=== PATIENT | female | born 1960 | race Caucasian/White ===

== ENCOUNTER 2023-07-04 10:45 | Outpatient (OUT) | payer MEDICARE, SELFPAY ==
--- NOTE | 2023-07-04 10:50 | MM_ITS ---
Patient: SAIRA TAVERAS Exam Date: 07/04/2023 : 1960 Gender:F Ordering : DR VALERI KASPER M.D. Admission #: [id number] Family : Order #: [id number] CLICK HERE TO VIEW EXAM RADIOLOGY REPORT PROCEDURE: MM TOMOSYNTHESIS SCREENING BI COMPARISON: MG MAMM SCREEN 3D DI CAD, 07/03/2022. MG MAMM SCREEN DI W CAD, 09/28/2020. MG MAMM SCREEN DI W CAD, 08/14/2019. MG MAMM DI SCRN W CAD DIG, 02/03/2014. INDICATIONS: Screening Calculator Name NCI Breast Cancer Risk Assessment Tool 5 Year Breast Cancer Risk 1.60% Lifetime Breast Cancer Risk 5.90% Personal Breast Cancer No Personal Ovarian Cancer No Treatments None Family Cancers Mother with leukemia cancer at age 27. LOCATION: [facility] BREAST COMPOSITION: Scattered areas fibroglandular density. FINDINGS: DIAGNOSTIC CATEGORY 2--BENIGN FINDING: RIGHT BREAST: No significant suspicious finding. Scattered benign-appearing lymph nodes are present. No significant change has occurred. LEFT BREAST: No significant suspicious finding. Scattered benign-appearing calcifications are present. Scattered benign-appearing lymph nodes are present. No significant change has occurred. RECOMMENDATIONS: ROUTINE MAMMOGRAM AND CLINICAL EVALUATION IN 12 MONTHS. PLEASE NOTE: A NORMAL MAMMOGRAM DOES NOT EXCLUDE THE POSSIBILITY OF BREAST CANCER. A CLINICALLY SUSPICIOUS PALPABLE LUMP SHOULD BE BIOPSIED. Dictated by: Casey Rose M.D. on 07/05/2023 at 14:39 Approved by: Casey Rose M.D. on 07/05/2023 at 14:42
== END 2023-07-04 10:46 | disposition home or self-care (01) ==
LOC: MAMMO 10:45
PROVIDERS: PCP Family Medicine; Visit Provider Family Medicine
DX: Z12.31 Encounter for screening mammogram for malignant neoplasm of breast (principal); Z80.6 Family history of leukemia
CPT/HCPCS: 77063; 77067

== ENCOUNTER 2023-07-13 10:10 | Outpatient (OUT) | payer MEDICARE, SELFPAY ==
--- NOTE | 2023-07-13 10:26 | XR_ITS ---
The [address] [address] Patient Name: SAIRA TAVERAS MRN: [id number] date: 1960 Sex: F Assigned Patient Location: [facility] Current Patient Location: [facility] Accession/Order Number: [id number] Exam Date: 07/13/2023 10:30 Report Date: 07/13/2023 21:23 At the request of: JOSSELYN SHEPHERD Procedure: XR foot RT min 3V Exam: Radiographs: XR ankle RT min 3V, XR foot RT min 3V Reason for exam: Acute ankle pain M79.871 Comparison: None XR/XR foot RT min 3V IMPRESSION: Mild right ankle soft tissue swelling. Degenerative changes throughout the right foot and ankle.. Old healed fifth metatarsal fracture. Right foot and ankle radiographs are otherwise unremarkable. Electronically authenticated by: LOLIS ROGERS Date: 07/13/2023 21:23
--- NOTE | 2023-07-13 10:26 | XR_ITS ---
The [address] [address] Patient Name: SAIRA TAVERAS MRN: [id number] date: 1960 Sex: F Assigned Patient Location: [facility] Current Patient Location: [facility] Accession/Order Number: [id number] Exam Date: 07/13/2023 10:30 Report Date: 07/13/2023 21:23 At the request of: JOSSELYN SHEPHERD Procedure: XR ankle RT min 3V Exam: Radiographs: XR ankle RT min 3V, XR foot RT min 3V Reason for exam: Acute ankle pain M79.871 Comparison: None XR/XR ankle RT min 3V IMPRESSION: Mild right ankle soft tissue swelling. Degenerative changes throughout the right foot and ankle.. Old healed fifth metatarsal fracture. Right foot and ankle radiographs are otherwise unremarkable. Electronically authenticated by: LOLIS ROGERS Date: 07/13/2023 21:23
== END 2023-07-13 10:11 | disposition home or self-care (01) ==
LOC: RAD 10:14
PROVIDERS: PCP Family Medicine; Visit Provider Nurse Practitioner Family
DX: M79.671 Pain in right foot (principal); M25.571 Pain in right ankle and joints of right foot; Z87.81 Personal history of (healed) traumatic fracture
CPT/HCPCS: 73610; 73630

== ENCOUNTER 2024-07-08 11:05 | Outpatient (OUT) | payer MEDICARE, SELFPAY ==
--- NOTE | 2024-07-08 11:10 | MM_ITS ---
Patient Name: SAIRA TAVERAS MR#: [id number] : 1960 Exam Date: 07/08/2024 Ordering Doctor: MRS. Liliana Cho NP RADIOLOGY REPORT PROCEDURE: MM TOMOSYNTHESIS SCREENING BI COMPARISON: MM TOMOSYNTHESIS SCREENING BI, 07/04/2023. MG MAMM SCREEN 3D DI CAD, 07/03/2022. MG MAMM SCREEN DI W CAD, 09/28/2020. MG MAMM DI SCRN W CAD DIG, 02/03/2014. INDICATIONS: Screening Calculator Name NCI Breast Cancer Risk Assessment Tool 5 Year Breast Cancer Risk 1.60% Lifetime Breast Cancer Risk 5.70% Personal Breast Cancer No Personal Ovarian Cancer No Treatments None Family Cancers Mother with leukemia cancer at age 27. LOCATION: [facility] BREAST COMPOSITION: There are scattered areas of fibroglandular density. FINDINGS: DIAGNOSTIC CATEGORY 2--BENIGN FINDING: RIGHT BREAST: No significant suspicious finding. No significant change has occurred. LEFT BREAST: No significant suspicious finding. Scattered benign-appearing lymph nodes are present. No significant change has occurred. RECOMMENDATIONS: ROUTINE MAMMOGRAM AND CLINICAL EVALUATION IN 12 MONTHS. PLEASE NOTE: A NORMAL MAMMOGRAM DOES NOT EXCLUDE THE POSSIBILITY OF BREAST CANCER. A CLINICALLY SUSPICIOUS PALPABLE LUMP SHOULD BE BIOPSIED. Dictated by: Casey Rose M.D. on 07/09/2024 at 15:11 Approved by: Casey Rose M.D. on 07/09/2024 at 15:13
--- NOTE | 2024-07-08 11:25 | XR_ITS ---
The [address] [address] Patient Name: SAIRA TAVERAS MRN: [facility]:[id number] date: 1960 Sex: F Assigned Patient Location: [facility] Current Patient Location: [facility] Accession/Order Number: [id number] Exam Date: 07/08/2024 11:35 Report Date: 07/08/2024 13:23 At the request of: FABIAN SINHA Procedure: XR DEXA axial skeleton EXAMINATION: XR DEXA axial skeleton HISTORY: Medicare Wellness, Follow Up Exam Treatment Neoplasm COMPARISON: DEXA bone densitometry 07/07/2022 TECHNIQUE: Dual-energy X-ray absorptiometry (DXA) was performed. FINDINGS: SPINE ANALYSIS: Average bone mineral density is 1.462 g/cm2. T-score (standard deviation relative to young adult mean): 2.2 . +6.2% change since prior study. HIP ANALYSIS: Lowest bone mineral density is within the left femoral neck, 0.861 g/cm2. T-score (standard deviation relative to young adult mean): -1.3 . -1.0% change since prior study. XR/XR DEXA axial skeleton IMPRESSION: World Health Organization Classification: Osteopenia - Moderate Fracture Risk FRAX: Cannot be calculated. Pharmacologic treatment recommendations * No uniform recommendation applies to all patients. Management plans must be individualized. * Consider initiating pharmacologic treatment in postmenopausal women and men >= 50 years of age who have the following: Primary fracture prevention: * T-score <= - 2.5 at the femoral neck, total hip, lumbar spine, 33% radius (some uncertainty with existing data) by DXA. * Low bone mass (osteopenia: T-score between - 1.0 and - 2.5) at the femoral neck or total hip by DXA with a 10-year hip fracture risk >= 3% or a 10-year major osteoporosis-related fracture risk >= 20% (i.e., clinical vertebral, hip, forearm, or proximal humerus) based on the US-adapted FRAXregistered model. Secondary fracture prevention: * Fracture of the hip or vertebra regardless of BMD [4, 5]. * Fracture of proximal humerus, pelvis, or distal forearm in persons with low bone mass (osteopenia: T-score between - 1.0 and - 2.5). The decision to treat should be individualized in persons with a fracture of the proximal humerus, pelvis, or distal forearm who do not have osteopenia or low BMD [12, 13]. Grant MS, Precious SL, Abhijeet KL, Jailene EM, Bravo KG, AJ, Shelly ES. The clinician's guide to prevention and treatment of osteoporosis. Osteoporos Int. 2021;33(10):4276-3385. doi: 10.1007/h40604-571-93139-t. Epub 2021Feb 09. Erratum in: Osteoporos Int. 2021May 11;: PMID: 02897988; PMCID: [id number]. Electronically authenticated by: JASEN SOL Date: 07/08/2024 13:23
== END 2024-07-08 11:06 | disposition home or self-care (01) ==
LOC: MAMMO 11:06
PROVIDERS: PCP Family Medicine; Visit Provider Nurse Practitioner Family
DX: Z12.31 Encounter for screening mammogram for malignant neoplasm of breast (principal); Z09 Encounter for follow-up examination after completed treatment for conditions other than malignant neoplasm; Z00.00 Encounter for general adult medical examination without abnormal findings; Z80.6 Family history of leukemia; M85.88 Other specified disorders of bone density and structure, other site
CPT/HCPCS: 77063; 77067; 77080

== ENCOUNTER 2025-07-10 12:45 | Outpatient (OUT) | payer MEDICARE, SELFPAY ==
--- OUTSIDE RECORDS SUMMARY | 2025-07-10 12:48 | XMS_ITS | Encounter Summary ---
Author Organization [facility] Address [address] [place] [address] Care Team Providers Care Currency Examiner Name Role Phone Christina Martinez MD Unavailable Christina Martinez MD Primary Care Provider [phone] Shawanda Meza RN Unavailable Simin Lanier LPN Unavailable Tri Walsh NP Unavailable [phone] Encounter Details Date Type Department Care Team (Late st Contact Info) Description 07/05/2023 Orders Only [facility] [place] [facility] [address] [place] [phone] Christina Martinez MD [address] [place] [address] Social History Tobacco Use Types Packs/Day Years Used Date Smoking Tobacco: Former Cigarettes Q uit: 12/04/2017 Smokeless Tobacco: Never Alcohol Use Standard Drinks/Week Comments Never 0 (1 standard drink = 0.6 oz pur e alcohol) Humiliation, Afraid, Rape, and Kick questionnair e Answer Date Recorded Within the last year, have y ou been afraid of your partner or ex-partner? No 06/04/2023 Within the last year, have y ou been humiliated or emotionally abused in other ways by your partner or ex-partner? No Within the last year, have y ou been kicked, hit, slapped, or otherwise physically hurt by your partner or ex-partner? No 06/04/2023 Within the last year, have y ou been raped or forced to have any kind of sexual activity by your partner or ex-partner? No 06/04/2023 Social Connection and Isolat ion Panel [NHANES] Answer Date Recorded In a typical week, how many times do you talk on the phone with family, friends, or neighbors? More than three times a week 06/04/2023 How often do you get togethe r with friends or relatives? More than three times a week 06/04/2023 How often do you attend chur or quaker services? More than 4 times per year 06/04/2023 Do you belong to any clubs o r organizations such as presybeterian groups, unions, fraternal or athletic groups, or school groups? No 06/04/2023 How often do you attend meet ings of the clubs or organizations you belong to? Never 06/04/2023 Are you , , di vorced, , never , or living with a partner? 06/04/2023 AUDIT-C Answer Date Recorded Q1: How often do you have a drink containing alc ohol? Monthly or less 06/04/2023 Q2: How many drinks containi ng alcohol do you have on a typical day when you are drinking? 1 or 2 06/04/2023 Q3: How often do you have si x or more drinks on one occasion? Never 06/04/2023 Overall Financial Resource Strain (CARDIA) Answe r Date Recorded How hard is it for you to pa y for the very basics like food, housing, medical care, and heating? Not hard at all 06/04/2023 PHQ-2 Answer Date Recorded Patient Health Questionnaire-2 Score 0 04/20/2023 [facility] - Occupational Stress Questionnaire Answer Date Recorded Do you feel stress - tense, restless, nervous, or anxious, or unable to sleep at night because your mind is troubled all the time - these days? Only a little 06/04/2023 Exercise Vital Sign Answer Date Recorde d On average, how many days pe r week do you engage in moderate to strenuous exercise (like a brisk walk)? 1 day 06/04/2023 On average, how many minutes do you engage in exercise at this level? 10 min 06/04/2023 Hunger Vital Sign Answer Date Recorded Within the past 12 months, y ou worried that your food would run out before you got the money to buy more. Never true 06/04/20 23 Within the past 12 months, t he food you bought just didn't last and you didn't have money to get more. Never true 06/04/2023 PRAPARE - Transportation Answer Date Re corded In the past 12 months, has l ack of transportation kept you from medical appointments or from getting medications? No 05/16 In the past 12 months, has l ack of transportation kept you from meetings, work, or from getting things needed for daily living? No 06/04/2023 Housing Stability Vital Sign Answer Luis Carlos e Recorded In the last 12 months, was t here a time when you were not able to pay the mortgage or rent on time? No 06/04/2023 In the last 12 months, how many places have you lived? 1 06/04/2023 In the last 12 months, was t here a time when you did not have a steady place to sleep or slept in a long-term (including now)? No 06/04/2023 Comments Unknown Sex and Gender Information Value Date Recorded Sex Assigned at Not on file Legal Sex Female 7:30 PM EDT Gender Identity Not on file Sexual Orientation Not on file documented as of this encounter Plan of Treatment Upcoming Encounters Date Type Department Care Team (Late st Contact Info) Description 08/11/2025 1:30 PM EDT Office Visit [facility] [address] [place] [address] Christina Martinez MD [address] [facility] [address] [place] [address] 09/15/2025 10:00 AM EST Office Visit [facility] [address] [place] [address] Herve Quintana PA [address] [place] [address] documented as of this encounter Procedures Procedure Name Priority Date/Time Associated Diagnosis Comments MAMMOGRAM* Routine 07/04/2023 3:16 PM EDT documented in this encounter Results * MAMMOGRAM* (07/04/2023 3:16 PM EDT) Anatomical Region Laterality Modality Radiographic Holli ging Narrative 07/04/2023 3:16 PM EDT normal Christina Martinez MD IMG XR PROCEDURES Edited Result - Final documented in this encounter Visit Diagnoses Not on filedocumented in this encounter Care Teams Currency Examiner Relationship Specialty Start Date End Date Christina Martinez MD [address] [facility] [address] [place] [address] PCP - Janell GUERRERO 10/15/21 Christina Martinez MD [address] [facility] [address] [place] [address] PCP - General Family Medicine 02/22/23 Shawanda Meza, TIANA [address] [place] [address] Clinical Advocate Family Medicine 11/21/24 01/02/25 Simin Lanier LPN [address] [facility] [address] [place] [address] 01/02/25 Tri Walsh NP [address] [facility] [address] [place] [address] Nurse Practitioner Neurology 01/14/25 documented as of this encounter
--- OUTSIDE RECORDS SUMMARY | 2025-07-10 12:48 | XMS_ITS | Encounter Summary ---
Author Organization [facility] Address [address] [place] [address] Care Team Providers Care Locomotive Engineer Name Role Phone Christina Martinez MD Unavailable Christina Martinez MD Primary Care Provider Shawanda Meza RN Unavailable Simin Lanier LPN Unavailable Tri Walsh NP Unavailable [phone] Encounter Details Date Type Department Care Team (Late st Contact Info) Description 08/14/2023 Abstract [facility] [place] [facility] [address] [facility] 110 [place] [phone] Christina Martinez MD 112 [facility] 110 [place] [address] Social History Tobacco Use Types Packs/Day Years [...] How often do you attend chur or cheondoism services? More than 4 times per year 06/04/2023 Do you belong to any clubs o r organizations such as alevism groups, unions, fraternal or athletic groups, or [...] Recorded Patient Health Questionnaire-2 Score 0 04/20/2023 [facility] Health - Occupational Stress Questionnaire Answer Date [...] place to sleep or slept in a alf (including now)? No 06/04/2023 Comments Unknown Sex and Gender Information Value Date Recorded Sex Assigned at Not on file Legal Sex Female 7:30 PM EDT Gender Identity Not on file Sexual Orientation Not on file documented as of this encounter Plan of Treatment Upcoming Encounters Date Type Department Care Team (Late st Contact Info) Description 08/11/2025 1:30 PM EDT Office Visit [facility] [address] [facility] [address] [place] [address] Christina Martinez MD [address] [facility] [address] [place] [address] 09/15/2025 10:00 AM EST Office Visit [facility] [address] [place] [address] Herve Quintana PA [address] [place] [address] documented as of this encounter Visit Diagnoses Not on filedocumented in this encounter Care Teams Locomotive Engineer Relationship Specialty Start Date End Date Christina Martinez MD [address] [facility] [address] [place] [address] PCP - Janell GUERRERO 10/15/21 Christina Martinez MD [address] [facility] [address] [place] [address] PCP - General Family Medicine 02/22/23 Shawanda Meza, TIANA [address] [place] [address] Clinical Advocate Family Medicine 11/21/24 01/02/25 Simin Lanier LPN [address] [facility] [address] [place] [address] 01/02/25 Tri Walsh NP [address] [facility] [address] [place] [address] Nurse Practitioner Neurology 01/14/25 documented as of this encounter
--- OUTSIDE RECORDS SUMMARY | 2025-07-10 12:48 | XMS_ITS | Encounter Summary ---
Author Organization [facility] Address [address] [place] [address] Care Team Providers Care Mate First Name Role Phone Christina Kasper MD Unavailable Christina Kasper MD Primary Care Provider [phone] Shawanda Meza RN Unavailable [phone] Simin Lanier LPN Unavailable Tri Walsh NP Unavailable [phone] Encounter Details Date Type Department Care Team (Late st Contact Info) Description 07/05/2023 Clinisync Result Encounter [facility] External Department Unsolicited Christina Kasper MD [address] [facility] [address] [place] [address] Social History Tobacco Use Types Packs/Day Years [...] any clubs o r organizations such as judaism groups, unions, fraternal or athletic groups, or [...] Recorded Patient Health Questionnaire-2 Score 0 04/20/2023 [facility] Health - Occupational Stress Questionnaire Answer Date [...] place to sleep or slept in a senior care (including now)? No 06/04/2023 Comments Unknown Sex and Gender Information Value Date Recorded Sex Assigned at Not on file Legal Sex Female 7:30 PM EDT Gender Identity Not on file Sexual Orientation Not on file documented as of this encounter Plan of Treatment Upcoming Encounters Date Type Department Care Team (Late st Contact Info) Description 08/11/2025 1:30 PM EDT Office Visit [facility] [address] [facility] [address] [place] [address] Christina Kasper MD 112 [facility] 110 [place] [address] 09/15/2025 10:00 AM EST Office Visit [facility] [address] [place] [address] eHrve Quintana PA [address] [place] [address] documented as of this encounter Procedures Procedure Name Priority Date/Time Associated Diagnosis Comments MM TOMOSYNTHESIS SCREENING BI 07/05/2023 2:42 PM EDT documented in this encounter Results * MM TOMOSYNTHESIS SCREENING BI (07/05/2023 2:42 PM EDT) Anatomical Region Laterality Modality Other 07/05/2023 2:42 PM EDT Narrative 07/05/2023 2:42 [place] [address] Mammography Report Signed Patient: MARYJANE TRIPP MR#: [id number] : 1960 Acct:[id number] Age/Sex: 63 / F ADM Date: 07/04/23 Loc: MAMMO Attending Dr: CHRISTINA KASPER Ordering Physician: CHRISTINA KASPER Results: Date of Service: 07/04/23 Follow Up: Procedure(s): MM tomosynthesis screening BI Accession Number(s): [id number] cc: CHRISTINA KASPER Patient: MARYJANE TRIPP. Exam Date: 07/04/2023 : 1960 Gender:F Ordering : DR CHRISTINA KASPER M.D. Admission #: [id number] Family : Order #: [id number] CLICK HERE TO VIEW EXAM RADIOLOGY REPORT PROCEDURE: MM TOMOSYNTHESIS SCREENING BI COMPARISON: MG MAMM SCREEN 3D DI CAD, 07/03/2022. MG MAMM SCREEN DI W CAD, 09/28/2020. MG MAMM SCREEN DI W CAD, 08/14/2019. MG MAMM DI SCRN W CAD DIG, 02/03/2014. INDICATIONS: Screening Calculator Name NCI Breast Cancer Risk Assessment Tool 5 Year Breast Cancer Risk 1.60% Lifetime Breast Cancer Risk 5.90% Personal Breast Cancer No Personal Ovarian Cancer No Treatments None Family Cancers Mother with leukemia cancer at age 27. LOCATION: The [facility] BREAST COMPOSITION: Scattered areas fibroglandular density. FINDINGS: DIAGNOSTIC CATEGORY 2--BENIGN FINDING: RIGHT BREAST: No significant suspicious finding. Scattered benign-appearing lymph nodes are present. No significant change has occurred. LEFT BREAST: No significant suspicious finding. Scattered benign-appearing calcifications are present. Scattered benign-appearing lymph nodes are present. No significant change has occurred. RECOMMENDATIONS: ROUTINE MAMMOGRAM AND CLINICAL EVALUATION IN 12 MONTHS. PLEASE NOTE: A NORMAL MAMMOGRAM DOES NOT EXCLUDE THE POSSIBILITY OF BREAST CANCER. A CLINICALLY SUSPICIOUS PALPABLE LUMP SHOULD BE BIOPSIED. Dictated by: Casey Rose M.D. on 07/05/2023 at 14:39 Approved by: Casey Rose M.D. on 07/05/2023 at 14:42 Dictated By: Casey Rose M.D. Signed By: 07/05/23 144 DD/ 41 TD/TT: Program Analyst: Procedure Note Radiology, Radiologist, MD - 07/06/2023 [place] [address] Mammography Report Signed Patient: MARYJANE TRIPP AMR#: [id number] : 1960cct:[id number] Age/Sex: 63 / FADM Date: 07/04/23 Loc: MAMMO Attending Dr: CHRISTINA KASPER Ordering Physician: Bill KASPERults: Date of Service: 07/04/23Follow Up: Procedure(s): MM tomosynthesis screening BI Accession Number(s): [id number] cc: CHRISTINA KASPER Patient: MARYJANE TRIPP Exam Date: 07/04/2023 : 1960 Gender:F Ordering : DR CHRISTINA KASPER M.D. Admission #: [id number] Family : Order #: [id number] CLICK HERE TO VIEW EXAM RADIOLOGY REPORT PROCEDURE: MM TOMOSYNTHESIS SCREENING BI COMPARISON: MG MAMM SCREEN 3D DI CAD, 07/03/2022. MG MAMM SCREEN BILW CAD, 09/28/2020. MG MAMM SCREEN DI W CAD, 08/14/2019. MG MAMM DI SCRNW CAD DIG, 02/03/2014. INDICATIONS: Screening Calculator Name NCI Breast Cancer Risk Assessment Tool 5 Year Breast Cancer Risk 1.60% Lifetime Breast Cancer Risk 5.90% Personal Breast Cancer No Personal Ovarian Cancer No Treatments None Family Cancers Mother with leukemia cancer at age 27. LOCATION: The [facility] BREAST COMPOSITION: Scattered areas fibroglandular density. FINDINGS: DIAGNOSTIC CATEGORY 2--BENIGN FINDING: RIGHT BREAST: No significant suspicious finding. Scatteredbenign-appearing lymph nodes are present. No significant change has occurred. LEFT BREAST: No significant suspicious finding. Scatteredbenign-appearing calcifications are present. Scattered benign-appearing lymph nodes are present. No significant change has occurred. RECOMMENDATIONS: ROUTINE MAMMOGRAM AND CLINICAL EVALUATION IN 12 MONTHS. PLEASE NOTE: A NORMAL MAMMOGRAM DOES NOT EXCLUDE THE POSSIBILITY OFBREAST CANCER. A CLINICALLY SUSPICIOUS PALPABLE LUMP SHOULD BE BIOPSIED. Dictated by: Casey Rose M.D. on 07/05/2023 at 14:39 Approved by: Casey Rose M.D. on 07/05/2023 at 14:42 Dictated By: Casey Rose M.D. Signed By:07/05/231442 DD/ 41 TD/TT: Program Analyst: Christina Kasper MD [facility] Final Result documented in this encounter Visit Diagnoses Not on filedocumented in this encounter Care Teams Mate First Relationship Specialty Start Date End Date Christina Kasper MD [address] [facility] [address] [place] [address] PCP - Janell GUERRERO 10/15/21 Christina Kasper MD [address] [facility] 110 [place] [address] PCP - General Family Medicine 02/22/23 Shawanda Meza RN [address] [place] [address] Clinical Advocate Family Medicine 11/21/24 01/02/25 Simin Lnaier LPN [address] [facility] [address] [place] [address] 01/02/25 Tri Walsh NP [address] [facility] [address] [place] [address] Nurse Practitioner Neurology 01/14/25 documented as of this encounter
--- OUTSIDE RECORDS SUMMARY | 2025-07-10 12:48 | XMS_ITS | Encounter Summary ---
Author Organization [facility] Address [address] [place] [place] [address] Care Team Providers Care Spectacle Truer Name Role Phone Christina Kapser MD Unavailable Christina Kasper MD Primary Care Provider [phone] Shawanda Meza RN Unavailable Simin Lanier LPN Unavailable Tri Walsh NP Unavailable [phone] Encounter Details Date Type Department Care Team (Late st Contact Info) Description 07/09/2024 Clinisync Result Encounter [facility] External Department Unsolicited Liliana Cho, RESEARCH PROJECT MANAGER [address] [facility] 110 [place] [address] Social History Tobacco Use Types Packs/Day Years [...] How often do you attend chur or pentecostalism services? More than 4 times per year 06/04/2023 Do you belong to any clubs o r organizations such as sikh groups, unions, fraternal or athletic groups, or [...] Answer Date Recorded Patient Health Questionnaire-2 Score 1 01/10/2024 [facility] - [...] place to sleep or slept in a custodial (including now)? No 06/04/2023 Comments Unknown Sex and Gender Information Value Date Recorded Sex Assigned at Not on file Legal Sex Female 7:30 PM EDT Gender Identity Not on file Sexual Orientation Not on file documented as of this encounter Plan of Treatment Upcoming Encounters Date Type Department Care Team (Late st Contact Info) Description 08/11/2025 1:30 PM EDT Office Visit [facility] 112 [facility] 110 [place] [address] Christina Kasper MD 112 [facility] 110 [place] [address] 09/15/2025 10:00 AM EST Office Visit [facility] [address] [place] [address] Herve Quintana PA [address] [place] [address] documented as of this encounter Procedures Procedure Name Priority Date/Time Associated Diagnosis Comments MM TOMOSYNTHESIS SCREENING BI 07/09/2024 3:14 PM EDT documented in this encounter Results * MM TOMOSYNTHESIS SCREENING BI (07/09/2024 3:14 PM EDT) Anatomical Region Laterality Modality Other 07/09/2024 3:14 PM EDT Narrative 07/09/2024 3:14 PM EDT The [address] [address] Mammography Report Signed Patient: MARYJANE TRIPP MR#: [id number] : 1960 Acct:[id number] Age/Sex: 64 / F ADM Date: 07/08/24 Loc: MAMMO Attending Dr: Liliana Cho NP Ordering Physician: Liliana Cho NP Results: Date of Service: 07/08/24 Follow Up: Procedure(s): MM tomosynthesis screening BI Accession Number(s): [id number] cc: CHRISTINA KASPER ; Liliana Cho NP Patient Name: MARYJANE TRIPP MR#: [id number] : 1960 Exam Date: 07/08/2024 Ordering Doctor: MRS. Liliana Cho NP RADIOLOGY REPORT PROCEDURE: MM TOMOSYNTHESIS SCREENING BI COMPARISON: MM TOMOSYNTHESIS SCREENING BI, 07/04/2023. MG MAMM SCREEN 3D DI CAD, 07/03/2022. MG MAMM SCREEN DI W CAD, 09/28/2020. MG MAMM DI SCRN W CAD DIG, 02/03/2014. INDICATIONS: Screening Calculator Name NCI Breast Cancer Risk Assessment Tool 5 Year Breast Cancer Risk 1.60% Lifetime Breast Cancer Risk 5.70% Personal Breast Cancer No Personal Ovarian Cancer No Treatments None Family Cancers Mother with leukemia cancer at age 27. LOCATION: [facility] BREAST COMPOSITION: There are scattered areas of fibroglandular density. FINDINGS: DIAGNOSTIC CATEGORY 2--BENIGN FINDING: RIGHT BREAST: No significant suspicious finding. No significant change has occurred. LEFT BREAST: No significant suspicious finding. Scattered benign-appearing lymph nodes are present. No significant change has occurred. RECOMMENDATIONS: ROUTINE MAMMOGRAM AND CLINICAL EVALUATION IN 12 MONTHS. PLEASE NOTE: A NORMAL MAMMOGRAM DOES NOT EXCLUDE THE POSSIBILITY OF BREAST CANCER. A CLINICALLY SUSPICIOUS PALPABLE LUMP SHOULD BE BIOPSIED. Dictated by: Casey Rose M.D. on 07/09/2024 at 15:11 Approved by: Casey Rose M.D. on 07/09/2024 at 15:13 Dictated By: Casey Rose M.D. Signed By: 07/09/244 DD/ 13 TD/TT: District Adviser: Procedure Note Radiology, Radiologist, MD - 07/09/2024 The [place] [id number] Mammography Report Signed Patient: MRAYJANE TRIPP AMR#: [id number] : 1960cct:[id number] Age/Sex: 64 / FADM Date: 07/08/24 Loc: MAMMO Attending Dr: Liliana Cho RESEARCH PROJECT MANAGER Ordering Physician: Liliana Cho NPResults: Date of Service: 07/08/24Follow Up: Procedure(s): MM tomosynthesis screening BI Accession Number(s): [id number] cc: CHRISTINA KASPER ; Liliana Cho NP Patient Name: MARYJANE TRIPP MR#: [id number] : 1960 Exam Date: 07/08/2024 Ordering Doctor: MRS. Liliana Cho RESEARCH PROJECT MANAGER RADIOLOGY REPORT PROCEDURE: MM TOMOSYNTHESIS SCREENING BI COMPARISON: MM TOMOSYNTHESIS SCREENING BI, 07/04/2023. MG MAMM [id number] DI CAD, 07/03/2022. MG MAMM SCREEN DI W CAD, 09/28/2020. MG MAMM BILSCRN W CAD DIG, 02/03/2014. INDICATIONS: Screening Calculator Name NCI Breast Cancer Risk Assessment Tool 5 Year Breast Cancer Risk 1.60% Lifetime Breast Cancer Risk 5.70% Personal Breast Cancer No Personal Ovarian Cancer No Treatments None Family Cancers Mother with leukemia cancer at age 27. LOCATION: [facility] BREAST COMPOSITION: There are scattered areas of fibroglandulardensity. FINDINGS: DIAGNOSTIC CATEGORY 2--BENIGN FINDING: RIGHT BREAST: No significant suspicious finding. No significant changehas occurred. LEFT BREAST: No significant suspicious finding. Scatteredbenign-appearing lymph nodes are present. No significant change has occurred. RECOMMENDATIONS: ROUTINE MAMMOGRAM AND CLINICAL EVALUATION IN 12 MONTHS. PLEASE NOTE: A NORMAL MAMMOGRAM DOES NOT EXCLUDE THE POSSIBILITY OFBREAST CANCER. A CLINICALLY SUSPICIOUS PALPABLE LUMP SHOULD BE BIOPSIED. Dictated by: Casey Rose M.D. on 07/09/2024 at 15:11 Approved by: Casey Rose M.D. on 07/09/2024 at 15:13 Dictated By: Casey Rose M.D. Signed By:07/09/24 1514 DD/ 1514 TD/TT: District Adviser: Liliana Cho RESEARCH PROJECT MANAGER [facility] Final Result documented in this encounter Visit Diagnoses Not on filedocumented in this encounter Additional Health Concerns Assessment Noted Time PHQ-9 Depression Total Score: 9 01/10/20 24 10:00 AM EDT documented as of this encounter Care Teams Spectacle Truer Relationship Specialty Start Date End Date Christina Kasper MD [address] [facility] 110 [place] [address] PCP - Janell GUERRERO 10/15/21 Christina Kasper MD [address] [facility] 110 [place] [address] PCP - General Family Medicine 02/22/23 Shawanda Meza, RN [address] [place] [address] Clinical Advocate Family Medicine 11/21/24 01/02/25 Simin Lanier LPN [address] [facility] 110 [place] [address] 01/02/25 Tri Walsh NP [address] [facility] 110 [place] [address] Nurse Practitioner Neurology 01/14/25 documented as of this encounter
--- OUTSIDE RECORDS SUMMARY | 2025-07-10 12:48 | XMS_ITS | Encounter Summary ---
Author Organization [facility] Address [address] [place] [address] Care Team Providers Care Private Branch Exchange Service Adviser Name Role Phone Christina Martinez MD Unavailable Christina Martinez MD Primary Care Provider Shawanda Meza RN Unavailable Simin Lanier LPN Unavailable Tri Walsh NP Unavailable [phone] Encounter Details Date Type Department Care Team (Late st Contact Info) Description 06/12/2023 Abstract [facility] [place] [facility] 112 [facility] 110 [place] [phone] Christina Martinez MD 112 [facility] 110 [place], [place] [address] Social History Tobacco Use Types Packs/Day Years [...] How often do you attend chur or rastafarian services? More than 4 times per year 06/04/2023 Do you belong to any clubs o r organizations such as amish groups, unions, fraternal or athletic groups, or [...] Recorded Patient Health Questionnaire-2 Score 0 04/20/2023 [facility] Health - Occupational Stress Questionnaire Answer Date [...] place to sleep or slept in a assisted (including now)? No 06/04/2023 Comments Unknown Sex and Gender Information Value Date Recorded Sex Assigned at Not on file Legal Sex Female 7:30 PM EDT Gender Identity Not on file Sexual Orientation Not on file documented as of this encounter Plan of Treatment Upcoming Encounters Date Type Department Care Team (Late st Contact Info) Description 08/11/2025 1:30 PM EDT Office Visit [facility] [address] [facility] 110 [place] [address] Christina Martinez MD [address] [facility] 110 [place] [address] 09/15/2025 10:00 AM EST Office Visit [facility] [address] [place] [address] Herve Quintana PA [address] [place] [address] documented as of this encounter Visit Diagnoses Not on filedocumented in this encounter Care Teams Private Branch Exchange Service Adviser Relationship Specialty Start Date End Date Christina Martinez MD [address] [facility] [address] [place] [address] PCP - Janell GUERRERO 10/15/21 Christina Martinez MD [address] [facility] [address] [place] [address] PCP - General Family Medicine 02/22/23 Shawanda Meza, TIANA [address] [place] [address] Clinical Advocate Family Medicine 11/21/24 01/02/25 Simin Lanier LPN [address] [facility] 110 [place] [address] 01/02/25 Tri Walsh NP [address] [facility] 110 [place] [address] Nurse Practitioner Neurology 01/14/25 documented as of this encounter
--- OUTSIDE RECORDS SUMMARY | 2025-07-10 12:48 | XMS_ITS | Encounter Summary ---
Author Organization [facility] Address [address] [place] [address] Care Team Providers Care Clinical Transplant Coordinator Name Role Phone Christina Martinez MD Unavailable Christina Martinez MD Primary Care Provider Shawanda Meza RN Unavailable Simin Lanier LPN Unavailable Tri Walsh NP Unavailable [phone] Encounter Details Date Type Department Care Team (Late st Contact Info) Description 08/28/2024 Abstract [facility] [place] [facility] 112 [facility] 110 [place] [address] Christina Martinez MD 112 [facility] 110 [place] [address] Social History Tobacco Use Types Packs/Day Years Used Date Smoking Tobacco: Former Cigarettes Q uit: 12/04/2017 Smokeless Tobacco: Never Alcohol Use Standard Drinks/Week Comments Never 0 (1 standard drink = 0.6 oz pur e alcohol) B1300 Health Literacy Answer Date Recor ded How often do you need to hav e someone help you when you read instructions, pamphlets, or other written material from your doctor or pharmacy? Never 07/16/2024 Humiliation, Afraid, Rape, and Kick questionnair e Answer Date Recorded Within the last year, have y ou been afraid of your partner or ex-partner? No 07/16/2024 Within the last year, have y ou been humiliated or emotionally abused in other ways by your partner or ex-partner? No Within the last year, have y ou been kicked, hit, slapped, or otherwise physically hurt by your partner or ex-partner? No 07/16/2024 Within the last year, have y ou been raped or forced to have any kind of sexual activity by your partner or ex-partner? No 07/16/2024 Social Connection and Isolat ion Panel [NHANES] Answer Date Recorded In a typical week, how many times do you talk on the phone with family, friends, or neighbors? More than three times a week 07/16/2024 How often do you get togethe r with friends or relatives? More than three times a week 07/16/2024 How often do you attend chur or mandaeism services? 1 to 4 times per year 07/16/2024 Do you belong to any clubs o r organizations such as yazdanism groups, unions, fraternal or athletic groups, or school groups? No 07/16/2024 How often do you attend meet ings of the clubs or organizations you belong to? Never 07/16/2024 Are you , , di vorced, , never , or living with a partner? 07/16/2024 AUDIT-C Answer Date Recorded Q1: How often [...] Date Recorded Patient Health Questionnaire-2 Score 0 08/26/2024 [facility] Health - Occupational Stress [...] place to sleep or slept in a correction (including now)? No 06/04/2023 Comments Unknown Sex and Gender Information Value Date Recorded Sex Assigned at Not on file Legal Sex Female 7:30 PM EDT Gender Identity Not on file Sexual Orientation Not on file documented as of this encounter Plan of Treatment Upcoming Encounters Date Type Department Care Team (Late st Contact Info) Description 08/11/2025 1:30 PM EDT [facility] [place] [facility] [address] [facility] 110 [place] [address] Christina Martinez MD [address] [facility] 110 [place] [address] 09/15/2025 10:00 AM EST Office Visit [facility] [place] [address] Herve Quintana, YUNIER [address] [place] [address] documented as of this encounter Visit Diagnoses Not on filedocumented in this encounter Additional Health Concerns Assessment Noted Time PHQ-9 Depression Total Score: 9 01/10/20 24 10:00 AM EDT documented as of this encounter Care Teams Clinical Transplant Coordinator Relationship Specialty Start Date End Date Christina Martinez MD [address] [facility] 110 [place] [address] PCP - Janell GUERRERO 10/15/21 Christina Martinez MD [address] [facility] 110 [place] [address] PCP - General Family Medicine 02/22/23 Shawanda Meza, TIANA [address] [place], [place] [phone] Clinical Advocate Family Medicine 11/21/24 01/02/25 Simin Lanier LPN [address] [facility] 110 [place] [address] 01/02/25 Tri Walsh NP [address] [facility] 110 [place] [address] Nurse Practitioner Neurology 01/14/25 documented as of this encounter
--- OUTSIDE RECORDS SUMMARY | 2025-07-10 12:48 | XMS_ITS | Encounter Summary ---
Author Organization [facility] Address [address] [place] [address] Care Team Providers Care Agricultural And Forestry Supervisor Name Role Phone Christina Martinez MD Unavailable Christina Martinez MD Primary Care Provider [phone] Shawanda Meza RN Unavailable [phone] Simin Lanier LPN Unavailable Tri Walsh NP Unavailable [phone] Encounter Details Date Type Department Care Team (Late st Contact Info) Description 08/22/2023 Abstract [facility] [place] [facility] 112 [facility] 110 [place] [address] Christina Martinez MD 112 [facility] 110 [place] [address] Social History Tobacco Use Types Packs/Day Years [...] How often do you attend chur or jainism services? More than 4 times per year 06/04/2023 Do you belong to any clubs o r organizations such as worship groups, unions, fraternal or athletic groups, or [...] Recorded Patient Health Questionnaire-2 Score 0 04/20/2023 [facility] Occupat ionnh Health - Occupational Stress Questionnaire Answer Date [...] place to sleep or slept in a fci (including now)? No 06/04/2023 Comments Unknown Sex and Gender Information Value Date Recorded Sex Assigned at Not on file Legal Sex Female 7:30 PM EDT Gender Identity Not on file Sexual Orientation Not on file documented as of this encounter Plan of Treatment Upcoming Encounters Date Type Department Care Team (Late st Contact Info) Description 08/11/2025 1:30 PM EDT Office Visit [facility] [address] [facility] 110 [place] [address] Christina Martinez MD [address] [facility] 110 [place] [address] 09/15/2025 10:00 AM EST Office Visit [facility] [address] [place] [address] Herve Quintana PA [address] [place] [address] documented as of this encounter Visit Diagnoses Not on filedocumented in this encounter Care Teams Agricultural And Forestry Supervisor Relationship Specialty Start Date End Date Christina Martinez MD [address] [facility] [address] [place] [address] PCP - Janell GUERRERO 10/15/21 Christina Martinez MD [address] [facility] [address] [place] [address] PCP - General Family Medicine 02/22/23 Shawanda Meza, TIANA [address] [place] [address] Clinical Advocate Family Medicine 11/21/24 01/02/25 Simin Lanier LPN [address] [facility] 110 [place] [address] 01/02/25 Tri Walsh NP [address] [facility] [address] [place] [address] Nurse Practitioner Neurology 01/14/25 documented as of this encounter
--- OUTSIDE RECORDS SUMMARY | 2025-07-10 12:48 | XMS_ITS | Clinical Summary ---
Author Organization [facility] Address [address] [place] [address], [address] [place] [address] Care Team Providers Care Rehab Department Manager Name Role Phone Yasmany Barnett DO Primary Care Provider Unavail able Social History Tobacco Use Types Packs/Day Years Used Date Smoking Tobacco: Never Assessed Comments Unknown Sex and Gender Information Value Date Recorded Sex Assigned at Not on file Legal Sex Female 11:54 PM EST Gender Identity Not on file Sexual Orientation Not on file Plan of Treatment Not on file Care Teams Rehab Department Manager Relationship Specialty Start Date End Date Yasmany Barnett DO PCP - General 05/16/12
--- OUTSIDE RECORDS SUMMARY | 2025-07-10 12:48 | XMS_ITS | Encounter Summary ---
Author Organization [facility] Address [address] [place] [address] Care Team Providers Care Tier Truck Driver Name Role Phone Christina Martinez MD Unavailable Christina Martinez MD Primary Care Provider Shawanda Meza RN Unavailable Simin Lanier LPN Unavailable Tri Walsh NP Unavailable [phone] Encounter Details Date Type Department Care Team (Late st Contact Info) Description 05/09/2023 Abstract [facility] 112 [facility] 110 [place] [phone] Christina Martinez MD 112 [facility] 110 [place] [address] Social History Tobacco Use Types Packs/Day Years Used Date Smoking Tobacco: Former Cigarettes Q uit: 12/04/2017 Smokeless Tobacco: Never Alcohol Use Standard Drinks/Week Comments Never 0 (1 standard drink = 0.6 oz pur e alcohol) PHQ-2 Answer Date Recorded Patient Health Questionnaire-2 Score 0 04/20/2023 Comments Unknown Sex and Gender Information Value Date Recorded Sex Assigned at Not on file Legal Sex Female 7:30 PM EDT Gender Identity Not on file Sexual Orientation Not on file documented as of this encounter Plan of Treatment Upcoming Encounters Date Type Department Care Team (Late st Contact Info) Description 08/11/2025 1:30 PM EDT Office Visit [facility] [place] [address] [facility] [address] [place] [address] Christina Martinez MD [address] [facility] 110 [place] [address] 09/15/2025 10:00 AM EST Office Visit [facility] [address] [place] [address] Herve Quintana PA [address] [place] [address] documented as of this encounter Visit Diagnoses Not on filedocumented in this encounter Care Teams Tier Truck Driver Relationship Specialty Start Date End Date Christina Martinez MD [address] [facility] [address] [place] [address] PCP - Janell GUERRERO 10/15/21 Christina Martinez MD [address] [facility] [address] [place] [address] PCP - General Family Medicine 02/22/23 Shawanda Meza, TIANA [address] [facility] [address] Clinical Advocate Family Medicine 11/21/24 01/02/25 Simin Lanier LPN [address] [facility] [address] [place] [address] 01/02/25 Tri Walsh NP [address] [facility] [address] [place] [address] Nurse Practitioner Neurology 01/14/25 documented as of this encounter
--- OUTSIDE RECORDS SUMMARY | 2025-07-10 12:48 | XMS_ITS | Encounter Summary ---
Author Organization [facility] Address [address] [place] [address] Care Team Providers Care Hog Operator Name Role Phone Christina Martinez MD Unavailable Christina Martinez MD Primary Care Provider Shawanda Meza RN Unavailable Simin Lanier LPN Unavailable Tri Walsh NP Unavailable [phone] Encounter Details Date Type Department Care Team (Late st Contact Info) Description 04/05/2023 Abstract [facility] [address] [facility] [address] [place] [address] Herve Quintana PA [address] [place] [address] Social History Tobacco Use Types Packs/Day Years Used Date Smoking Tobacco: Former Cigarettes Q uit: 12/04/2017 Smokeless Tobacco: Never Tobacco Cessation:Counseling Given: Not Answered Alcohol Use Standard Drinks/Week Comments Never 0 (1 standard drink = 0.6 oz pur e alcohol) Comments Unknown Sex and Gender Information Value Date Recorded Sex Assigned at Not on file Legal Sex Female 7:30 PM EDT Gender Identity Not on file Sexual Orientation Not on file documented as of this encounter Plan of Treatment Upcoming Encounters Date Type Department Care Team (Late Contact Info) Description 08/11/2025 1:30 PM EDT Office [facility] [address] [facility] [address] [place] [address] Christina Martinez MD [address] [facility] 110 [place] [address] 09/15/2025 10:00 AM EST Office Visit [facility] [address] [place] [address] Herve Quintana PA [address] [facility] [place] [address] documented as of this encounter Visit Diagnoses Not on filedocumented in this encounter Care Teams Hog Operator Relationship Specialty Start Date End Date Christina Martinez MD [address] [facility] [address] [place] [address] PCP - Janell GUERRERO 10/15/21 Christina Martinez MD [address] [facility] [address] [place] [address] PCP - General Family Medicine 02/22/23 Shawanda Meza, TIANA [address] [place] [address] Clinical Advocate Family Medicine 11/21/24 01/02/25 Simin Lanier LPN [address] [facility] [address] [place] [address] 01/02/25 Tri Walsh NP [address] [facility] [address] [place] [address] Nurse Practitioner Neurology 01/14/25 documented as of this encounter
--- OUTSIDE RECORDS SUMMARY | 2025-07-10 12:48 | XMS_ITS ---
Author Organization [facility] Address [address] [facility] [place] [address] Care Team Providers Care Engraver Jewelry Name Role Phone Christina Martinez MD Unavailable Christina Martinez MD Primary Care Provider [phone] Simin Lanier LPN Unavailable Tri Walsh NP Unavailable [phone] Chronic Care Management (CCM) Status:Enrolled (Active) Start date:03/01/2023 Enrollment date:03/01/2023 Overview 08/15/23, 3:21 PM - Angélicasunday, LAURO- Patient gives verbal consent to be enrolled in CCM Program and understands there could be a bill for this service. Case Team Name Relationship Phone Simin Lanier LPN(Responsible Staff) [phone] Continued Care and Services Coordination
--- OUTSIDE RECORDS SUMMARY | 2025-07-10 12:48 | XMS_ITS | Encounter Summary ---
Author Organization [facility] Address [address] [place] [address] Care Team Providers Care Seasonal Package Handler Name Role Phone Christina Martinez MD Unavailable Christina Martinez MD Primary Care Provider Shawanda Meza RN Unavailable Simin Lanier LPN Unavailable Tri Walsh NP Unavailable [phone] Encounter Details Date Type Department Care Team (Late st Contact Info) Description 06/17/2024 Abstract [facility] [place] [facility] 112 [facility] 110 [place] [phone] Christina Martinez MD 112 [facility] 110 [place], [place] [id number] Social History Tobacco Use Types Packs/Day Years [...] How often do you attend chur or yazidi services? More than 4 times per year 06/04/2023 Do you belong to any clubs o r organizations such as muslim groups, unions, fraternal or athletic groups, or [...] Recorded Patient Health Questionnaire-2 Score 1 01/10/2024 [facility] of Occupat ionga Health - Occupational Stress Questionnaire Answer Date [...] place to sleep or slept in a long term (including now)? No 06/04/2023 Comments Unknown Sex and Gender Information Value Date Recorded Sex Assigned at Not on file Legal Sex Female 7:30 PM EDT Gender Identity Not on file Sexual Orientation Not on file documented as of this encounter Plan of Treatment Upcoming Encounters Date Type Department Care Team (Late st Contact Info) Description 08/11/2025 1:30 PM EDT Office Visit [facility] [place] [facility] [address] [facility] 110 [place] [address] Christina Martinez MD [address] [facility] 110 [place] [address] 09/15/2025 10:00 AM EST Office Visit [facility] [address] [place] [address] Herve Quintana PA [address] [place] [address] documented as of this encounter Visit Diagnoses Not on filedocumented in this encounter Additional Health Concerns Assessment Noted Time PHQ-9 Depression Total Score: 9 01/10/20 24 10:00 AM EDT documented as of this encounter Care Teams Seasonal Package Handler Relationship Specialty Start Date End Date Christina Martinez MD [address] [facility] 110 [place] [address] PCP - Janell GUERRERO 10/15/21 Christina Martinez MD [address] [facility] 110 [place] [address] PCP - General Family Medicine 02/22/23 Shawanda Meza, TIANA [address] [facility] [place] [address] Clinical Advocate Family Medicine 11/21/24 01/02/25 Simin Lanier LPN [address] [facility] 110 [place] [address] 01/02/25 Tri Walsh NP [address] [facility] 110 [place] [address] Nurse Practitioner Neurology 01/14/25 documented as of this encounter
--- OUTSIDE RECORDS SUMMARY | 2025-07-10 12:48 | XMS_ITS | Encounter Summary ---
Author Organization [facility] Address [address] [place] [address] Care Team Providers Care Sales Trainer Name Role Phone Christina Martinez MD Unavailable Christina Martinez MD Primary Care Provider [phone] Shawanda Meza RN Unavailable Simin Lanier LPN Unavailable Tri Walsh NP Unavailable [phone] Encounter Details Date Type Department Care Team (Late st Contact Info) Description 06/11/2023 Abstract [facility] [place] [facility] 112 [facility] 110 [place] [address] Christina Martinez MD 112 [facility] 110 [place], [place] [id number] Social History Tobacco Use Types Packs/Day Years [...] How often do you attend chur or confucianism services? More than 4 times per year 06/04/2023 Do you belong to any clubs o r organizations such as faith groups, unions, fraternal or athletic groups, or [...] Recorded Patient Health Questionnaire-2 Score 0 04/20/2023 [facility] of Occupat ionhi Health - Occupational Stress Questionnaire Answer Date [...] place to sleep or slept in a skilled nursing (including now)? No 06/04/2023 Comments Unknown Sex and Gender Information Value Date Recorded Sex Assigned at Not on file Legal Sex Female 7:30 PM EDT Gender Identity Not on file Sexual Orientation Not on file documented as of this encounter Plan of Treatment Upcoming Encounters Date Type Department Care Team (Late st Contact Info) Description 08/11/2025 1:30 PM EDT Office Visit [facility] [address] [facility] 110 [place] [address] Christina Martinez MD [address] [facility] 110 [place] [address] 09/15/2025 10:00 AM EST Office Visit [facility] [address] [place] [address] Herve uQintana PA [address] [place] [address] documented as of this encounter Visit Diagnoses Not on filedocumented in this encounter Care Teams Sales Trainer Relationship Specialty Start Date End Date Christina Martinez MD [address] [facility] 110 [place] [address] PCP - Janell GUERRERO 10/15/21 Christina Martinez MD [address] [facility] 110 [place] [address] PCP - General Family Medicine 02/22/23 Shawanda Meza, TIANA [address] [place] [address] Clinical Advocate Family Medicine 11/21/24 01/02/25 Simin Lanier LPN [address] [facility] 110 [place] [address] 01/02/25 Tri Walsh NP [address] [facility] 110 [place] [address] Nurse Practitioner Neurology 01/14/25 documented as of this encounter
--- OUTSIDE RECORDS SUMMARY | 2025-07-10 12:48 | XMS_ITS | Encounter Summary ---
Author Organization [facility] Address [address] [place] [address] Care Team Providers Care Biological Technician Name Role Phone Christina Martinez MD Unavailable Christina Martinez MD Primary Care Provider [phone] Shawanda Meza RN Unavailable Simin Lanier LPN Unavailable Tri Walsh NP Unavailable [phone] Encounter Details Date Type Department Care Team (Late st Contact Info) Description 08/21/2023 Abstract [facility] [place] [facility] 112 [facility] 110 [place] [address] Christina Martinez MD 112 [facility] 110 [place] [address] Social History Tobacco Use Types Packs/Day Years [...] How often do you attend chur or tenriism services? More than 4 times per year [...] Recorded Patient Health Questionnaire-2 Score 0 04/20/2023 [facility] of Occupat ionla Health - Occupational Stress Questionnaire Answer Date [...] place to sleep or slept in a fdc (including now)? No 06/04/2023 Comments Unknown Sex and Gender Information Value Date Recorded Sex Assigned at Not on file Legal Sex Female 7:30 PM EDT Gender Identity Not on file Sexual Orientation Not on file documented as of this encounter Plan of Treatment Upcoming Encounters Date Type Department Care Team (Late st Contact Info) Description 08/11/2025 1:30 PM EDT Office Visit [facility] [address] [facility] 110 [place] [address] Christina Martinez MD [address] [facility] 110 [place] [address] 09/15/2025 10:00 AM EST Office Visit [facility] [address] [place] [address] Herve Quintana PA [address] [place] [address] documented as of this encounter Visit Diagnoses Not on filedocumented in this encounter Care Teams Biological Technician Relationship Specialty Start Date End Date Christina Martinez MD [address] [facility] 110 [place] [address] PCP - Janell GUERRERO 10/15/21 Christina Martinez MD [address] [facility] 110 [place] [address] PCP - General Family Medicine 02/22/23 Shawanda Meza, TIANA [address] [place] [address] Clinical Advocate Family Medicine 11/21/24 01/02/25 Simin Lanier LPN [address] [facility] 110 [place] [address] 01/02/25 Tri Walsh NP [address] [facility] 110 [place] [address] Nurse Practitioner Neurology 01/14/25 documented as of this encounter
--- OUTSIDE RECORDS SUMMARY | 2025-07-10 12:48 | XMS_ITS | Encounter Summary ---
Author Organization [facility] Address [address] [place] [address] Care Team Providers Care Tv Host Name Role Phone Christina Martinez MD Unavailable Christina Martinez MD Primary Care Provider [phone] Shawanda Meza RN Unavailable [phone] Simin Lanier LPN Unavailable Tri Walsh NP Unavailable [phone] Encounter Details Date Type Department Care Team (Late st Contact Info) Description 08/15/2023 Abstract [facility] [place] [facility] 112 [facility] 110 [place] [address] Christina Martinez MD 112 [facility] 110 [place] [address] Social History Tobacco Use Types Packs/Day Years [...] How often do you attend chur or oriental orthodox services? More than 4 times per year 06/04/2023 Do you belong to any clubs o r organizations such as nondenominational groups, unions, fraternal or athletic groups, or [...] Recorded Patient Health Questionnaire-2 Score 0 04/20/2023 [facility] of Occupat ionmo Health - Occupational Stress Questionnaire Answer Date [...] 1:30 PM EDT Office Visit R[facility] [address] [facility] 110 [place] [address] Christina Martinez MD [address] [facility] 110 [place] [address] 09/15/2025 10:00 AM EST Office Visit [facility] [address] [place] [address] Herve Quintana PA [address] [place] [address] documented as of this encounter Visit Diagnoses Not on filedocumented in this encounter Care Teams Tv Host Relationship Specialty Start Date End Date Christina Martinez MD [address] [facility] 110 [place] [address] PCP - Janell GUERRERO 10/15/21 Christina Martinez MD [address] [facility] 110 [place] [address] PCP - General Family Medicine 02/22/23 Shawanda Meza, TIANA [address] [place] [address] Clinical Advocate Family Medicine 11/21/24 01/02/25 Simin Lanier LPN [address] [facility] 110 [place] [address] 01/02/25 Tri Walsh NP [address] [facility] 110 [place] [address] Nurse Practitioner Neurology 01/14/25 documented as of this encounter
--- OUTSIDE RECORDS SUMMARY | 2025-07-10 12:48 | XMS_ITS | Encounter Summary ---
Author Organization [facility] Address [address] [place] [address] Care Team Providers Care Facing Cutting Machine Operator Name Role Phone Christina Martinez MD Unavailable Christina Martinez MD Primary Care Provider [phone] Shawanda Meza RN Unavailable Simin Lanier LPN Unavailable Tri Walsh NP Unavailable [phone] Encounter Details Date Type Department Care Team (Late st Contact Info) Description 04/16/2023 Abstract [facility] [place] 112 [facility] 110 [place] [address] Christina Martinez MD 112 [facility] 110 [place] [address] Social History Tobacco Use Types Packs/Day Years [...] Office Visit R[facility] [place] [address] [facility] 110 [place] [address] Christina Martinez MD [address] [facility] 110 [place] [address] 09/15/2025 10:00 AM EST Office Visit [facility] [address] [place] [address] Herve Quintana PA [address] [place] [address] documented as of this encounter Visit Diagnoses Not on filedocumented in this encounter Care Teams Facing Cutting Machine Operator Relationship Specialty Start Date End Date Christina Martinez MD [address] [facility] 110 [place] [address] PCP - Janell GUERRERO 10/15/21 Christina Martinez MD [address] [facility] 110 [place] [address] PCP - General Family Medicine 02/22/23 Shawanda Meza, TIANA [address] [facility] [place] [address] Clinical Advocate Family Medicine 11/21/24 01/02/25 Simin Lanier LPN [address] [facility] 110 [place] [address] 01/02/25 Tri Walsh NP [address] [facility] 110 [place] [address] Nurse Practitioner Neurology 01/14/25 documented as of this encounter
--- OUTSIDE RECORDS SUMMARY | 2025-07-10 12:48 | XMS_ITS | Encounter Summary ---
Author Organization [facility] Address [address] [place] [address] Care Team Providers Care Pony Trimmer Name Role Phone Christina Martinez MD Unavailable Christina Martinez MD Primary Care Provider [phone] Shawanda Meza RN Unavailable [phone] Simin Lanier LPN Unavailable Tri Walsh NP Unavailable [phone] Encounter Details Date Type Department Care Team (Late st Contact Info) Description 07/16/2023 Orders Only [facility] [place] [facility] [address] [facility] 110 [place] [address] A, Unknown Practice [address] [phone] Social History Tobacco Use Types Packs/Day Years [...] How often do you attend chur or protestant services? More than 4 times per year 06/04/2023 Do you belong to any clubs o r organizations such as jewish groups, unions, fraternal or athletic groups, or [...] Recorded Patient Health Questionnaire-2 Score 0 04/20/2023 [facility] of Occupat ional Health - Occupational Stress [...] 08/11/2025 1:30 PM EDT Office Visit RUT [place] [address] [facility] 110 [place] [address] Christina Martinez MD [address] [facility] 110 [place] [address] 09/15/2025 10:00 AM EST Office Visit [facility] [address] [place] [address] Herve Quintana PA [address] [place] [address] documented as of this encounter Procedures Procedure Name Priority Date/Time Associated Diagnosis Comments XR FOOT 3+ VIEWS RIGHT Routine 07/13/2023 2:11 PM EDT documented in this encounter Results * XR foot 3+ views right (07/13/2023 2:11 PM EDT) Anatomical Region Laterality Modality Lower Extremities, Foot Right Radiogra phic Imaging us Unknown Practice A IMG XR PROCEDURES Final Resul t documented in this encounter Visit Diagnoses Not on filedocumented in this encounter Care Teams Pony Trimmer Relationship Specialty Start Date End Date Christina Martinez MD 112 [facility] 110 [place] [address] PCP - Janell GUERRERO 10/15/21 Christina Martinez MD [address] [facility] 110 [place] [address] PCP - General Family Medicine 02/22/23 Shawanda Meza, TIANA [address] [place] [address] Clinical Advocate Family Medicine 11/21/24 01/02/25 Simin Lanier LPN [address] [facility] 110 [place] [address] 01/02/25 Tri Walsh NP [address] [facility] 110 [place] [address] Nurse Practitioner Neurology 01/14/25 documented as of this encounter
--- OUTSIDE RECORDS SUMMARY | 2025-07-10 12:48 | XMS_ITS | Encounter Summary ---
Author Organization [facility] Address [address] [place] [address] Care Team Providers Care Sock Boarder Name Role Phone Christina Martinez MD Unavailable Christina Martinez MD Primary Care Provider Shawanda Meza RN Unavailable [phone] Simin Lanier LPN Unavailable Tri Walsh NP Unavailable [phone] Encounter Details Date Type Department Care Team (Late st Contact Info) Description 08/22/2023 Abstract [facility] [place] [facility] 112 [facility] 110 [place] [address] Christina Martinez MD 112 [facility] 110 [place] [address] Social History Tobacco Use Types Packs/Day Years [...] How often do you attend chur or pentecostal services? More than 4 times per year 06/04/2023 Do you belong to any clubs o r organizations such as confucianism groups, unions, fraternal or athletic groups, or [...] Recorded Patient Health Questionnaire-2 Score 0 04/20/2023 [facility] of Occupat ionid Health - Occupational Stress Questionnaire Answer Date [...] place to sleep or slept in a longterm (including now)? No 06/04/2023 Comments Unknown Sex [...] Office Visit [facility] [address] [facility] 110 [place] [address] Christina Martinez MD [address] [facility] 110 [place] [address] 09/15/2025 10:00 AM EST Office Visit [facility] [address] [place] [address] Herve Quintana PA [address] [place] [address] documented as of this encounter Visit Diagnoses Not on filedocumented in this encounter Care Teams Sock Boarder Relationship Specialty Start Date End Date Christina Martinez MD [address] [facility] 110 [place] [address] PCP - Janell GUERRERO 10/15/21 Christina Martinez MD [address] [facility] 110 [place] [address] PCP - General Family Medicine 02/22/23 Shawanda Meza, TIANA [address] [place] [address] Clinical Advocate Family Medicine 11/21/24 01/02/25 Simin Lanier LPN [address] [facility] 110 [place] [address] 01/02/25 Tri Walsh NP [address] [facility] 110 [place] [address] Nurse Practitioner Neurology 01/14/25 documented as of this encounter
--- OUTSIDE RECORDS SUMMARY | 2025-07-10 12:48 | XMS_ITS | Encounter Summary ---
Author Organization [facility] Address [address] [place] [address] Care Team Providers Care Retail Interior Designer Name Role Phone Christina Kasper MD Unavailable Christina Kasper MD Primary Care Provider [phone] Shawanda Meza RN Unavailable Simin Lanier LPN Unavailable Tri Walsh NP Unavailable [phone] Encounter Details Date Type Department Care Team (Late st Contact Info) Description 07/13/2023 Clinisync Result Encounter N[facility] External Department Unsolicited Josselyn Monte NP [address] [email or web address] 110 [place] [address] Social History Tobacco Use Types Packs/Day Years [...] How often do you attend chur or judaism services? More than 4 times per year 06/04/2023 Do you belong to any clubs o r organizations such as moravian groups, unions, fraternal or athletic groups, or [...] Recorded Patient Health Questionnaire-2 Score 0 04/20/2023 [facility] of Occupat ional Health - Occupational [...] place to sleep or slept in a penitentiary (including now)? No 06/04/2023 Comments Unknown Sex and Gender Information Value Date Recorded Sex Assigned at Not on file Legal Sex Female 7:30 PM EDT Gender Identity Not on file Sexual Orientation Not on file documented as of this encounter Plan of Treatment Upcoming Encounters Date Type Department Care Team (Late st Contact Info) Description 08/11/2025 1:30 PM EDT [facility] 112 [facility] 110 [place] [address] Christina Kasper MD 112 [facility] 110 [place] [address] 09/15/2025 10:00 AM EST Office Visit [facility] [address] [place] [address] Herve Quintana PA [address] [place] [address] documented as of this encounter Procedures Procedure Name Priority Date/Time Associated Diagnosis Comments XR FOOT RT MIN 3V 07/13/2023 9:2 3 PM EDT documented in this encounter Results * XR FOOT RT MIN 3V (07/13/2023 9:23 PM EDT) Anatomical Region Laterality Modality Other 07/13/2023 9:23 PM EDT Narrative 07/13/2023 9:23 [place] [address] XRay Report Signed Patient: MARYJANE TRIPP MR#: [id number] : 1960 Acct:[id number] Age/Sex: 63 / F ADM Date: 07/13/23 Loc: EJ Attending Dr: JOSSELYN MONTE Ordering Physician: JOSSELYN MONTE Date of Service: 07/13/23 Procedure(s): XR foot RT min 3V Accession Number(s): [id number] cc: CHRISTINA KASPER [place] [address] Patient Name: MARYJANE TRIPP MRN: [id number] date: 1960 Sex: F Assigned Patient Location: [facility] Current Patient Location: [facility] Accession/Order Number: [id number] Exam Date: 07/13/2023 10:30 Report Date: 07/13/2023 21:23 At the request of: JOSSELYN MONTE Procedure: XR foot RT min 3V Exam: Radiographs: XR ankle RT min 3V, XR foot RT min 3V Reason for exam: Acute ankle pain M79.871 Comparison: None XR/XR foot RT min 3V IMPRESSION: Mild right ankle soft tissue swelling. Degenerative changes throughout the right foot and ankle.. Old healed fifth metatarsal fracture. Right foot and ankle radiographs are otherwise unremarkable. Electronically authenticated by: LOLIS ROGERS Date: 07/13/2023 21:23 Dictated By: Lolis Rogers M.D. Signed By: 07/13/232125 DD/ 22 TD/TT: Opto Mechanical Technician: Procedure Note Radiology, Radiologist, MD - 07/13/[address] [address] XRay Report Signed Patient: MARYJANE TRIPP AMR#: [id number] : 1960cct:[id number] Age/Sex: 63 / FADM Date: 07/13/23 Loc: RAD Attending Dr: JOSSELYN MONTE Ordering Physician: JOSSELYN MONTE Date of Service: 07/13/23 Procedure(s): XR foot RT min 3V Accession Number(s): [id number] cc: CHRISTINA KASPER ; JOSSELYN MONTE The [address] [address] Patient Name: MARYJANE TRIPP MRN: [id number] date: 1960 Sex: F Assigned Patient Location: [facility] Current Patient Location: [facility] Accession/Order Number: [id number] Exam Date: 07/13/2023 10:30 Report Date: 07/13/2023 21:23 At the request of: JOSSELYN MONTE Procedure: XR foot RT min 3V Exam: Radiographs: XR ankle RT min 3V, XR foot RT min 3V Reason for exam: Acute ankle pain M79.871 Comparison: None XR/XR foot RT min 3V IMPRESSION: Mild right ankle soft tissue swelling. Degenerative changes throughout the right foot and ankle.. Old healed fifth metatarsal fracture. Right foot and ankle radiographs are otherwise unremarkable. Electronically authenticated by: LOLIS ROGERS Date: 07/13/2023 21:23 Dictated By: Lolis Rogers M.D. Signed By:07/13/232125 DD/ 22 TD/TT: Opto Mechanical Technician: us Josselyn Monte LIBRARY SPECIALIST [facility] Final Resu lt documented in this encounter Visit Diagnoses Not on filedocumented in this encounter Care Teams Retail Interior Designer Relationship Specialty Start Date End Date Christina Kasper MD [address] [email or web address] 110 [place] [address] PCP - Janell GUERRERO 10/15/21 Christina Kasper MD [address] [address] PCP - General Family Medicine 02/22/23 Shawanda Meza, RN [address] [place] [address] Clinical Advocate Family Medicine 11/21/24 01/02/25 Simin Lanier LPN [address] [address] 01/02/25 Tri Walsh NP [address] [address] Nurse Practitioner Neurology 01/14/25 documented as of this encounter
--- OUTSIDE RECORDS SUMMARY | 2025-07-10 12:48 | XMS_ITS | Encounter Summary ---
Author Organization [facility] Address [address] [place] [address] Care Team Providers Care Manager Commission Name Role Phone Christina Martinez MD Unavailable Christina Martinez MD Primary Care Provider Shawanda Meza RN Unavailable Simin Lanier LPN Unavailable Tri Walsh NP Unavailable [phone] Encounter Details Date Type Department Care Team (Late st Contact Info) Description 07/16/2024 Abstract [facility] [place] [facility] 112 [facility] 110 [place] [phone] Christina Martinez MD 112 [facility] 110 [place] [address] Social History Tobacco Use Types Packs/Day Years [...] How often do you attend chur or sikhism services? 1 to 4 times per year 07/16/2024 Do you belong to any clubs o r organizations such as methodist groups, unions, fraternal or athletic groups, or [...] Recorded Patient Health Questionnaire-2 Score 1 01/10/2024 [facility] - Occupational [...] 1:30 PM EDT [facility] [address] [facility] 110 [place] [address] Christina Martinez MD [address] [facility] 110 [place] [address] 09/15/2025 10:00 AM EST Office Visit [facility] [place] [address] Herve Quintana, YUNIER [address] [place] [address] documented as of this encounter Visit Diagnoses Not on filedocumented in this encounter Additional Health Concerns Assessment Noted Time PHQ-9 Depression Total Score: 9 01/10/20 24 10:00 AM EDT documented as of this encounter Care Teams Manager Commission Relationship Specialty Start Date End Date Christina Martinez MD [address] [facility] 110 [place] [address] PCP - Janell GUERRERO 10/15/21 Christina Martinez MD [address] [facility] 110 [place] [address] PCP - General Family Medicine 02/22/23 Shawanda Meza, TIANA [address] [place], [place] [phone] Clinical Advocate Family Medicine 11/21/24 01/02/25 Simin Lanier LPN [address] [facility] 110 [place] [address] 01/02/25 Tri Walsh NP [address] [facility] 110 [place] [address] Nurse Practitioner Neurology 01/14/25 documented as of this encounter
--- OUTSIDE RECORDS SUMMARY | 2025-07-10 12:48 | XMS_ITS | Encounter Summary ---
Author Organization [facility] Address [address] [place] [address] Care Team Providers Care Analyzer Sales Name Role Phone Christina Martinez MD Unavailable Christina Martinez MD Primary Care Provider Shawanda Meza RN Unavailable Simin Lanier LPN Unavailable Tri Walsh NP Unavailable [phone] Encounter Details Date Type Department Care Team (Late st Contact Info) Description 05/14/2023 Abstract [facility] 112 [facility] 110 [place] [phone] Christina Martinez MD 112 [facility] 110 [place] [address] Social History Tobacco Use Types Packs/Day Years [...] Office Visit [facility] [place] [address] [facility] 110 [place] [address] Christina Martinez MD [address] [facility] 110 [place] [address] 09/15/2025 10:00 AM EST Office Visit [facility] [address] [place] [address] Herve Quintana PA [address] [place] [address] documented as of this encounter Visit Diagnoses Not on filedocumented in this encounter Care Teams Analyzer Sales Relationship Specialty Start Date End Date Christina Martinez MD [address] [facility] 110 [place] [address] PCP - Janell GUERRERO 10/15/21 Christina Martinez MD [address] [facility] 110 [place] [address] PCP - General Family Medicine 02/22/23 Shawanda Meza, TIANA [address] [facility] [place] [address] Clinical Advocate Family Medicine 11/21/24 01/02/25 Simin Lanier LPN [address] [facility] 110 [place] [address] 01/02/25 Tri Walsh NP [address] [facility] 110 [place] [address] Nurse Practitioner Neurology 01/14/25 documented as of this encounter
--- OUTSIDE RECORDS SUMMARY | 2025-07-10 12:48 | XMS_ITS | Encounter Summary ---
Author Organization [facility] Address [address] [place] [address] Care Team Providers Care Learning Services Coordinator Name Role Phone Christina Martinez MD Unavailable Christina Martinez MD Primary Care Provider [phone] Shawanda Meza RN Unavailable Simin Lanier LPN Unavailable Tri Walsh NP Unavailable [phone] Encounter Details Date Type Department Care Team (Late st Contact Info) Description 07/25/2023 Abstract [facility] [place] [facility] 112 [facility] 110 [place] [phone] Christina Martinez MD 112 [facility] 110 [place] [address] Social History Tobacco Use Types Packs/Day Years [...] How often do you attend chur or episcopal services? More than 4 times per year 06/04/2023 Do you belong to any clubs o r organizations such as gnosticist groups, unions, fraternal or athletic groups, or [...] Recorded Patient Health Questionnaire-2 Score 0 04/20/2023 [facility] Occupat ionpr Health - Occupational Stress Questionnaire Answer Date [...] place to sleep or slept in a intermediate (including now)? No 06/04/2023 Comments Unknown Sex [...] PM EDT Office Visit [facility] [place] [facility] [address] [facility] 110 [place] [address] Christina Martinez MD [address] [facility] 110 [place] [address] 09/15/2025 10:00 AM EST Office Visit [facility] [address] [place] [address] Herve Quintana PA [address] [place] [address] documented as of this encounter Visit Diagnoses Not on filedocumented in this encounter Care Teams Learning Services Coordinator Relationship Specialty Start Date End Date Christina Martinez MD [address] [facility] 110 [place] [address] PCP - Janell GUERRERO 10/15/21 Christina Martinez MD [address] [facility] 110 [place] [address] PCP - General Family Medicine 02/22/23 Shawanda Meza, TIANA [address] [place] [address] Clinical Advocate Family Medicine 11/21/24 01/02/25 Simin Lanier LPN [address] [facility] 110 [place] [address] 01/02/25 Tri Walsh NP [address] [facility] 110 [place] [address] Nurse Practitioner Neurology 01/14/25 documented as of this encounter
--- OUTSIDE RECORDS SUMMARY | 2025-07-10 12:48 | XMS_ITS | Encounter Summary ---
Author Organization [facility] Address [address] [place] [address] Care Team Providers Care Instructional Systems Designer Name Role Phone Christina Martinez MD Unavailable Christina Martinez MD Primary Care Provider [phone] Shawanda Meza RN Unavailable Simin Lanier LPN Unavailable Tri Walsh NP Unavailable [phone] Encounter Details Date Type Department Care Team (Late st Contact Info) Description 08/21/2023 Abstract [facility] [place] [facility] 112 [facility] 110 [place] [phone] Christina Martinez MD 112 [facility] 110 [place] [address] Social History Tobacco Use Types Packs/Day Years [...] How often do you attend chur or yazdanism services? More than 4 times per year 06/04/2023 Do you belong to any clubs o r organizations such as mosque groups, unions, fraternal or athletic groups, or [...] Recorded Patient Health Questionnaire-2 Score 0 04/20/2023 [facility] of Occupat ionwv Health - Occupational Stress Questionnaire Answer Date [...] EDT Office Visit [facility] [address] [facility] [address] [place] [address] Christina Martinez MD [address] [facility] 110 [place] [address] 09/15/2025 10:00 AM EST Office Visit [facility] [address] [place] [address] Herve Quintana PA [address] [place] [address] documented as of this encounter Visit Diagnoses Not on filedocumented in this encounter Care Teams Instructional Systems Designer Relationship Specialty Start Date End Date Christina Martinez MD [address] [facility] 110 [place] [address] PCP - Janell GUERRERO 10/15/21 Christina Martinez MD [address] [facility] 110 [place] [address] PCP - General Family Medicine 02/22/23 Shawanda Meza, TIANA [address] [place] [address] Clinical Advocate Family Medicine 11/21/24 01/02/25 Simin Lanier LPN [address] [facility] 110 [place] [address] 01/02/25 Tri Walsh NP [address] [facility] 110 [place] [address] Nurse Practitioner Neurology 01/14/25 documented as of this encounter
--- OUTSIDE RECORDS SUMMARY | 2025-07-10 12:48 | XMS_ITS | Encounter Summary ---
Author Organization [facility] Address [address] [place] [address] Care Team Providers Care Board Design Engineer Name Role Phone Christina Martinez MD Unavailable Christina Martinez MD Primary Care Provider Shawanda Meza RN Unavailable [phone] Simin Lanier LPN Unavailable Tri Walsh NP Unavailable [phone] Encounter Details Date Type Department Care Team (Late st Contact Info) Description 05/31/2023 Abstract [facility] [place] [facility] 112 [facility] 110 [place] [phone] Christina Martinez MD 112 [facility] 110 [place] [address] Social History Tobacco Use Types Packs/Day Years [...] How often do you attend chur or sabianist services? More than 4 times per year [...] 0 04/20/2023 [facility] of Occupat ionut Health - Occupational Stress Questionnaire Answer Date [...] place to sleep or slept in a fpc (including now)? No 06/04/2023 Comments Unknown Sex and Gender Information Value Date Recorded Sex Assigned at Not on file Legal Sex Female 7:30 PM EDT Gender Identity Not on file Sexual Orientation Not on file documented as of this encounter Plan of Treatment Upcoming Encounters Date Type Department Care Team (Late st Contact Info) Description 08/11/2025 1:30 PM EDT Office Visit [facility] [place] [facility] [address] [facility] 110 [place] [address] Christina Martinez MD [address] [facility] 110 [place] [address] 09/15/2025 10:00 AM EST Office Visit [facility] [address] [place] [address] Herve Quintana PA [address] [place] [address] documented as of this encounter Visit Diagnoses Not on filedocumented in this encounter Care Teams Board Design Engineer Relationship Specialty Start Date End Date Christina Martinez MD [address] [facility] 110 [place] [address] PCP - Janell GUERRERO 10/15/21 Christina Martinez MD [address] [facility] 110 [place] [address] PCP - General Family Medicine 02/22/23 Shawanda Meza, TIANA [address] [place] [address] Clinical Advocate Family Medicine 11/21/24 01/02/25 Simin Lanier LPN [address] [facility] 110 [place] [address] 01/02/25 Tri Walsh NP [address] [facility] 110 [place] [address] Nurse Practitioner Neurology 01/14/25 documented as of this encounter
--- OUTSIDE RECORDS SUMMARY | 2025-07-10 12:48 | XMS_ITS | Encounter Summary ---
Author Organization [facility] Address [address] [place] [address] Care Team Providers Care Plisse Machine Operator Name Role Phone Christina Martinez MD Unavailable Christina Martinez MD Primary Care Provider Shawanda Meza RN Unavailable Simin Lanier LPN Unavailable Tri Walsh NP Unavailable [phone] Encounter Details Date Type Department Care Team (Late st Contact Info) Description 06/02/2024 Abstract [facility] [place] [facility] 112 [facility] 110 [place] [address] Christina Martinez MD 112 [facility] 110 [place], [place] [address] Social History Tobacco Use Types Packs/Day Years [...] How often do you attend chur or congregational services? More than 4 times per year 06/04/2023 Do you belong to any clubs o r organizations such as roman catholic groups, unions, fraternal or athletic groups, or [...] 1 01/10/2024 [facility] of Occupat ionia Health - Occupational Stress Questionnaire Answer Date [...] place to sleep or slept in a detention (including now)? No 06/04/2023 Comments Unknown Sex [...] [facility] [place] [facility] [address] [facility] 110 [place] [address] Christina Martinez MD [address] [facility] 110 [place] [address] 09/15/2025 10:00 AM EST Office Visit [facility] [address] [place] [address] Herve Quintana PA [address] [place] [address] documented as of this encounter Visit Diagnoses Not on filedocumented in this encounter Additional Health Concerns Assessment Noted Time PHQ-9 Depression Total Score: 9 01/10/20 24 10:00 AM EDT documented as of this encounter Care Teams Plisse Machine Operator Relationship Specialty Start Date End Date Christina Martinez MD [address] [facility] 110 [place] [address] PCP - Janell GUERRERO 10/15/21 Christina Martinez MD [address] [facility] 110 [place] [address] PCP - General Family Medicine 02/22/23 Shawanda Meza, TIANA [address] [facility] [place] [address] Clinical Advocate Family Medicine 11/21/24 01/02/25 Simin Lanier LPN [address] [facility] 110 [place] [address] 01/02/25 Tri Walsh NP [address] [facility] 110 [place] [address] Nurse Practitioner Neurology 01/14/25 documented as of this encounter
--- OUTSIDE RECORDS SUMMARY | 2025-07-10 12:48 | XMS_ITS | Encounter Summary ---
Author Organization [facility] Address [address] [place] [address] Care Team Providers Care After School Program Coordinator Name Role Phone Christina Kasper MD Unavailable Christina Kasper MD Primary Care Provider [phone] Shawanda Meza RN Unavailable [phone] Simin Lanier LPN Unavailable Tri Walsh NP Unavailable [phone] Encounter Details Date Type Department Care Team (Late st Contact Info) Description 07/13/2023 Clinisync Result Encounter [facility] External Department Unsolicited Josselyn Monte NP [address] [facility] 110 [place] [address] Social History Tobacco Use Types Packs/Day Years [...] How often do you attend chur or druze services? More than 4 times per year 06/04/2023 Do you belong to any clubs o r organizations such as caodaism groups, unions, fraternal or athletic groups, or [...] Recorded Patient Health Questionnaire-2 Score 0 04/20/2023 [facility] of Occupat ional Health - [...] 1:30 PM EDT Office Visit [facility] 112 [facility] 110 [place] [address] Christina Kasper MD 112 [facility] 110 [place] [address] 09/15/2025 10:00 AM EST Office Visit [facility] [address] [place] [address] Herve Quintana PA [address] [place] [address] documented as of this encounter Procedures Procedure Name Priority Date/Time Associated Diagnosis Comments XR ANKLE RT MIN 3V 07/13/2023 9: 23 PM EDT documented in this encounter Results * XR ANKLE RT MIN 3V (07/13/2023 9:23 PM EDT) Anatomical Region Laterality Modality Other 07/13/2023 9:23 PM EDT Narrative 07/13/2023 9:23 [place] [address] XRay Report Signed Patient: MARYJANE TRIPP MR#: [id number] : 1960 Acct:[id number] Age/Sex: 63 / F ADM Date: 07/13/23 Loc: RAD Attending Dr: JOSSELYN MONTE Ordering Physician: JOSSELYN MONTE Date of Service: 07/13/23 Procedure(s): XR ankle RT min 3V Accession Number(s): [id number] cc: CHRISTINA KASPER ; JOSSELYN MONTE [place] [address] Patient Name: MARYJANE TRIPP MRN: [id number] date: 1960 Sex: F Assigned Patient Location: [facility] Current Patient Location: [facility] Accession/Order Number: [id number] Exam Date: 07/13/2023 10:30 Report Date: 07/13/2023 21:23 At the request of: JOSSELYN MONTE Procedure: XR ankle RT min 3V Exam: Radiographs: XR ankle RT min 3V, XR foot RT min 3V Reason for exam: Acute ankle pain M79.871 Comparison: None XR/XR ankle RT min 3V IMPRESSION: Mild right ankle soft tissue swelling. Degenerative changes throughout the right foot and ankle.. Old healed fifth metatarsal fracture. Right foot and ankle radiographs are otherwise unremarkable. Electronically authenticated by: LOLIS ROGERS Date: 07/13/2023 21:23 Dictated By: Lolis Rogers M.D. Signed By: 07/13/232125 DD/ 22 TD/TT: Home Hospice Rn: Procedure Note Radiology, Radiologist, MD - 07/13/[address] [address] XRay Report Signed Patient: MARYJANE TRIPP AMR#: [id number] : 1960cct:[id number] Age/Sex: 63 / FADM Date: 07/13/23 Loc: RAD Attending Dr: JOSSELYN MONTE Ordering Physician: JOSSELYN MONTE Date of Service: 07/13/23 Procedure(s): XR ankle RT min 3V Accession Number(s): [id number] cc: CHRISTINA KASPER SHERRI The [address] [address] Patient Name: MARYJANE TRIPP MRN: [id number] date: 1960 Sex: F Assigned Patient Location: [facility] Current Patient Location: [facility] Accession/Order Number: [id number] Exam Date: 07/13/2023 10:30 Report Date: 07/13/2023 21:23 At the request of: JOSSELYN MONTE Procedure: XR ankle RT min 3V Exam: Radiographs: XR ankle RT min 3V, XR foot RT min 3V Reason for exam: Acute ankle pain M79.871 Comparison: None XR/XR ankle RT min 3V IMPRESSION: Mild right ankle soft tissue swelling. Degenerative changes throughout the right foot and ankle.. Old healed fifth metatarsal fracture. Right foot and ankle radiographs are otherwise unremarkable. Electronically authenticated by: LOLIS ROGERS Date: 07/13/2023 21:23 Dictated By: Lolis Rogers M.D. Signed By:07/13/232125 DD/ 22 TD/TT: Home Hospice Rn: us Josselyn Monte [facility] Final Resu lt documented in this encounter Visit Diagnoses Not on filedocumented in this encounter Care Teams After School Program Coordinator Relationship Specialty Start Date End Date Christina Kasper MD 112 [facility] 110 [place] [address] PCP - Janell GUERRERO 10/15/21 Christina Kasper MD [address] [address] PCP - General Family Medicine 02/22/23 Shawanda Meza, RN [address] [place] [address] Clinical Advocate Family Medicine 11/21/24 01/02/25 Simin Lanier LPN [address] [address] 01/02/25 Tri Walsh NP [address] [address] Nurse Practitioner Neurology 01/14/25 documented as of this encounter
--- NOTE | 2025-07-10 12:49 | MM_ITS ---
Patient Name: SAIRA TAVERAS MR#: [id number] : 1960 Exam Date: 07/10/2025 Ordering Doctor: DR VALERI KASPER M.D. RADIOLOGY REPORT PROCEDURE: MM TOMOSYNTHESIS SCREENING BI COMPARISON: MM TOMOSYNTHESIS SCREENING BI, 07/08/2024. MM TOMOSYNTHESIS SCREENING BI, 07/04/2023. MG MAMM SCREEN 3D DI CAD, 07/03/2022. MG MAMM DI SCRN W CAD DIG, 02/03/2014. INDICATIONS: Screening Calculator Name NCI Breast Cancer Risk Assessment Tool 5 Year Breast Cancer Risk 1.60% Lifetime Breast Cancer Risk 5.40% Personal Breast Cancer No Personal Ovarian Cancer No Treatments None Family Cancers Mother with leukemia cancer at age 27. LOCATION: [facility] BREAST COMPOSITION: There are scattered areas of fibroglandular density. FINDINGS: RIGHT BREAST: No significant suspicious finding. LEFT BREAST: No significant suspicious finding. DIAGNOSTIC CATEGORY 2--BENIGN FINDING. NO CHANGE FROM COMPARISON. RECOMMENDATIONS: ROUTINE MAMMOGRAM AND CLINICAL EVALUATION IN 12 MONTHS. Dictated by: Grabiel Rivas MD on 07/10/2025 at 17:35 Approved by: Grabiel Rivas MD on 07/10/2025 at 17:38
--- OUTSIDE RECORDS SUMMARY | 2025-07-10 12:49 | XMS_ITS | Encounter Summary ---
Author Organization [facility] Address [address] [place] [place] [address] Care Team Providers Care Apprentice Photographer Name Role Phone Christina Kasper MD Unavailable Christina Kasper MD Primary Care Provider [phone] Shawanda Meza RN Unavailable Simin Lanier LPN Unavailable Tri Walsh NP Unavailable [phone] Encounter Details Date Type Department Care Team (Late st Contact Info) Description 07/08/2024 Clinisync Result Encounter [facility] External Department Unsolicited Liliana Sinha, VIDEO NETWORK ENGINEER [address] [facility] [address] [place] [address] Social History Tobacco Use Types Packs/Day Years [...] How often do you attend chur or rastafari services? More than 4 times per year 06/04/2023 Do you belong to any clubs o r organizations such as congregational groups, unions, fraternal or athletic groups, or [...] Recorded Patient Health Questionnaire-2 Score 1 01/10/2024 [facility] of Occupat ional Health - Occupational Stress [...] 1:30 PM EDT Office Visit [facility] [address] [facility] [address] [place] [address] Christina Kasper MD 112 [facility] [address] [place] [address] 09/15/2025 10:00 AM EST Office Visit [facility] [address] [place] [address] Herve Quintana PA [address] [place] [address] documented as of this encounter Procedures Procedure Name Priority Date/Time Associated Diagnosis Comments XR DEXA AXIAL SKELETON 07/08/2024 1:23 PM EDT documented in this encounter Results * XR DEXA AXIAL SKELETON (07/08/2024 1:23 PM EDT) Anatomical Region Laterality Modality Other 07/08/2024 1:23 PM EDT Narrative 07/08/2024 1:25 [place] [address] XRay Report Signed Patient: MARYJANE TRIPP MR#: [id number] : 1960 Acct:[id number] Age/Sex: 64 / F ADM Date: 07/08/24 Loc: MAMMO Attending Dr: Liliana Sinha NP Ordering Physician: Liliana Sinha NP Date of Service: 07/08/24 Procedure(s): XR DEXA axial skeleton Accession Number(s): [id number] cc: CHRISTINA KASPER ; Liliana Sinha NP [place] [id number] Patient Name: MARYJANE TRIPP MRN: [id number] date: 1960 Sex: F Assigned Patient Location: MAMMO Current Patient Location: MAMMO Accession/Order Number: [id number] Exam Date: 07/08/2024 11:35 Report Date: 07/08/2024 13:23 At the request of: LILIANA SINHA Procedure: XR DEXA axial skeleton EXAMINATION: XR DEXA axial skeleton HISTORY: Medicare Wellness, Follow Up Exam Treatment Neoplasm COMPARISON: DEXA bone densitometry 07/07/2022 TECHNIQUE: Dual-energy X-ray absorptiometry (DXA) was performed. FINDINGS: SPINE ANALYSIS: Average bone mineral density is 1.462 g/cm2. T-score (standard deviation relative to young adult mean): 2.2 . +6.2% change since prior study. HIP ANALYSIS: Lowest bone mineral density is within the left femoral neck, 0.861 g/cm2. T-score (standard deviation relative to young adult mean): -1.3 . -1.0% change since prior study. XR/XR DEXA axial skeleton IMPRESSION: World Health Organization Classification: Osteopenia - Moderate Fracture Risk FRAX: Cannot be calculated. Pharmacologic treatment recommendations * No uniform recommendation applies to all patients. Management plans must be individualized. * Consider initiating pharmacologic treatment in postmenopausal women and men >= 50 years of age who have the following: Primary fracture prevention: * T-score <= - 2.5 at the femoral neck, total hip, lumbar spine, 33% radius (some uncertainty with existing data) by DXA. * Low bone mass (osteopenia: T-score between - 1.0 and - 2.5) at the femoral neck or total hip by DXA with a 10-year hip fracture risk >= 3% or a 10-year major osteoporosis-related fracture risk >= 20% (i.e., clinical vertebral, hip, forearm, or proximal humerus) based on the [place]-adapted FRAXregistered model. Secondary fracture prevention: * Fracture of the hip or vertebra regardless of BMD [4, 5]. * Fracture of proximal humerus, pelvis, or distal forearm in persons with low bone mass (osteopenia: T-score between - 1.0 and - 2.5). The decision to treat should be individualized in persons with a fracture of the proximal humerus, pelvis, or distal forearm who do not have osteopenia or low BMD [12, 13]. Grant MS, Precious SL, Abhijeet KL, Jailene EM, Bravo KG, AJ, Shelly ES. The clinician's guide to prevention and treatment of osteoporosis. Osteoporos Int. 2021;33(10):2238-6049. doi: 10.1007/l27492-225-67627-o. Epub 2021Feb 09. Erratum in: Osteoporos Int. 2021May 11;: PMID: 86122643; PMCID: [id number]. Electronically authenticated by: CASEY ROSE Date: 07/08/2024 13:23 Dictated By: Casey Rose M.D. Signed By: 07/08/24 1325 DD/ 1323 TD/TT: Philosophy Professor: Procedure Note Radiology, Radiologist, - 07/08/2024 [place] [address] XRay Report Signed Patient: MARYJANE TRIPP AMR#: [id number] : 8Acct:[id number] Age/Sex: 64 / FADM Date: 07/08/24 Loc: MAMMO Attending Dr: Liliana Sinha NP Ordering Physician: Liliana Sinha NP Date of Service: 07/08/24 Procedure(s): XR DEXA axial skeleton Accession Number(s): [id number] cc: CHRISTINA KASPER ; Liliana Sinha NP [address] [address] Patient Name: MARYJANE TRIPP MRN: [id number] date: 1960 Sex: F Assigned Patient Location: [facility] Current Patient Location: [facility] Accession/Order Number: [id number] Exam Date: 07/08/2024 11:35 Report Date: 07/08/2024 13:23 At the request of: LILIANA SINHA Procedure: XR DEXA axial skeleton EXAMINATION: XR DEXA axial skeleton HISTORY: Medicare Wellness, Follow Up Exam Treatment Neoplasm COMPARISON: DEXA bone densitometry 07/07/2022 TECHNIQUE: Dual-energy X-ray absorptiometry (DXA) was performed. FINDINGS: SPINE ANALYSIS: Average bone mineral density is 1.462 g/cm2. T-score (standard deviation relative to young adult mean): 2.2 . +6.2% change since prior study. HIP ANALYSIS: Lowest bone mineral density is within the left femoral neck, 0.861 g/cm2. T-score (standard deviation relative to young adult mean): -1.3 . -1.0% change since prior study. XR/XR DEXA axial skeleton IMPRESSION: World Health Organization Classification: Osteopenia - Moderate FractureRisk FRAX: Cannot be calculated. Pharmacologic treatment recommendations * No uniform recommendation applies to all patients. Management plans mustbe individualized. * Consider initiating pharmacologic treatment in postmenopausal women andmen >= 50 years of age who have the following: Primary fracture prevention: * T-score <= - 2.5 at the femoral neck, total hip, lumbar spine, 33%radius (some uncertainty with existing data) by DXA. * Low bone mass (osteopenia: T-score between - 1.0 and - 2.5) at thefemoral neck or total hip by DXA with a 10-year hip fracture risk >= 3% or b23-imwl major osteoporosis-related fracture risk >= 20% (i.e., clinical vertebral, hip, forearm, or proximal humerus) based on the [place]-adapted FRAXregisteredmodel. Secondary fracture prevention: * Fracture of the hip or vertebra regardless of BMD [4, 5]. * Fracture of proximal humerus, pelvis, or distal forearm in persons withlow bone mass (osteopenia: T-score between - 1.0 and - 2.5). The decision totreat should be individualized in persons with a fracture of the proximalhumerus, pelvis, or distal forearm who do not have osteopenia or low BMD [12, 13]. Grant MS, Precious SL, Abhijeet KL, Jailene EM, Bravo KG, AJ,Shelly ES. The clinician's guide to prevention and treatment of osteoporosis.Osteoporos Int. 2021;33(10):3701-9504. doi: 10.1007/s87241-827-77126-g. Ep. Erratum in: Osteoporos Int. 2021May 11;: PMID: [id number]; PMCID: [id number]. Electronically authenticated by: CASEY ROSE Date: 07/08/2024 13:23 Dictated By: Casey Rose M.D. Signed By:07/08/24 1325 DD/ 1323 TD/TT: Philosophy Professor: Liliana Sinha NP [facility] Final Result documented in this encounter Visit Diagnoses Not on filedocumented in this encounter Additional Health Concerns Assessment Noted Time PHQ-9 Depression Total Score: 9 01/10/20 24 10:00 AM EDT documented as of this encounter Care Teams Apprentice Photographer Relationship Specialty Start Date End Date Christina Kasper MD 112 [facility] [address] [place] [address] PCP - Janell GUERRERO 10/15/21 Christina Kasper MD [address] [address] PCP - General Family Medicine 02/22/23 Shawanda Meza, TIANA [address] [facility] [place] [address] Clinical Advocate Family Medicine 11/21/24 01/02/25 Simin Lanier LPN [address] [address] 01/02/25 Tri Walsh NP [address] [address] Nurse Practitioner Neurology 01/14/25 documented as of this encounter
--- OUTSIDE RECORDS SUMMARY | 2025-07-10 12:49 | XMS_ITS | Clinical Summary ---
Author Organization [facility] Address [address] [place] [address] Care Team Providers Care Passenger Coach Driver Name Role Phone Christina Kasper MD Unavailable Christina Kasper MD Primary Care Provider [phone] Simin Lanier LPN Unavailable Tri Walsh NP Unavailable [phone] Allergies Active Allergy Reactions Criticality Noted Date Comments Cephalexin Rash Low 12/21/2016 Other reaction(s): RASH Medications dapagliflozin (Farxiga) 10 MG Take 10 mg by mouth in the morning. Active fluticasone (Flonase) 50 MCG/ACT nasal spray Administer 1 spray into each nostril in the morning. Active ipratropium-albute rol (Duo-Neb) 0.5-2.5 mg/3 mL nebulizer solution Take 3 mL by nebulization in the morning and 3 mL at noon and 3 mL in the evening and 3 mL before bedtime. Active semaglutide (Rybelsus) 14 MG tablet Take 14 mg by mouth in the morning. Take before meals. Active Docusate Sodium (DSS) 100 MG capsule Take 100 mg by mouth 2 (two) times a day as needed. Active Lidocaine 4 % patch apply 1 patch externally for 12 hours ON then 12 hours off once daily for 30 DAYS 12/28/19 24 Active glucose blood (iPositioninguch Ultra) test stripIndications:T ype 2 diabetes mellitus without complication, without long-term current use of insulin ([facility]) use 1 TEST STRIP to TEST BLOOD SUGAR once daily 100 strip 03/14/20 24 Active albuterol HFA 90 mcg/act inhalerIndications :Asthmatic bronchitis without complication, unspecified asthma severity, unspecified whether persistent ([facility]) INHALE 2 PUFFS BY MOUTH and into the lungs EVERY 6 HOURS NEEDED 8.5 g 1 07/23/20 24 Active meloxicam (Mobic) 15 MG tabletIndications: Primary osteoarthritis involving multiple joints Take 1 tablet (15 mg) by mouth Daily 30 tablet 11 07/28/20 24 025 Active Oyster Shell Calcium 500 MG tabletIndications: Other specified disorders of bone density and structure, unspecified site TAKE 1 TABLET BY MOUTH TWICE DAILY IN THE MORNING and IN THE EVENING WITH MEALS 30 tablet 2 07/30/20 24 Active Nystop 637084 UNIT/GM powderIndications: Skin sensation disturbance APPLY TO THE AFFECTED AREA(S) TWICE DAILY 30 g 09/01/20 24 Active atorvastatin (Lipitor) 40 MG tabletIndications: Hypertriglyceridem ia Take 1 tablet (40 mg) by mouth Daily 90 tablet 3 09/02/20 24 025 Active amLODIPine (Norvasc) 5 MG tabletIndications: Hypertriglyceridem ia TAKE 1 TABLET BY MOUTH ONCE DAILY 100 tablet 3 10/06/20 24 Active DULoxetine (Cymbalta) [address] capsuleIndications :Major depressive disorder, remission status unspecified, unspecified whether recurrent Take 1 capsule (60 mg) by mouth Daily 100 capsule 2 10/06/20 24 Active ibuprofen 600 MG tabletIndications: Pain of left thumb Take 1 tablet (600 mg) by mouth 3 (three) times a day as needed for moderate pain 90 tablet 1 10/27/19 25 Active doxepin (SINEquan) 10 MG capsuleIndications :Insomnia, unspecified type TAKE 1 TO 2 CAPSULES BY MOUTH AT BEDTIME 60 capsule 1 02/03/20 25 Active tiZANidine (Zanaflex) 4 MG tabletIndications: Muscle spasm,Strain of other muscles, fascia and tendons at forearm level, right arm, initial encounter Take 1 tablet (4 mg) by mouth every 8 (eight) hours if needed for muscle spasms for up to 10 days 30 tablet 02/13/20 25 Active Fluticasone-Umecli din-Vilant (Trelegy Ellipta) 100-62.5-25 MCG/ACT aerosol powderIndications: Moderate persistent asthmatic bronchitis with acute exacerbation (HCC) INHALE 1 PUFF BY MOUTH DAILY 3 each 3 03/30/20 25 Active traZODone (Desyrel) 50 MG tabletIndications: Generalized anxiety disorder TAKE 1 TABLET BY MOUTH DAILY 100 tablet 05/04/20 25 Active furosemide (Lasix) 40 MG tabletIndications: Chronic diastolic heart failure (HCC) TAKE 1 TABLET BY MOUTH ONCE DAILY IN THE MORNING 100 tablet 05/04/20 25 Active ALPRAZolam (Xanax) 0.5 MG tabletIndications: Generalized anxiety disorder Take 1 tablet (0.5 mg) by mouth in the morning and 1 tablet (0.5 mg) before bedtime. 60 tablet 05/11/20 25 Active busPIRone (Buspar) 5 MG tabletIndications: SALOME (generalized anxiety disorder) Take 1 tablet (5 mg) by mouth in the morning and 1 tablet (5 mg) in the evening and 1 tablet (5 mg) before bedtime. 300 tablet 4 05/11/20 25 Active divalproex (Depakote ER) 250 MG 24 hr tabletIndications: History of stroke without residual deficits Take 1 tablet (250 mg) by mouth every other day 05/11/20 25 Active irbesartan (Avapro) 150 MG tabletIndications: Hypertension, unspecified type TAKE 1 TABLET BY MOUTH DAILY 90 tablet 2 05/29/20 25 Active gabapentin (Neurontin) 100 MG capsuleIndications :Restless legs TAKE 1 CAPSULE BY MOUTH THREE TIMES DAILY 120 capsule 2 05/29/20 25 Active traMADol (Ultram) 50 MG tabletIndications: Other chronic pain Take 1 tablet (50 mg) by mouth every 6 (six) hours if needed for severe pain 120 tablet 06/17/20 25 025 Active traMADol (Ultram) 50 MG tabletIndications: Other chronic pain Take 1 tablet (50 mg) by mouth every 6 (six) hours if needed for severe pain 120 tablet 04/28/20 25 025 Discontin ued(Reord er) Active Problems Problem Noted Date Diagnosed Date Preoperative clearance 10/27/2024 Assessment & Plan (10/27/2024 10:18 AM EST): Labs stable A1c was 5.7 EKG Stable, due to pulmonary disease has low QRS voltage No current Chest Pain Does have a history respiratory failure after infection but breathing is stable Patient is cleared for surgery Discontinue NSAIDs and aspirin one week prior Type 2 diabetes mellitus with other specified co mplication 10/27/2024 Assessment & Plan (05/11/2025 3:35 PM EDT): No Tobacco use Follow ADA 1800 diet low carbohydrate Continue Med Compliance Goal LDL less than 100 Goal BP 130/80 Goal HgbA1c < 7.0% Monitor Feet, monitor for infection Needs Exercise Yearly eye exams Prior to your visit today we reviewed your chart and outlined testing and treatment needed for your care. Reviewed poissble complications of diabetes including, loss of vision, kidney failure and increased risk of heart attacks and stroke. We made recommendations on how to control your blood sugars, and minimize your risk of these complications. We discussed your current barriers to a healthy living and importance of healthy diet and exercise. Assessment & Plan (10/27/2024 10:06 AM EST): No Tobacco use Follow ADA 1800 diet low carbohydrate Continue Med Compliance Goal LDL less than 100 Goal BP 130/80 Goal HgbA1c < 7.0% Monitor Feet, monitor for infection Needs Exercise Yearly eye exams Prior to your visit today we reviewed your chart and outlined testing and treatment needed for your care. Reviewed poissble complications of diabetes including, loss of vision, kidney failure and increased risk of heart attacks and stroke. We made recommendations on how to control your blood sugars, and minimize your risk of these complications. We discussed your current barriers to a healthy living and importance of healthy diet and exercise. Panlobular emphysema 10/27/2024 Assessment & Plan (10/27/2024 10:15 AM EST): CPAP as needed Chronic inflammatory demyelinating polyneuritis 10/27/2024 Assessment & Plan (10/27/2024 10:08 AM EST): Occurred after infection Resolved Chronic obstructive pulmonary disease, unspecifi ed 10/27/2024 Assessment & Plan (10/27/2024 10:17 AM EST): Continue Inhaler Mili Has not used nebulizer recently terminal carman (current) use of insulin 10/27/2024 Assessment & Plan (10/27/2024 10:18 AM EST): A1C was 5.7 Body mass index (BMI) 45.0-49.9, adult Assessment & Plan (10/27/2024 10:18 AM EST): Weight loss encouraged Medicare annual wellness visit, subsequent 08/26 Assessment & Plan (08/26/2024 2:49 PM EST): Colonoscopy every 10 years or Cologuard every 3 years ages 50-75 Flu Vaccine yearly Pneumovax and Prevnar Mammo yearly for women and PSA yearly for men Labs/Screening yearly to rule out Diabetes, Chronic Kidney disease and liver disease Hepatitis Screen forat risk populations Shingles vaccine after 65 if indicated Tetanus Vaccine every 10 years Lipids yearly under the age of 75 If Smoking history: one time CT scan of chest and Ultrasound of Aorta to screen for Anuerysm Benign essential hypertension 08/26/2024 Snoring 04/15/2024 Hypoxia 04/15/2024 Pain of left thumb 04/14/2024 Fibromyalgia 04/12/2024 Postoperative pain of right knee 04/12/2024 History of rotator cuff syndrome 04/12/2024 Carpal tunnel syndrome 04/12/2024 Brachial plexus lesion 04/12/2024 Hypersomnia 04/12/2024 Ulnar neuropathy of right upper extremity 2023 Paresthesias 04/12/2024 Piriformis syndrome of left side 01/01/2024 Assessment & Plan (01/01/2024 10:31 AM EDT): Did some stretching Showed patient stretches Subacute cough 08/20/2023 Adenoma of left adrenal gland 03/08/2023 Asthmatic bronchitis 03/08/2023 Assessment & Plan (08/20/2023 11:01 AM EST): I discussed with patient that while on prednisone, do not take any NSAIDs like Ibuprofen, Naprosyn, Alleve or motrin. Watch for any side effects like abdominal pain and nausea. Take the prednisone with food or milk. Prednisone may increase appetite. While on prednisone, watch for any sugar elevations. Add Probiotic to help replenish the good bacteria that are destroyed by the Antibiotics Florastor Florajen Align or try Activia in Yogurt Probiotics reduce the risk of antibiotic induced diarrhea Consider CXR Watch for respiratory compromise Chronic rhinitis 03/08/2023 Cubital tunnel syndrome 03/08/2023 Dependence on supplemental oxygen 03/08/2023 Unspecified diastolic (congestive) heart failure 03/08/2023 Assessment & Plan (10/27/2024 10:17 AM EST): No current symptoms No current swelling EF is normal Difficulty walking 03/08/2023 Generalized anxiety disorder 03/08/2023 Assessment & Plan (05/11/2025 3:36 PM EDT): Patient's Medicine is effective at controlling symptoms at current dose and frequency. PDMP reviewed with no evidence of overuse and abuse D/W patient to avoid use of benzodiazepines when consuming alcohol Advised against operating heavy machinery and driving long distances while on medicines. Assessment & Plan (08/26/2024 2:49 PM EST): Patient's Medicine is effective at controlling symptoms at current dose and frequency. PDMP reviewed with no evidence of overuse and abuse D/W patient to avoid use of benzodiazepines when consuming alcohol Advised against operating heavy machinery and driving long distances while on medicines. H/O total hysterectomy 03/08/2023 Status post right knee replacement 03/08/2023 Pure hyperglyceridemia 03/08/2023 Assessment & Plan (10/27/2024 10:18 AM EST): This is a chronic medical condition that is stable since last assessment. No changes in treatment are suggested at this time. Continue Current meds. 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 Treatment has been effective in controlling the patient's symptoms of Sleep Apnea. Will continue to monitor with routine follow up appointments. Osteoarthritis 03/08/2023 Other chronic pain 03/08/2023 Assessment & Plan (08/26/2024 2:48 PM EST): Medication choice and dosage is appropriate for patient's current medical conditions. Patient will continue to be required to be seen in our office at least every three months for monitoring. At each follow up visit I will reassess the patient's need for the medication. Patient is to have this medication prescribed only through this office. Failure to follow the rules and regulations will result in tapering and discontinuation of medications if applicable. Patient verbalized understanding. OARRS Report was reviewed for this patient. Other primary ovarian failure 03/08/2023 Peripheral neuropathy 03/08/2023 Primary insomnia 03/08/2023 Primary osteoarthritis of left knee 03/08/2023 Primary osteoarthritis of right knee 03/08/2023 Restless legs 03/08/2023 Right hand paresthesia 03/08/2023 Severe acute respiratory syn drome coronavirus 2 (SARS-CoV-2) detected 03/08/2023 Skin sensation disturbance 03/08/2023 Type 2 diabetes mellitus wit hout complication, without long-term current use of insulin 03/08/2023 Assessment & Plan (08/26/2024 2:49 PM EST): No Tobacco use Follow ADA 1800 diet low carbohydrate Continue Med Compliance Goal LDL less than 100 Goal BP 130/80 Goal HgbA1c < 7.0% Monitor Feet, monitor for infection Needs Exercise Yearly eye exams Prior to your visit today we reviewed your chart and outlined testing and treatment needed for your care. Reviewed poissble complications of diabetes including, loss of vision, kidney failure and increased risk of heart attacks and stroke. We made recommendations on how to control your blood sugars, and minimize your risk of these complications. We discussed your current barriers to a healthy living and importance of healthy diet and exercise. 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 Assessment & Plan (10/27/2024 10:07 AM EST): Stable currently Aggressive post op pulmonary toilet Chronic respiratory failure with hypoxia 021 Assessment & Plan (10/27/2024 10:16 AM EST): Overall stable Not on O2 Cleared for surgery Interstitial pulmonary disease, unspecified 04/15 Assessment & Plan (10/27/2024 10:16 AM EST): stable COVID-19 12/24/2020 Pneumonia due to COVID-19 virus 12/19/2020 Pain in left knee 11/18/2020 Osteoarthritis of knee 07/12/2020 Morbid (severe) obesity due to excess calories 0 12/25/2019 Assessment & Plan (10/27/2024 10:06 AM EST): Diet and Exercise Encouraged Assessment & Plan (08/26/2024 2:50 PM EST): Diet and Exercise Encouraged Anxiety 09/18/2019 Assessment & Plan (04/14/2024 10:52 AM EDT): Patient's Medicine is effective at controlling symptoms at current dose and frequency. PDMP reviewed with no evidence of overuse and abuse D/W patient to avoid use of benzodiazepines when consuming alcohol Advised against operating heavy machinery and driving long distances while on medicines. Adjustment disorder with depressed mood 05/08/20 19 History of respiratory system disease 03/20/2019 Loculated empyema 03/12/2019 Plantar wart 12/03/2018 Disorder of sacrum 09/02/2018 Overview (04/03/2023): Added automatically from request for surgery [id number] Added automatically from request for surgery [id number] Type 2 diabetes mellitus without complication H/O abdominal hysterectomy 07/09/2018 Status post hysterectomy 07/09/2018 History of stroke without residual deficits 05/16 Chronic pain 11/04/2017 Osteoarthritis of left hip 11/01/2017 Overview (04/03/2023): Added automatically from request for surgery [id number] Added automatically from request for surgery [id number] Primary ovarian failure 03/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 Obstructive sleep apnea syndrome 03/01/2017 Lumbar spinal stenosis 12/21/2016 Lumbosacral spondylosis without myelopathy 12/21 Spondylosis of lumbar region without myelopathy or radiculopathy 12/21/2016 Low back pain 05/15/2016 Disc displacement, lumbar 01/14/2016 Encounters Date Type Department Care Team Description 07/09/2025 Abstract [facility] [address] [facility] [address] [place] [address] Christina Kasper MD 06/17/2025 Refill [facility] [address] [facility] [address] [place] [address] Christina Kasper MD Other chronic pain 06/05/2025 Abstract [facility] [address] [facility] [address] [place] [address] Christina Kasper MD 05/29/2025 Refill [facility] [address] [facility] [address] [place] [address] Christina Kasper MD Hypertension, unspecified type ; Restless legs 05/18/2025 Telephone [facility] [address] [facility] [address] [place] [address] Jr. Jose Platt DO Dentist 05/11/2025 3:30 PM EDT Office Visit [facility] [address] [facility] [address] [place] [address] Christina Kasper MD Obstructive sleep apnea syndrome (Primary Dx); Type 2 diabetes mellitus with other specified complication, without long-term current use of insulin (HCC); Generalized anxiety disorder ; SALOME (generalized anxiety disorder) ; History of stroke without residual deficits 05/11/2025 Travel 05/04/2025 Refill [facility] [address] [facility] [address] [place] [address] Tereza Shane PA Chronic diastolic heart failure (HCC) 05/04/2025 Refill [facility] [address] [facility] [address] [place] [address] Christina Kasper MD Restless legs; Generalized anxiety disorder 05/04/2025 Patient Outreach [facility] [address] [place] [address] Simin Lanier LPN 04/27/2025 Refill [facility] [address] [facility] [address] [place] [address] Christina Kasper MD Other chronic pain 04/16/2025 Refill [facility] [address] [facility] [address] [place] [address] Shawanda Velasquez MA 04/15/2025 Patient Outreach [facility] [address] [place] [address] Simin Lanier LPN 04/13/[address] [facility] [address] [place] [address] Simin Lanier LPN 04/13/2025 Abstract [facility] [address] [facility] [address] [place] [address] Christina Kasper MD from Last 3 Months Immunizations Immunization Administration Dates Next Due Influenza Whole 08/11/2010 Influenza, High Dose Seasona l, Preservative Free 07/08/2024,06/08/2020 Influenza, High-dose Seasona l, Quadrivalent, Preservative Free 08/20/2023 Influenza, injectable, MDCK, preservative free, quadrivalent 08/22/2022,10/25/2021 Influenza, injectable, quadrivalent 08/28/2019 Influenza, injectable, quadr ivalent, preservative free 07/19/2021,06/08/2020,08/28/2019,06/28,06/15/2017,07/20/2016,07/20/2015 Influenza, seasonal, injecta ble, preservative free 05/20/2015 Influenza, seasonal, intrade rmal, preservative free 07/16/2018,07/15/2015 Moderna SARS-CoV-2 50mcg/0.5mL Booster 3 Pfizer Purple Cap SARS-CoV-2 Vaccination 03/14/2022 Pneumococcal Conjugate PCV 13 07/20/2016 Pneumococcal Conjugate PCV 20 08/22/2022 Pneumococcal Polysaccharide PPSV23 05/30/2018 Pneumococcal, Unspecified 07/15/2018 SARS-CoV-2, Unspecified 03/14/2022 Tdap 01/10/2024 Zoster, Recombinant 08/08/2019,05/29/2019 Family History Medical History Relation Name Comments Coronary artery disease Father Heart disease Father Hypertension Father Cancer Mother Leukemia Mother Cancer Other Hypertension Other Relation Name Status Comments Father Mother Other Social History Tobacco Use Types Packs/Day Years Used Date Smoking Tobacco: Former Cigarettes Q uit: 12/04/2017 Smokeless Tobacco: Never Tobacco Cessation:Counseling Given: Yes Alcohol Use Standard Drinks/Week Comments Never 0 [...] 07/16/2024 How often do you attend chur ch or orthodoxy services? 1 to 4 times per year 07/16/2024 Do you belong to any clubs o r organizations such as voodoo groups, unions, fraternal or athletic groups, or [...] Date Recorded Patient Health Questionnaire-2 Score 0 05/11/2025 [facility] Answer Date Recorded [...] the money to buy more. Never true 08/21/20 23 Within the past 12 months, t [...] place to sleep or slept in a [place] (including now)? No 06/04/2023 Comments Unknown Sex and Gender Information Value Date Recorded Sex Assigned at Not on file Legal Sex Female 7:30 PM EDT Gender Identity Not on file Sexual Orientation Not on file Last Filed Vital Signs Vital Sign Reading Time Taken Comments Blood Pressure 108/62 05/11/2025 3:29 PM EDT Pulse 90 05/11/2025 3:29 PM EDT Temperature 36.9 C (98.4 F) 08/20/2023 10:41 AM EST Respiratory Rate 17 02/12/2025 10:50 AM EDT Oxygen Saturation 94% 05/11/2025 3:29 PM EDT Inhaled Oxygen Concentration - - Weight 118 kg (260 lb) 05/11/2025 3:29 PM EDT Height 157.5 cm (5' 2 ) 05/11/2025 3:29 PM EDT Body Mass Index 47.55 05/11/2025 3:29 PM EDT Plan of Treatment Upcoming Encounters Date Type Department Care Team (Late st Contact Info) Description 08/11/2025 1:30 PM EDT Office Visit [facility] [address] [facility] [address] [place] [address] Christina Kasper MD [address] [facility] [address] [place], [place] [id number] 09/15/2025 10:00 AM EST Office Visit [facility] [address] [place] [address] Herve Quintana PA [address] [place] [address] Health Maintenance Due Date Last Done Comments CT Colonography 1960 FIT-DNA 1960 FIT 1960 FOBT 1960 Sigmoidoscopy 1960 Diabetes: Urine Protein Screening 08/08/2024 023, 12/25/2019 Influenza Vaccine (#1) 2025 , 08/20/2023, 08/22/2022, Additional history exists Mammogram 07/09/2025 07/09/2024, 06/16, 07/04/2023, Additional history exists Diabetes: Hemoglobin A1C 08/11/2025 025, 10/23/2024, 10/23/2024, Additional history exists Diabetes: Retinopathy Screening 06/03/2026 06/03/2024, 05/31/2023, 05/31/2023, Additional history exists Colonoscopy 07/12/2027 07/12/2017 Colorectal Cancer Screening 07/12/2027 Pneumococcal Vaccine: 65+ Years Completed 08/22/2022, 07/15/2018, 05/30/2018, Additional history exists Procedures Procedure Name Priority Date/Time Associated Diagnosis Comments POCT GLYCATED HEMOGLOBIN, TOTAL Routine 05/11/2025 3:41 PM EDT Type 2 diabetes mellitus with other specified complication, without long-term current use of insulin (HCC) MM TOMOSYNTHESIS SCREENING BI 07/09/2024 3:14 PM EDT DIABETIC RETINOPATHY SCREENING - OU - BOTH EYES Routine 06/03/2024 MICROALBUMIN / CREATININE URINE RATIO Routine 08/08/2023 8:58 AM EDT Type 2 diabetes mellitus without complication, without long-term current use of insulin (HCC) COLONOSCOPY Routine 07/12/2017 12:00 PM EDT from Last 3 Months or Most Recently Relevant to Health Maintenance Results * POCT Glycated hemoglobin, total (05/11/2025 3:41 PM EDT) Hemoglobin A1C 5.3 Blood 05/11/2025 3:41 PM EDT Christina Kasper MD POINT OF CARE TEST ENTER/EDIT OR DERABLES Final Result * MM TOMOSYNTHESIS SCREENING BI (07/09/2024 3:14 PM EDT) Anatomical Region Laterality Modality Other 07/09/2024 3:14 PM EDT Narrative 07/09/2024 3:14 [place] [address] Mammography Report Signed Patient: MARYJANE TRIPP MR#: [id number] : 1960 Acct:[id number] Age/Sex: 64 / F ADM Date: 07/08/24 Loc: MAMMO Attending Dr: Liliana Cho NP Ordering Physician: Liliana Cho NP Results: Date of Service: 07/08/24 Follow Up: Procedure(s): MM tomosynthesis screening BI Accession Number(s): [id number] cc: CHRISTINA KASPER ; Liliaan Cho NP Patient Name: MARYJANE TRIPP MR#: [id number] : 1960 Exam Date: 07/08/2024 Ordering Doctor: MRS. Liliana Cho EQUIPMENT OILER RADIOLOGY REPORT PROCEDURE: MM TOMOSYNTHESIS SCREENING BI [...] leukemia cancer at age 25. LOCATION: [facility] BREAST COMPOSITION: There are scattered areas of [...] M.D. Signed By: 07/09/244 DD/ 13 TD/TT: Assembler Final: Procedure Note Radiology, Radiologist, MD - 07/09/2024 [place] [address] Mammography Report Signed Patient: MARYJANE TRIPP AMR#: [id number] : 1960cct:[id number] Age/Sex: 64 / FADM Date: 07/08/24 Loc: MAMMO Attending Dr: Liliana Cho NP Ordering Physician: Liliana Cho NPResults: Date of Service: 07/08/24Follow Up: Procedure(s): MM tomosynthesis screening BI Accession Number(s): [id number] cc: CHRISTINA KASPER ; Liliana Cho NP Patient Name: MARYJANE TRIPP MR#: [id number] : 1960 Exam Date: 07/08/2024 Ordering Doctor: MRS. Liliana Cho NP RADIOLOGY REPORT PROCEDURE: MM TOMOSYNTHESIS SCREENING BI COMPARISON: MM TOMOSYNTHESIS SCREENING BI, 07/04/2023. MG MAMM [id number] DI CAD, 07/03/2022. MG MAMM SCREEN DI W CAD, 09/28/2020. MG MAMM BILSCRN W CAD DIG, 02/03/2014. INDICATIONS: Screening Calculator Name NCI Breast Cancer Risk Assessment Tool 5 Year Breast Cancer Risk 1.60% Lifetime Breast Cancer Risk 5.70% Personal Breast Cancer No Personal Ovarian Cancer No Treatments None Family Cancers Mother with leukemia cancer at age 27. LOCATION: [facility] BREAST COMPOSITION: There are scattered areas of [...] 15:13 Dictated By: Casey Rose M.D. Signed By:07/09/244 DD/ 13 TD/TT: Assembler Final: us Liliana Cho [facility] Final Result * Diabetic Retinopathy Screening - OU - Both Eyes (06/03/2024) RESULTS normal Anatomical Region Laterality Modality Head Other 06/03/2024 Christina Kasper MD OPHTH PHOTOGRAPHY Final Result * Microalbumin / creatinine, urine ratio (08/08/2023 8:58 AM EDT) CREATININE, RANDOM URINE 108 20 - 275 mg/dL [facility] ALBUMIN, URINE 0.5 See Note: mg/dL [facility] Comment: Reference Range: Reference Range Not established ALBUMIN/CREATININE RATIO, RANDOM URINE 5 <30 mcg/mg creat [facility] Comment: The ADA defines abnormalities in albumin excretion as follows: Albuminuria Category Result (mcg/mg creatinine) Normal to Mildly increased <30 Moderately increased 30-299 Severely increased > OR = 300 The ADA recommends that at least two of three specimens collected within a 3-6 month period be abnormal before considering a patient to be within a diagnostic category. Urine Urine specimen obtained by clean catch procedure / Unknown 08/08/2023 8:58 AM EDT 08/08/2023 2:40 PM EDT Narrative [facility] - 08/09/2023 11:32 AM EDT FASTING:YES FASTING: YES Resulting Agency Comment Performing Organization Information Site ID: [id number] Name: [facility] Address: [address] [place] [address], [address] [place] [id number] Director: Kel Choi MD us Suki Monte NP LAB URINE ORDERABLES Final R esult [facility] * Colonoscopy (07/12/2017 12:00 PM EDT) Anatomical Region Laterality Modality Endoscopy 07/12/2017 12:0 0 PM EDT Narrative 07/12/2017 12:00 PM EDT PERFORMED AT [facility] LOCATION:[id number] Procedure Note CONVERSION, GENERIC - 03/01/2023 PERFORMED AT [facility] LOCATION:[id number] Christina Kasper MD ENDOSCOPY PROCEDURE ORDERABLES F inal Result from Last 3 Months or Most Recently Relevant to Health Maintenance Insurance [employer] MEDICARE ADVANTAGE Advance Directives Documents on File Type Date Recorded Patient Immigration Investigator Expl anation Advance Directives and Living Will 03/11/2019 2008-07-21 [facility] Power Of Oracle Ebs Architect Care Teams Passenger Coach Driver Relationship Specialty Start Date End Date Christina Kasper MD [address] [facility] 110 [place] [address] PCP - Janell GUERRERO 10/15/21 Christina Kasper MD [address] [facility] 110 [place] [address] PCP - General Family Medicine 02/22/23 Simin Lanier LPN [address] [facility] 110 [place] [address] 01/02/25 Tri Walsh NP [address] [facility] 110 [place] [address] Nurse Practitioner Neurology 01/14/25
--- OUTSIDE RECORDS SUMMARY | 2025-07-10 12:49 | XMS_ITS | Encounter Summary ---
Author Organization [facility] Address [address] [place] [address] Care Team Providers Care Plumber Supervisor Name Role Phone Christina Martinez MD Unavailable Christina Martinez MD Primary Care Provider Shawanda Meza RN Unavailable Simin Lanier LPN Unavailable Tri Walsh NP Unavailable [phone] Encounter Details Date Type Department Care Team (Late st Contact Info) Description 11/27/2023 Abstract [facility] [place] [facility] 112 [facility] 110 [place] [phone] Christina Martinez MD 112 [facility] 110 [place], [place] [id number] Social History Tobacco Use Types Packs/Day Years [...] How often do you attend chur or hinduism services? More than 4 times per year 06/04/2023 Do you belong to any clubs o r organizations such as buddhism groups, unions, fraternal or athletic groups, or [...] Recorded Patient Health Questionnaire-2 Score 0 04/20/2023 [facility] of Occupat ionmt Health - Occupational Stress Questionnaire Answer Date [...] place to sleep or slept in a prison (including now)? No 06/04/2023 Comments Unknown Sex [...] Visit [facility] [address] [facility] 110 [place] [address] Christina Martinez MD [address] [facility] 110 [place] [address] 09/15/2025 10:00 AM EST Office Visit [facility] [address] [place] [address] Herve Quintana PA [address] [place] [address] documented as of this encounter Visit Diagnoses Not on filedocumented in this encounter Care Teams Plumber Supervisor Relationship Specialty Start Date End Date Christina Martinez MD [address] [facility] 110 [place] [address] PCP - Janell GUERRERO 10/15/21 Christina Martinez MD [address] [facility] 110 [place] [address] PCP - General Family Medicine 02/22/23 Shawanda Meza, TIANA [address] [place] [address] Clinical Advocate Family Medicine 11/21/24 01/02/25 Simin Lanier LPN [address] [facility] 110 [place] [address] 01/02/25 Tri Walsh NP [address] [facility] [address] [place] [address] Nurse Practitioner Neurology 01/14/25 documented as of this encounter
--- OUTSIDE RECORDS SUMMARY | 2025-07-10 12:49 | XMS_ITS | Encounter Summary ---
Author Organization [facility] Address [address] [place] [address] Care Team Providers Care Client Professional Name Role Phone Christina Martinez MD Unavailable Christina Martinez MD Primary Care Provider [phone] Simin Lanier LPN Unavailable Tri Walsh NP Unavailable [phone] Encounter Details Date Type Department Care Team (Late st Contact Info) Description 06/05/2025 Abstract [facility] [place] [facility] [address] [facility] 110 [place] [phone] Christina Martinez MD 112 [facility] 110 [place] [address] Social History Tobacco Use Types Packs/Day Years [...] How often do you attend chur or gnosticist services? 1 to 4 times per year 07/16/2024 Do you belong to any clubs o r organizations such as adventism groups, unions, fraternal or athletic groups, or [...] Recorded Patient Health Questionnaire-2 Score 0 05/11/2025 [facility] of Occupat ional Health - Occupational Stress [...] PM EDT Office Visit [facility] [address] [facility] 110 [place] [address] Christina Martinez MD [address] [facility] 110 [place] [address] 09/15/2025 10:00 AM EST Office Visit [facility] [address] [place] [address] Herve Quintana PA [address] [place] [address] documented as of this encounter Visit Diagnoses Not on filedocumented in this encounter Additional Health Concerns Assessment Noted Time PHQ-9 Depression Total Score: 9 01/10/20 24 10:00 AM EDT documented as of this encounter Care Teams Client Professional Relationship Specialty Start Date End Date Christina Martinez MD [address] [facility] 110 [place] [address] PCP - Janell GUERRERO 10/15/21 Christina Martinez MD [address] [facility] 110 [place] [address] PCP - General Family Medicine 02/22/23 Simin Lanier LPN [address] [facility] 110 [place] [address] 01/02/25 Tri Walsh NP [address] [facility] 110 [place] [address] Nurse Practitioner Neurology 01/14/25 documented as of this encounter
--- OUTSIDE RECORDS SUMMARY | 2025-07-10 12:49 | XMS_ITS | Encounter Summary ---
Author Organization [facility] Address [address] [place] [address] Care Team Providers Care Metal Rolling Mill Operator Name Role Phone Christina Martinez MD Unavailable Christina Martinez MD Primary Care Provider Shawanda Meza RN Unavailable Simin Lanier LPN Unavailable Tri Walsh NP Unavailable [phone] Encounter Details Date Type Department Care Team (Late st Contact Info) Description 12/28/[address] [place] [facility] 112 [facility] 110 [place] [phone] Christina Martinez MD 112 [facility] 110 [place], [place] [phone] Social History Tobacco Use Types Packs/Day Years [...] How often do you attend chur or sabianism services? More than 4 times per year [...] Patient Health Questionnaire-2 Score 0 04/20/2023 [facility] of Occupat ionwy Health - Occupational Stress Questionnaire Answer Date [...] 1:30 PM EDT Office Visit RUT [facility] [address] [facility] 110 [place] [address] Christina Martinez MD [address] [facility] 110 [place] [address] 09/15/2025 10:00 AM EST Office Visit [facility] [address] [place] [address] Herve Quintana PA [address] [place] [address] documented as of this encounter Visit Diagnoses Not on filedocumented in this encounter Care Teams Metal Rolling Mill Operator Relationship Specialty Start Date End Date Christina Martinez MD [address] [facility] 110 [place] [address] PCP - Janell GUERRERO 10/15/21 Christina Martinez MD [address] [facility] 110 [place] [address] PCP - General Family Medicine 02/22/23 Shawanda Meza, TIANA [address] [place] [address] Clinical Advocate Family Medicine 11/21/24 01/02/25 Simin Lanier LPN [address] [facility] 110 [place] [address] 01/02/25 Tri Walsh NP [address] [facility] 110 [place] [address] Nurse Practitioner Neurology 01/14/25 documented as of this encounter
--- OUTSIDE RECORDS SUMMARY | 2025-07-10 12:49 | XMS_ITS | Encounter Summary ---
Author Organization [facility] Address [address] [place] [address] Care Team Providers Care Corporate Pilot Name Role Phone Christina Martinez MD Unavailable Christina Martinez MD Primary Care Provider Shawanda Meza RN Unavailable Simin Lanier SALES PORTER Unavailable Tri Walsh NP Unavailable [phone] Encounter Details Date Type Department Care Team (Late Contact Info) Description 03/22/2023 Abstract [facility] [place] [facility] [address] [facility] 110 [place] [phone] Christina Martinez MD [address] [facility] 110 [place] [address] Social History Tobacco Use Types Packs/Day Years Used Date Smoking Tobacco: Former Cigarettes Q uit: 12/04/2017 Smokeless Tobacco: Never Comments Unknown Sex and Gender Information Value Date Recorded Sex Assigned at Not on file Legal Sex Female 7:30 PM EDT Gender Identity Not on file Sexual Orientation Not on file documented as of this encounter Plan of Treatment Upcoming Encounters Date Type Department Care Team ([facility] Contact Info) Description 08/11/2025 1:30 PM EDT Office Visit [facility] [place] [facility] [address] [facility] [address] [place] [phone] Christina Martinez MD [address] [facility] 110 [place] [address] 09/15/2025 10:00 AM EST Office Visit [facility] [address] [place] [address] Herve Quitnana PA [address] [place] [address] documented as of this encounter Visit Diagnoses Not on filedocumented in this encounter Care Teams Corporate Pilot Relationship Specialty Start Date End Date Christina Martinez MD [address] [facility] 110 [place] [address] PCP - Janell GUERRERO 10/15/21 Christina Martinez MD [address] [facility] 110 [place] [address] PCP - General Family Medicine 02/22/23 Shawanda Meza, TIANA [address] [place] [address] Clinical Advocate Family Medicine 11/21/24 01/02/25 Simin Lanier LPN [address] [facility] 110 [place] [address] 01/02/25 Tri Walsh NP [address] [facility] 110 [place] [address] Nurse Practitioner Neurology 01/14/25 documented as of this encounter
--- OUTSIDE RECORDS SUMMARY | 2025-07-10 12:49 | XMS_ITS | Encounter Summary ---
Author Organization [facility] Address [address] [place] [address] Care Team Providers Care Rubbish Collector Name Role Phone Christina Martinez MD Unavailable Christina Martinez MD Primary Care Provider [phone] Shawanda Meza RN Unavailable [phone] Simin Lanier LPN Unavailable Tri Walsh NP Unavailable [phone] Encounter Details Date Type Department Care Team (Late st Contact Info) Description 10/27/2024 Orders Only [facility] [place] [facility] [address] [facility] [address] [place] [address] Unallocated, Noms Provider, [address] [place], [place] [phone] Social History Tobacco Use Types Packs/Day Years [...] often do you attend chur ch or sabianist services? 1 to 4 times per year 07/16/2024 Do you belong to any clubs o r organizations such as druze groups, unions, fraternal or athletic groups, or [...] Recorded Patient Health Questionnaire-2 Score 0 08/26/2024 [facility] of Occupat ional Health - Occupational Stress [...] 1:30 PM EDT Office Visit [facility] [address] [facility] 110 [place] [address] Christina Martinez MD [address] [facility] 110 [place] [address] 09/15/2025 10:00 AM EST Office Visit [facility] [place] [address] Herve Quintana, YUNIER [address] [facility] [place] [address] documented as of this encounter Procedures Procedure Name Priority Date/Time Associated Diagnosis Comments ECG 12-LEAD Routine 10/27/2024 2:21 PM EST documented in this encounter Results * ECG 12 lead (10/27/2024 2:21 PM EST) us Noms Provider Unallocated MD ECG ORDERABLES Fin al Result documented in this encounter Visit Diagnoses Not on filedocumented in this encounter Additional Health Concerns Assessment Noted Time PHQ-9 Depression Total Score: 9 01/10/20 24 10:00 AM EDT documented as of this encounter Care Teams Rubbish Collector Relationship Specialty Start Date End Date Christina Martinez MD [address] [facility] 110 [place] [address] PCP - Janell GUERRERO 10/15/21 Christina Martinez MD [address] [facility] 110 [place] [address] PCP - General Family Medicine 02/22/23 Shawanda Meza, RN [address] [facility] [place] [address] Clinical Advocate Family Medicine 11/21/24 01/02/25 Simin Lanier LPN [address] [facility] 110 [place] [address] 01/02/25 Tri Walsh NP [address] [facility] 110 [place] [address] Nurse Practitioner Neurology 01/14/25 documented as of this encounter
--- OUTSIDE RECORDS SUMMARY | 2025-07-10 12:49 | XMS_ITS | Encounter Summary ---
Author Organization [facility] Address [address] [place] [address] Care Team Providers Care Head Of Design Name Role Phone Christina Martinez MD Unavailable Christina Martinez MD Primary Care Provider Shawanda Meza RN Unavailable Simin Lanier LPN Unavailable Tri Walsh NP Unavailable [phone] Encounter Details Date Type Department Care Team (Late st Contact Info) Description 02/06/2024 Abstract [facility] [place] [facility] 112 [facility] 110 [place] [phone] Christina Martinez MD 112 [facility] 110 [place], [place] [phone] Social History Tobacco Use Types Packs/Day Years [...] Recorded Patient Health Questionnaire-2 Score 1 01/10/2024 [facility] of Occupat ionid Health - Occupational Stress [...] place to sleep or slept in a mcc (including now)? No 06/04/2023 Comments Unknown Sex and Gender Information Value Date Recorded Sex Assigned at Not on file Legal Sex Female 7:30 PM EDT Gender Identity Not on file Sexual Orientation Not on file documented as of this encounter Plan of Treatment Upcoming Encounters Date Type Department Care Team (Late st Contact Info) Description 08/11/2025 1:30 PM EDT Office Visit [facility] [address] [facility] 110 [place] [address] Christina Martinez MD [address] [facility] 110 [place] [address] 09/15/2025 10:00 AM EST Office Visit [facility] [address] [place] [address] Herve Quintana PA [address] [place] [address] documented as of this encounter Visit Diagnoses Not on filedocumented in this encounter Additional Health Concerns Assessment Noted Time PHQ-9 Depression Total Score: 9 01/10/20 24 10:00 AM EDT documented as of this encounter Care Teams Head Of Design Relationship Specialty Start Date End Date Christina Martinez MD [address] [facility] 110 [place] [address] PCP - Janell GUERRERO 10/15/21 Christina Martinez MD [address] [facility] 110 [place] [address] PCP - General Family Medicine 02/22/23 Shawanda Meza, TIANA [address] [facility] [place] [address] Clinical Advocate Family Medicine 11/21/24 01/02/25 Simin Lanier LPN [address] [facility] 110 [place] [address] 01/02/25 Tri Walsh NP [address] [facility] 110 [place] [address] Nurse Practitioner Neurology 01/14/25 documented as of this encounter
--- OUTSIDE RECORDS SUMMARY | 2025-07-10 12:49 | XMS_ITS | Encounter Summary ---
Author Organization [facility] Address [address] [place] [address] Care Team Providers Care Mutuel Department Manager Name Role Phone Christina Martinez MD Unavailable Christina Martinez MD Primary Care Provider Shawanda Meza RN Unavailable [phone] Simin Lanier LPN Unavailable Tri Walsh NP Unavailable [phone] Encounter Details Date Type Department Care Team (Late st Contact Info) Description 11/05/2024 Abstract [facility] [place] [facility] 112 [facility] 110 [place] [phone] Christina Martinez MD 112 [facility] 110 [place] [address] Social History Tobacco Use Types Packs/Day Years [...] How often do you attend chur or restoration services? 1 to 4 times per year [...] Recorded Patient Health Questionnaire-2 Score 0 08/26/2024 [facility] of Occupat ional Health - Occupational Stress [...] 1:30 PM EDT Office [facility] [place] [facility] [address] [facility] 110 [place] [address] Christina Martinez MD [address] [facility] 110 [place] [address] 09/15/2025 10:00 AM EST Office Visit [facility] [place] [place] [address] Herve Quintana, YUNIER [address] [place] [address] documented as of this encounter Visit Diagnoses Not on filedocumented in this encounter Additional Health Concerns Assessment Noted Time PHQ-9 Depression Total Score: 9 01/10/20 24 10:00 AM EDT documented as of this encounter Care Teams Mutuel Department Manager Relationship Specialty Start Date End Date Christina Martinez MD [address] [facility] 110 [place] [address] PCP - Janell GUERRERO 10/15/21 Christina Martinez MD [address] [facility] 110 [place] [address] PCP - General Family Medicine 02/22/23 Shawanda Meza, TIANA [address] [place], [place] [address] Clinical Advocate Family Medicine 11/21/24 01/02/25 Simin Lanier LPN [address] [facility] 110 [place] [address] 01/02/25 Tri Walsh NP [address] [facility] 110 [place] [address] Nurse Practitioner Neurology 01/14/25 documented as of this encounter
--- OUTSIDE RECORDS SUMMARY | 2025-07-10 12:49 | XMS_ITS | Encounter Summary ---
Author Organization [facility] Address [address] [place] [address] Care Team Providers Care Negative Stripper Name Role Phone Christina Martinez MD Unavailable Christina Martinez MD Primary Care Provider [phone] Shawanda Meza RN Unavailable Simin Lanier LPN Unavailable Tri Walsh NP Unavailable [phone] Encounter Details Date Type Department Care Team (Late st Contact Info) Description 11/05/2024 Abstract [facility] [place] [facility] 112 [facility] 110 [place] [phone] Christina Martinez MD 112 [facility] 110 [place] [address] Social History Tobacco Use Types Packs/Day Years [...] How often do you attend chur or moravian services? 1 to 4 times per year 07/16/2024 Do you belong to any clubs o r organizations such as tenriism groups, unions, fraternal or athletic groups, or [...] Recorded Patient Health Questionnaire-2 Score 0 08/26/2024 [facility] of Occupat ional Health - Occupational Stress [...] 1:30 PM EDT [facility] [place] [facility] [address] [facility] 110 [place] [address] Christina Martinez MD [address] [facility] 110 [place] [address] 09/15/2025 10:00 AM EST Office Visit [facility] [place] [address] Herve Quintana, YUNIER [address] [place] [address] documented as of this encounter Visit Diagnoses Not on filedocumented in this encounter Additional Health Concerns Assessment Noted Time PHQ-9 Depression Total Score: 9 01/10/20 24 10:00 AM EDT documented as of this encounter Care Teams Negative Stripper Relationship Specialty Start Date End Date Christina Martinez MD [address] [facility] 110 [place] [address] PCP - Janell GUERRERO 10/15/21 Christina Martinez MD [address] [facility] 110 [place] [address] PCP - General Family Medicine 02/22/23 Shawanda Meza, TIANA [address] [place], [place] [phone] Clinical Advocate Family Medicine 11/21/24 01/02/25 Simin Lanier LPN [address] [facility] 110 [place] [address] 01/02/25 Tri Walsh NP [address] [facility] 110 [place] [address] Nurse Practitioner Neurology 01/14/25 documented as of this encounter
--- OUTSIDE RECORDS SUMMARY | 2025-07-10 12:49 | XMS_ITS | Encounter Summary ---
Author Organization [facility] Address [address] [place] [address] Care Team Providers Care Epitaxial Reactor Technician Name Role Phone Christina Martinez MD Unavailable Christina Martinez MD Primary Care Provider Shawanda Meza RN Unavailable Simin Lanier LPN Unavailable Tri Walsh NP Unavailable [phone] Encounter Details Date Type Department Care Team (Late st Contact Info) Description 05/15/2024 Abstract [facility] [place] [facility] 112 [facility] 110 [place] [phone] Christina Martinez MD 112 [facility] 110 [place], [place] [id number] Social History Tobacco Use Types Packs/Day Years [...] How often do you attend chur or uatsdin services? More than 4 times per year [...] Recorded Patient Health Questionnaire-2 Score 1 01/10/2024 [facility] of Occupat ionin Health - Occupational Stress Questionnaire Answer Date [...] [facility] [address] [facility] 110 [place] [address] Christina Martinez MD [address] [facility] 110 [place] [address] 09/15/2025 10:00 AM EST Office Visit [facility] [address] [place] [address] Herve Quintana PA [address] [place] [address] documented as of this encounter Visit Diagnoses Not on filedocumented in this encounter Additional Health Concerns Assessment Noted Time PHQ-9 Depression Total Score: 9 01/10/20 24 10:00 AM EDT documented as of this encounter Care Teams Epitaxial Reactor Technician Relationship Specialty Start Date End Date Christina Martinez MD [address] [facility] 110 [place] [address] PCP - Janell GUERRERO 10/15/21 Christina Martinez MD [address] [facility] 110 [place] [address] PCP - General Family Medicine 02/22/23 Shawanda Meza, TIANA [address] [facility] [place] [address] Clinical Advocate Family Medicine 11/21/24 01/02/25 Simin Lanier LPN [address] [facility] 110 [place] [address] 01/02/25 Tri Walsh NP [address] [facility] 110 [place] [address] Nurse Practitioner Neurology 01/14/25 documented as of this encounter
--- OUTSIDE RECORDS SUMMARY | 2025-07-10 12:49 | XMS_ITS | Encounter Summary ---
Author Organization [facility] Address [address] [place] [address] Care Team Providers Care Counseling Center Manager Name Role Phone Christina Martinez MD Unavailable Christina Martinez MD Primary Care Provider Shawanda Meza RN Unavailable Simin Lanier LPN Unavailable Tri Walsh NP Unavailable [phone] Encounter Details Date Type Department Care Team (Late st Contact Info) Description 09/23/2024 Abstract [facility] [place] [facility] 112 [facility] 110 [place] [phone] Christina Martinez MD 112 [facility] 110 [place] [address] Social History Tobacco Use Types Packs/Day Years [...] How often do you attend chur or gnosticism services? 1 to 4 times per year [...] Recorded Patient Health Questionnaire-2 Score 0 08/26/2024 [facility] of Occupat ional Health - Occupational Stress [...] place to sleep or slept in a nursing home (including now)? No 06/04/2023 Comments Unknown Sex and Gender Information Value Date Recorded Sex Assigned at Not on file Legal Sex Female 7:30 PM EDT Gender Identity Not on file Sexual Orientation Not on file documented as of this encounter Plan of Treatment Upcoming Encounters Date Type Department Care Team (Late st Contact Info) Description 08/11/2025 1:30 PM EDT [facility] [place] [facility] [address] [facility] 110 [place] [address] Christina Martinez MD [address] [facility] 110 [place] [address] 09/15/2025 10:00 AM EST Office Visit [facility] [place] [address] Herve Quintana, YUNIER [address] [place] [address] documented as of this encounter Visit Diagnoses Not on filedocumented in this encounter Additional Health Concerns Assessment Noted Time PHQ-9 Depression Total Score: 9 01/10/20 24 10:00 AM EDT documented as of this encounter Care Teams Counseling Center Manager Relationship Specialty Start Date End Date Christina Martinez MD [address] [facility] 110 [place] [address] PCP - Janell GUERRERO 10/15/21 Christina Martinez MD [address] [facility] 110 [place] [address] PCP - General Family Medicine 02/22/23 Shawanda Meza, TIANA [address] [place], [place] [phone] Clinical Advocate Family Medicine 11/21/24 01/02/25 Simin Lanier LPN [address] [facility] 110 [place] [address] 01/02/25 Tri Walsh NP [address] [facility] 110 [place] [address] Nurse Practitioner Neurology 01/14/25 documented as of this encounter
--- OUTSIDE RECORDS SUMMARY | 2025-07-10 12:49 | XMS_ITS | Encounter Summary ---
Author Organization [facility] Address [address] [place] [address] Care Team Providers Care Film Splicer Name Role Phone Christina Martinez MD Unavailable Christina Martinez MD Primary Care Provider Shawanda Meza RN Unavailable Simin Lanier LPN Unavailable Tri Walsh NP Unavailable [phone] Encounter Details Date Type Department Care Team (Late st Contact Info) Description 10/24/2023 Abstract [facility] [place] [facility] 112 [facility] 110 [place] [phone] Christina Martinez MD [address] [facility] 110 [place], [place] [phone] Social History Tobacco Use Types Packs/Day Years [...] How often do you attend chur or anabaptist services? More than 4 times per year 06/04/2023 Do you belong to any clubs o r organizations such as anabaptist groups, unions, fraternal or athletic groups, or [...] Recorded Patient Health Questionnaire-2 Score 0 04/20/2023 [facility] of Occupat iontx Health - Occupational Stress Questionnaire Answer Date [...] 1:30 PM EDT Office Visit [facility] [address] [facility] 110 [place] [address] Christina Martinez MD [address] [facility] 110 [place] [address] 09/15/2025 10:00 AM EST Office Visit [facility] [address] [place] [address] Herve Quintana PA [address] [place] [address] documented as of this encounter Visit Diagnoses Not on filedocumented in this encounter Care Teams Film Splicer Relationship Specialty Start Date End Date Christina Martinez MD [address] [facility] 110 [place] [address] PCP - Janell GUERRERO 10/15/21 Christina Martinez MD [address] [facility] 110 [place] [address] PCP - General Family Medicine 02/22/23 Shawanda Meza, TIANA [address] [place] [address] Clinical Advocate Family Medicine 11/21/24 01/02/25 Simin Lanier LPN [address] [facility] 110 [place] [address] 01/02/25 Tri Walsh NP [address] [facility] 110 [place] [address] Nurse Practitioner Neurology 01/14/25 documented as of this encounter
--- OUTSIDE RECORDS SUMMARY | 2025-07-10 12:49 | XMS_ITS | Encounter Summary ---
Author Organization [facility] Address [address] [place] [address] Care Team Providers Care Dev Technical Mgr Name Role Phone Christina Martinez MD Unavailable Christina Martinez MD Primary Care Provider [phone] Shawanda Meza RN Unavailable [phone] Simin Lanier LPN Unavailable Tri Walsh NP Unavailable [phone] Encounter Details Date Type Department Care Team (Late st Contact Info) Description 10/27/2024 Orders Only [facility] [place] [facility] [address] [facility] 110 [place] [address] Lynnette Sullivan LPN [address] [place] [address] Medicare annual wellness visit, subsequent Social History Tobacco Use Types Packs/Day Years [...] week 07/16/2024 How often do you attend [facility] or scientology services? 1 to 4 times per year 07/16/2024 Do you belong to any clubs o r organizations such as sabianism groups, unions, fraternal or athletic groups, or [...] Recorded Patient Health Questionnaire-2 Score 0 08/26/2024 [facility] of Occupat ional Health - Occupational Stress [...] 1:30 PM EDT [facility] Visit [facility] [address] [facility] 110 [place] [address] Christina Martinez MD [address] [facility] 110 [place] [address] 09/15/2025 10:00 AM EST Office Visit [facility] [address] [place] [address] Herve Quintana, PA [address] [place] [address] documented as of this encounter Visit Diagnoses Diagnosis Medicare annual wellness visit, subsequent documented in this encounter Additional Health Concerns Assessment Noted Time PHQ-9 Depression Total Score: 9 01/10/20 24 10:00 AM EDT documented as of this encounter Care Teams Dev Technical Mgr Relationship Specialty Start Date End Date Christina Martinez MD [address] [facility] 110 [place] [address] PCP - Janell GUERRERO 10/15/21 Christina Martinez MD [address] [facility] 110 [place] [address] PCP - General Family Medicine 02/22/23 Shawanda Meza, RN [address] [place] [address] Clinical Advocate Family Medicine 11/21/24 01/02/25 Simin Lanier LPN [address] [facility] 110 [place] [address] 01/02/25 Tri Walsh NP [address] [facility] 110 [place] [address] Nurse Practitioner Neurology 01/14/25 documented as of this encounter
--- OUTSIDE RECORDS SUMMARY | 2025-07-10 12:49 | XMS_ITS | Encounter Summary ---
Author Organization [facility] Address [address] [place] [address] Care Team Providers Care Lead Fire Protection Engineer Name Role Phone hCristina Martinez MD Unavailable Christina Martinez MD Primary Care Provider Shawanda Meza RN Unavailable Simin Lanier TRANSFER AND LINE UP WORKER Unavailable Tri Walsh NP Unavailable [phone] Encounter Details Date Type Department Care Team (Late Contact Info) Description 03/27/2023 Abstract [facility] [place] [facility] [address] [facility] 110 [place] [phone] Christina Martinez MD [address] [facility] 110 [place] [address] Social History Tobacco Use Types Packs/Day Years [...] Upcoming Encounters Date Type Department Care Team ([facility] Contact Info) Description 08/11/2025 1:30 PM EDT Office Visit [facility] [place] [facility] [address] [facility] [address] [place] [phone] Christina Martinez MD [address] [facility] 110 [place] [address] 09/15/2025 10:00 AM EST Office Visit [facility] [address] [place] [address] Herve Quintana PA [address] [place] [address] documented as of this encounter Visit Diagnoses Not on filedocumented in this encounter Care Teams Lead Fire Protection Engineer Relationship Specialty Start Date End Date Christina Martinez MD [address] [facility] 110 [place] [address] PCP - Janell GUERRERO 10/15/21 Christina Martinez MD [address] [facility] 110 [place] [address] PCP - General Family Medicine 02/22/23 Shawanda Meza, TIANA 1479 [facility] [place] [address] Clinical Advocate Family Medicine 11/21/24 01/02/25 Simin Lanier LPN [address] [facility] 110 [place] [address] 01/02/25 Tri Walsh NP [address] [facility] 110 [place] [address] Nurse Practitioner Neurology 01/14/25 documented as of this encounter
--- OUTSIDE RECORDS SUMMARY | 2025-07-10 12:49 | XMS_ITS | Clinical Summary ---
Author Organization [facility] Address [address] [place] [address] Care Team Providers Care Flash Ranging Crewmember Name Role Phone Christina Martinez MD Primary Care Provider [phone] Allergies Active Allergy Reactions Criticality Noted Date Comments Cephalexin Rash Low 12/21/2016 Other reaction(s): RASH Medications fluticasone-ume clidin-vilanter (Trelegy Ellipta) 100-62.5-25 mcg blister with device Trelegy Ellipta Acti ve acetaminophen (Tylenol) 500 mg tablet Take 500 mg by mouth every 6 (six) hours if needed. 1 Active albuterol 90 mcg/actuation inhaler albuterol sulfate HFA 90 mcg/actuation aerosol inhaler inhale 2 puffs by mouth and INTO THE LUNGS every 6 hours if needed for wheezing 1 Active ALPRAZolam (Xanax) 0.5 mg tablet alprazolam 0.5 mg tablet take 1 tablet by mouth twice a day Active amLODIPine (Norvasc) 5 mg tablet amlodipine 5 mg tablet take 1 tablet by mouth once daily Active aspirin 81 mg EC tablet Take 81 mg by mouth in the morning. Active atorvastatin (Lipitor) 20 mg tablet atorvastatin 20 mg tablet take 1 tablet by mouth once daily Active azelastine (Astelin) 137 mcg (0.1 %) nasal spray Administer 1 spray into affected nostril(s) twice a day. 1 Active budesonide (Pulmicort) 0.5 mg/2 mL nebulizer solution 2 mL every 12 (twelve) hours. Active busPIRone (Buspar) 5 mg tablet buspirone 5 mg tablet take 1 tablet by mouth three times a day Active dapagliflozin (Farxiga) 10 mg Farxiga 10 mg tablet take 1 tablet by mouth once daily Active divalproex (Depakote ER) 250 mg 24 hr tablet divalproex ER 250 mg tablet,extended release 24 hr take 1 tablet by mouth once daily Active DULoxetine (Cymbalta) [address] capsule duloxetine 60 mg capsule,delayed release take 1 capsule by mouth once daily Active fluticasone (Flonase) 50 mcg/actuation nasal spray fluticasone propionate 50 mcg/actuation nasal spray,suspension Active furosemide (Lasix) 40 mg tablet furosemide 40 mg tablet take 1 tablet by mouth once daily Active ipratropium-alb uteroL (Duo-Neb) 0.5-2.5 mg/3 mL nebulizer solution ipratropium 0.5 mg-albuterol 3 mg (2.5 mg base)/3 mL nebulization soln INHALE CONTENTS OF 1 VIAL IN NEBULIZER EVERY 4 HOURS 1 Active irbesartan (Avapro) 150 mg tablet irbesartan 150 mg tablet take 1 tablet by mouth once daily Active acidophilus-spo rogenes 35 million- 25 million cell tablet Take 1 tablet by mouth. 1 Active losartan (Cozaar) 50 mg tablet in the morning. Acti ve nystatin (Mycostatin) 100,000 unit/gram powder Nyamyc 100,000 unit/gram topical powder Active semaglutide (Rybelsus) 7 mg tablet Rybelsus 7 mg tablet take 1 tablet by mouth once daily Active traZODone (Desyrel) 50 mg tablet trazodone 50 mg tablet take 1 tablet by mouth once daily Active pantoprazole (ProtoNix) 40 mg EC tabletIndicatio ns:Gastroesopha geal reflux disease without esophagitis Take 1 tablet (40 mg) by mouth before breakfast. Do not crush, chew, or split. 30 tablet 2 Active Active Problems Problem Noted Date Diagnosed Date History of arthroplasty of right knee 08/04/2021 Chronic hypoxemic respiratory failure 05/09/2021 Interstitial lung disease 05/09/2021 Difficulty walking 04/28/2021 Primary osteoarthritis of left knee 04/28/2021 Pneumonia due to COVID-19 virus 12/19/2020 Pain in left knee 11/18/2020 Asthmatic bronchitis 07/19/2020 Morbid obesity 12/25/2019 Chronic rhinitis 12/10/2019 Anxiety 09/18/2019 Dependence on supplemental oxygen 05/08/2019 Adjustment disorder with depressed mood 05/08/20 Primary insomnia 04/03/2019 Chronic obstructive pulmonary disease 03/20/2019 History of respiratory system disease 03/20/2019 Loculated empyema 03/12/2019 Plantar wart 12/03/2018 Disorder of sacrum 09/02/2018 Overview (07/26/2022): Added automatically from request for surgery [id number] Leukocytosis 07/16/2018 Type 2 diabetes mellitus without complication Hypertriglyceridemia 07/11/2018 Status post hysterectomy 07/09/2018 History of stroke without residual deficits 05/16 Chronic pain 11/04/2017 Osteoarthritis of left hip 11/01/2017 Overview (07/26/2022): Added automatically from request for surgery [id number] Adenoma of left adrenal gland 06/05/2017 Primary ovarian failure 03/27/2017 Obstructive sleep apnea syndrome 03/01/2017 Lumbosacral spondylosis without myelopathy 12/21 Spondylosis of lumbar region without myelopathy or radiculopathy 12/21/2016 Generalized anxiety disorder 07/20/2016 Major depression 07/20/2016 Low back pain 05/15/2016 Encounters Date Type Department Care Team Description 05/28/2025 Telephone [facility] [address] [place] [phone] Murray Orlando MD from Last 3 Months Immunizations Immunization Administration Dates Next Due Influenza Whole 08/11/2010 Influenza, High Dose Seasona l, Preservative Free 06/07/2020 Influenza, injectable, MDCK, preservative free, quadrivalent 10/22/2021 Influenza, injectable, quadrivalent 08/28/2019,1 Influenza, injectable, quadr ivalent, preservative free 07/19/2021,06/08/2020,08/28/2019,06/28,06/15/2017,07/20/2016,07/20/2015 Influenza, seasonal, injecta ble, preservative free, 6 moonths & older 05/20/2015 Influenza, seasonal,quadriva lent, preservative free 07/16/2018,07/15/2018,07/15/2015 Pneumococcal Conjugate PCV 13 07/20/2016 Pneumococcal Polysaccharide PPV23 05/30/2018 Pneumococcal, Unspecified 07/15/2018 Unspecified Sars-Cov-2 Vaccination 03/14,10/22/2021,03/22/2021,02/26 Zoster, Recombinant 08/08/2019,05/29/2019 Social History Tobacco Use Types Packs/Day Years Used Date Smoking Tobacco: Former Cigarettes 1 40 Smokeless Tobacco: Never Tobacco Cessation:Counseling Given: Not Answered Alcohol Use Standard Drinks/Week Comments Not Asked 0 (1 standard drink = 0.6 oz pur e alcohol) Rarely/occasionally PHQ-2 Answer Date Recorded Patient Health Questionnaire-2 Score 1 07/27/2022 [place] [facility] Answer Date Rec orded Fear of Current or Ex-Partner Not on file Emotionally Abused Not on file 12/06/2023 Physically Abused Not on file 12/06/2023 Sexually Abused Not on file 12/06/2023 Physically or Sexually Abused Not on file Comments Unknown Sex and Gender Information Value Date Recorded Sex Assigned at Not on file Legal Sex Female 12:13 AM EDT Gender Identity Not on file Sexual Orientation Not on file Last Filed Vital Signs Vital Sign Reading Time Taken Comments Blood Pressure 102/65 07/27/2022 3:00 PM EDT Pulse 73 07/27/2022 3:00 PM EDT Temperature 36.2 C (97.2 F) 03/12/2019 10:32 AM EDT Respiratory Rate - - Oxygen Saturation 97% 07/27/2022 3:00 PM EDT Inhaled Oxygen Concentration - - Weight 101 kg (222 lb) 07/27/2022 3:00 PM EDT Height 157.5 cm (5' 2 ) 04/20/2022 2:46 PM EDT Body Mass Index 40.6 04/20/2022 2:46 PM EDT Plan of Treatment Health Maintenance Due Date Last Done Comments CT Colonography 1958 FIT-DNA 1958 FIT 1960 Medicare Annual Wellness (AWV) 1960 Sigmoidoscopy 1960 Diabetes: Retinopathy Screening 02/17/1968 Depression Screening 1970 Mammogram 1998 FOBT 01/27/2020 01/26/2019 Diabetes: Hemoglobin A1C 09/11/2021 06/11/2021, 02/0 01/2021 Fall Risk Screening 2023 Diabetes: Urine Protein Screening 08/08/2024 08/08/2023 COVID-19 Vaccine ( season) 2025 11/01/2022, 11/01/2022, 03/14/2022, Additional history exists Influenza Vaccine (#1) 2025 , 08/20/2023, 08/22/2022, Additional history exists Colonoscopy 07/12/2027 07/12/2017 Colorectal Cancer Screening 07/12/2027 Adult Tetanus 01/09/2034 01/10/2024 Zoster Vaccines Completed 08/08/2019, 05/29/2019 Pneumococcal Vaccine: 50+ Years Completed 08/22/2022, 07/15/2018, 05/30/2018, Additional history exists HIB Vaccines Aged Out No longer eligi ble based on patient's age to complete this topic HPV Vaccines Aged Out No longer eligi ble based on patient's age to complete this topic IPV Vaccines Aged Out No longer eligi ble based on patient's age to complete this topic Meningococcal B Vaccine Aged Out No l onger eligible based on patient's age to complete this topic Meningococcal Vaccine Aged Out No claudia sofi eligible based on patient's age to complete this topic Rotavirus Vaccines Aged Out No longer eligible based on patient's age to complete this topic Procedures Procedure Name Priority Date/Time Associated Diagnosis Comments HEMOGLOBIN A1C Routine 06/11/2021 10:47 AM EDT OCCULT BLOOD X 1, STOOL STAT 01/26/2019 11:03 AM EDT from Last 3 Months or Most Recently Relevant to Health Maintenance Results * Hemoglobin A1c (06/11/2021 10:47 AM EDT) Hemoglobin A1C 5.4 4.0 - 6.0 % LAB CONVERSIONS Estimated Average Glucose 108 mmol/L LAB CONVERSIONS 06/11/2021 10:4 7 AM EDT 06/11/2021 10:47 AM EDT us Fredrick Hernandez MD LAB BLOOD ORDERABLES Final Res ult LAB CONVERSIONS * Occult blood x 1, stool (01/26/2019 11:03 AM EDT) Fecal Occult Bld NEGATIVE NEGATIVE LAB CONVERSIONS 01/26/2019 11:0 3 AM EDT 01/26/2019 11:03 AM EDT Narrative LAB CONVERSIONS - 01/26/2019 12:27 PM EDT Yes: Add to Previous draw if able us Gerald Kim LAB BODY FLUIDS AND STOOLS ORDER YESICA Final Result LAB CONVERSIONS from Last 3 Months or Most Recently Relevant to Health Maintenance Insurance [employer] Care Teams Flash Ranging Crewmember Relationship Specialty Start Date End Date Christina Martinez MD [address] [place] [address] PCP - General 07/11/22
--- OUTSIDE RECORDS SUMMARY | 2025-07-10 12:49 | XMS_ITS | Encounter Summary ---
Author Organization [facility] Address [address] [place] [address] Care Team Providers Care Bellman Driver Name Role Phone Christina Martinez MD Unavailable Christina Martinez MD Primary Care Provider Shawanda Meza RN Unavailable Simin Lanier LPN Unavailable Tri Walsh NP Unavailable [phone] Encounter Details Date Type Department Care Team (Late st Contact Info) Description 11/05/2024 Abstract [facility] [place] [facility] 112 [facility] 110 [place] [id number] Christina Martinez MD 112 [facility] 110 [place] [address] Social History Tobacco Use Types Packs/Day Years [...] How often do you attend chur or voodoo services? 1 to 4 times per year 07/16/2024 Do you belong to any clubs o r organizations such as advent groups, unions, fraternal or athletic groups, or [...] Recorded Patient Health Questionnaire-2 Score 0 08/26/2024 [facility] of Occupat ional Health - Occupational Stress [...] 1:30 PM EDT [facility] [place] [facility] [address] [facility] 110 [place] [address] Christina Martinez MD [address] [facility] 110 [place] [address] 09/15/2025 10:00 AM EST Office Visit [facility] [place] [place] [address] Herve Quintana, YUNIER [address] [place] [address] documented as of this encounter Visit Diagnoses Not on filedocumented in this encounter Additional Health Concerns Assessment Noted Time PHQ-9 Depression Total Score: 9 01/10/20 24 10:00 AM EDT documented as of this encounter Care Teams Bellman Driver Relationship Specialty Start Date End Date Christina Martinez MD [address] [facility] 110 [place] [address] PCP - Janell GUERRERO 10/15/21 Christina Martinez MD [address] [facility] 110 [place] [address] PCP - General Family Medicine 02/22/23 Shawanda Meza, TIANA [address] [place], [place] [id number] Clinical Advocate Family Medicine 11/21/24 01/02/25 Simni Lanier LPN [address] [facility] 110 [place] [address] 01/02/25 Tri Walsh NP [address] [facility] 110 [place] [address] Nurse Practitioner Neurology 01/14/25 documented as of this encounter
--- OUTSIDE RECORDS SUMMARY | 2025-07-10 12:49 | XMS_ITS | Encounter Summary ---
Author Organization [facility] Address [address] [place] [address] Care Team Providers Care Door Liner Name Role Phone Christina Martinez MD Unavailable Christina Martinez MD Primary Care Provider [phone] Shawanda Meza RN Unavailable Simin Lanier LPN Unavailable Tri Walsh NP Unavailable [phone] Encounter Details Date Type Department Care Team (Late st Contact Info) Description 11/21/2023 Abstract [facility] [place] [facility] [address] [facility] 110 [place] [phone] Christina Martinez MD 112 [facility] 110 [place], [place] [address] Social History Tobacco Use Types Packs/Day Years [...] How often do you attend chur or sikh services? More than 4 times per year 06/04/2023 Do you belong to any clubs o r organizations such as episcopalian groups, unions, fraternal or athletic groups, or [...] Score 0 04/20/2023 [facility] of Occupat ionnd Health - Occupational Stress Questionnaire Answer Date [...] place to sleep or slept in a mcfp (including now)? No 06/04/2023 Comments Unknown Sex and Gender Information Value Date Recorded Sex Assigned at Not on file Legal Sex Female 7:30 PM EDT Gender Identity Not on file Sexual Orientation Not on file documented as of this encounter Plan of Treatment Upcoming Encounters Date Type Department Care Team (Late st Contact Info) Description 08/11/2025 1:30 PM EDT Office Visit [facility] [address] [facility] 110 [place] [address] Christina Martinez MD [address] [facility] 110 [place] [address] 09/15/2025 10:00 AM EST Office Visit [facility] [address] [place] [address] Herve Quintana PA [address] [place] [address] documented as of this encounter Visit Diagnoses Not on filedocumented in this encounter Care Teams Door Liner Relationship Specialty Start Date End Date Christina Martinez MD [address] [facility] 110 [place] [address] PCP - Janell GUERRERO 10/15/21 Christina Martinez MD [address] [facility] 110 [place] [address] PCP - General Family Medicine 02/22/23 Shawanda Meza, TIANA [address] [place] [address] Clinical Advocate Family Medicine 11/21/24 01/02/25 Simin Lanier LPN [address] [facility] 110 [place] [address] 01/02/25 Tri Walsh NP [address] [facility] 110 [place] [address] Nurse Practitioner Neurology 01/14/25 documented as of this encounter
--- OUTSIDE RECORDS SUMMARY | 2025-07-10 12:49 | XMS_ITS | Encounter Summary ---
Author Organization [facility] Address [address] [place] [address] Care Team Providers Care Sheet Metal Shop Foreman Name Role Phone Christina Martinez MD Unavailable Christina Martinez MD Primary Care Provider Sahwanda Meza RN Unavailable Simin Lanier LPN Unavailable Tri Walsh NP Unavailable [phone] Encounter Details Date Type Department Care Team (Late st Contact Info) Description 03/12/2024 Abstract [facility] [place] [facility] [address] [facility] 110 [place] [phone] Christina Martinez MD 112 [facility] 110 [place], [place] [id number] Social History Tobacco Use Types Packs/Day Years [...] How often do you attend chur or holiness services? More than 4 times per year 06/04/2023 Do you belong to any clubs o r organizations such as baptism groups, unions, fraternal or athletic groups, or [...] Patient Health Questionnaire-2 Score 1 01/10/2024 [facility] of Occupat ionmo Health - Occupational [...] EDT Office Visit [facility] [address] [facility] 110 [place] [address] Christina Martinez MD [address] [facility] 110 [place] [address] 09/15/2025 10:00 AM EST Office Visit [facility] [address] [place] [address] Herve Quintana PA [address] [place] [address] documented as of this encounter Visit Diagnoses Not on filedocumented in this encounter Additional Health Concerns Assessment Noted Time PHQ-9 Depression Total Score: 9 01/10/20 24 10:00 AM EDT documented as of this encounter Care Teams Sheet Metal Shop Foreman Relationship Specialty Start Date End Date Christina Martinez MD [address] [facility] 110 [place] [address] PCP - Janell GUERRERO 10/15/21 Christina Martinez MD [address] [facility] 110 [place] [address] PCP - General Family Medicine 02/22/23 Shawanda Meza, TIANA [address] [facility] [place] [address] Clinical Advocate Family Medicine 11/21/24 01/02/25 Simin Lanier LPN [address] [facility] 110 [place] [address] 01/02/25 Tri Walsh NP [address] [facility] 110 [place] [address] Nurse Practitioner Neurology 01/14/25 documented as of this encounter
--- OUTSIDE RECORDS SUMMARY | 2025-07-10 12:49 | XMS_ITS | Encounter Summary ---
Author Organization [facility] Address [address] [place] [address] Care Team Providers Care Stock Grader Name Role Phone Christina Martinez MD Unavailable Christina Martinez MD Primary Care Provider Shawanda Meza RN Unavailable Simin Lanier LPN Unavailable Tri Walsh NP Unavailable [phone] Encounter Details Date Type Department Care Team (Late st Contact Info) Description 05/26/2024 Abstract [facility] [place] [facility] 112 [facility] 110 [place] [phone] Christina Martinez MD 112 [facility] 110 [place], [place] [id number] Social History Tobacco Use Types Packs/Day Years [...] How often do you attend chur or bahai services? More than 4 times per year [...] Recorded Patient Health Questionnaire-2 Score 1 01/10/2024 [facility] of Occupat ionok Health - Occupational Stress Questionnaire Answer Date [...] 1:30 PM EDT Office Visit [facility] [address] [facility] 110 [place] [address] Christina Martinez MD [address] [facility] [address] [place] [address] 09/15/2025 10:00 AM EST Office Visit [facility] [address] [place] [address] Herve Quintana PA [address] [place] [address] documented as of this encounter Visit Diagnoses Not on filedocumented in this encounter Additional Health Concerns Assessment Noted Time PHQ-9 Depression Total Score: 9 01/10/20 24 10:00 AM EDT documented as of this encounter Care Teams Stock Grader Relationship Specialty Start Date End Date Christina Martinez MD [address] [facility] 110 [place] [address] PCP - Janell GUERRERO 10/15/21 Christina Martinez MD [address] [facility] 110 [place] [address] PCP - General Family Medicine 02/22/23 Shawanda Meza, TIANA [address] [facility] [place] [address] Clinical Advocate Family Medicine 11/21/24 01/02/25 Simin Lanier LPN [address] [facility] 110 [place] [address] 01/02/25 Tri Walsh NP [address] [facility] 110 [place] [address] Nurse Practitioner Neurology 01/14/25 documented as of this encounter
--- OUTSIDE RECORDS SUMMARY | 2025-07-10 12:49 | XMS_ITS | Encounter Summary ---
Author Organization [facility] Address [address] [place] [address] Care Team Providers Care Truckload Checker Name Role Phone Christina Martinez MD Unavailable Christina Martinez MD Primary Care Provider Shawanda Meza RN Unavailable Simin Lanier LPN Unavailable Tri Walsh NP Unavailable [phone] Encounter Details Date Type Department Care Team (Late st Contact Info) Description 06/02/2024 Abstract [facility] [place] [facility] 112 [facility] 110 [place] [phone] Christina Martinez MD 112 [facility] 110 [place], [place] [address] Social History Tobacco Use Types Packs/Day Years [...] Recorded Patient Health Questionnaire-2 Score 1 01/10/2024 [facility] of Occupat iondc Health - Occupational Stress Questionnaire Answer Date [...] place to sleep or slept in a usp (including now)? No 06/04/2023 Comments Unknown Sex and Gender Information Value Date Recorded Sex Assigned at Not on file Legal Sex Female 7:30 PM EDT Gender Identity Not on file Sexual Orientation Not on file documented as of this encounter Plan of Treatment Upcoming Encounters Date Type Department Care Team (Late st Contact Info) Description 08/11/2025 1:30 PM EDT Office Visit [facility] [address] [facility] 110 [place] [address] Christina Martinez MD [address] [facility] 110 [place] [address] 09/15/2025 10:00 AM EST Office Visit [facility] [address] [place] [address] Herve Quintana PA [address] [place] [address] documented as of this encounter Visit Diagnoses Not on filedocumented in this encounter Additional Health Concerns Assessment Noted Time PHQ-9 Depression Total Score: 9 01/10/20 24 10:00 AM EDT documented as of this encounter Care Teams Truckload Checker Relationship Specialty Start Date End Date Christina Martinez MD [address] [facility] 110 [place] [address] PCP - Janell GUERRERO 10/15/21 Christina Martinez MD [address] [facility] 110 [place] [address] PCP - General Family Medicine 02/22/23 Shawanda Meza, TIANA [address] [facility] [place] [address] Clinical Advocate Family Medicine 11/21/24 01/02/25 Simin Lanier LPN [address] [facility] 110 [place] [address] 01/02/25 Tri Walsh NP [address] [facility] 110 [place] [address] Nurse Practitioner Neurology 01/14/25 documented as of this encounter
--- OUTSIDE RECORDS SUMMARY | 2025-07-10 12:49 | XMS_ITS | Encounter Summary ---
Author Organization [facility] Address [address] [place] [address] Care Team Providers Care Desktop Support Technician Name Role Phone Christina Martinez MD Unavailable Christina Martinez MD Primary Care Provider [phone] Simin Lanier LPN Unavailable Tri Walsh NP Unavailable [phone] Encounter Details Date Type Department Care Team (Late st Contact Info) Description 04/13/2025 Abstract [facility] [place] [facility] [address] [facility] 110 [place] [phone] Christina Martinez MD 112 [facility] 110 [place] [address] Social History Tobacco Use Types Packs/Day Years [...] you attend chur or oriental orthodox services? 1 to 4 times per year 07/16/2024 Do you belong to any clubs o r organizations such as yarsani groups, unions, fraternal or athletic groups, or [...] Date Recorded Patient Health Questionnaire-2 Score 0 02/12/2025 [facility] of Occupat ional Health - Occupational Stress [...] to sleep or slept in a senior living (including now)? No 06/04/2023 Comments Unknown Sex [...] PM EDT Office Visit [facility] [address] [facility] 110 [place] [address] Christina Martinez MD [address] [facility] 110 [place] [address] 09/15/2025 10:00 AM EST Office Visit [facility] [address] [place] [address] Herve Quintana PA [address] [place] [address] documented as of this encounter Visit Diagnoses Not on filedocumented in this encounter Additional Health Concerns Assessment Noted Time PHQ-9 Depression Total Score: 9 01/10/20 24 10:00 AM EDT documented as of this encounter Care Teams Desktop Support Technician Relationship Specialty Start Date End Date Christina Martinez MD [address] [facility] 110 [place] [address] PCP - Janell GUERRERO 10/15/21 Christina Martinez MD [address] [facility] 110 [place] [address] PCP - General Family Medicine 02/22/23 Simin Lanier LPN [address] [facility] 110 [place] [address] 01/02/25 Tri Walsh NP [address] [facility] 110 [place] [address] Nurse Practitioner Neurology 01/14/25 documented as of this encounter
--- OUTSIDE RECORDS SUMMARY | 2025-07-10 12:49 | XMS_ITS | Encounter Summary ---
Author Organization [facility] Address [address] [place] [address] Care Team Providers Care Clinical Documentation Clerk Name Role Phone Christina Martinez MD Unavailable Christina Martinez MD Primary Care Provider [phone] Shawanda Meza RN Unavailable [phone] Simin Lanier LPN Unavailable Tri Walsh NP Unavailable [phone] Encounter Details Date Type Department Care Team (Late st Contact Info) Description 05/22/2024 Abstract [facility] [place] [facility] 112 [facility] 110 [place] [phone] Christina Martinez MD 112 [facility] 110 [place], [place] [id number] Social History Tobacco Use Types Packs/Day Years [...] How often do you attend chur or anglican services? More than 4 times per year [...] 1 01/10/2024 [facility] of Occupat iontn Health - Occupational Stress Questionnaire Answer Date [...] place to sleep or slept in a snf (including now)? No 06/04/2023 Comments Unknown Sex and Gender Information Value Date Recorded Sex Assigned at Not on file Legal Sex Female 7:30 PM EDT Gender Identity Not on file Sexual Orientation Not on file documented as of this encounter Plan of Treatment Upcoming Encounters Date Type Department Care Team (Late st Contact Info) Description 08/11/2025 1:30 PM EDT Office Visit [facility] [address] [facility] 110 [place] [address] Christina Martinez MD [address] [facility] 110 [place] [address] 09/15/2025 10:00 AM EST Office Visit [facility] [address] [place] [address] Herve Quintana PA [address] [place] [address] documented as of this encounter Visit Diagnoses Not on filedocumented in this encounter Additional Health Concerns Assessment Noted Time PHQ-9 Depression Total Score: 9 01/10/20 24 10:00 AM EDT documented as of this encounter Care Teams Clinical Documentation Clerk Relationship Specialty Start Date End Date Christina Martinez MD [address] [facility] 110 [place] [address] PCP - Janell GUERRERO 10/15/21 Christina Martinez MD [address] [facility] 110 [place] [address] PCP - General Family Medicine 02/22/23 Shawanda Meza, TIANA [address] [facility] [place] [address] Clinical Advocate Family Medicine 11/21/24 01/02/25 Simin Lanier LPN [address] [facility] 110 [place] [address] 01/02/25 Tri Walsh NP [address] [facility] 110 [place] [address] Nurse Practitioner Neurology 01/14/25 documented as of this encounter
--- OUTSIDE RECORDS SUMMARY | 2025-07-10 12:49 | XMS_ITS | Encounter Summary ---
Author Organization [facility] Address [address] [place] [address] Care Team Providers Care Tissue Packer Name Role Phone Christina Martinez MD Unavailable Christina Martinez MD Primary Care Provider Shawanda Meza RN Unavailable Simin Lanier LPN Unavailable Tri Walsh NP Unavailable [phone] Encounter Details Date Type Department Care Team (Late st Contact Info) Description 01/14/[address] [place] [facility] 112 [facility] 110 [place] [phone] Christina Martinez MD 112 [facility] 110 [place], [place] [address] Social History Tobacco Use Types Packs/Day Years [...] How often do you attend chur or jain services? More than 4 times per year 06/04/2023 Do you belong to any clubs o r organizations such as islam groups, unions, fraternal or athletic groups, or [...] Recorded Patient Health Questionnaire-2 Score 1 01/10/2024 [facility] of Occupat ionhi Health - Occupational [...] PM EDT Office Visit RUT [facility] [address] [facility] 110 [place] [address] Christina Martinez MD [address] [facility] 110 [place] [address] 09/15/2025 10:00 AM EST Office Visit [facility] [address] [place] [address] Herve Quintana PA [address] [place] [address] documented as of this encounter Visit Diagnoses Not on filedocumented in this encounter Additional Health Concerns Assessment Noted Time PHQ-9 Depression Total Score: 9 01/10/20 24 10:00 AM EDT documented as of this encounter Care Teams Tissue Packer Relationship Specialty Start Date End Date Christina Martinez MD [address] [facility] 110 [place] [address] PCP - Janell GUERRERO 10/15/21 Christina Martinez MD [address] [facility] 110 [place] [address] PCP - General Family Medicine 02/22/23 Shawanda Meza, TIANA [address] [place] [address] Clinical Advocate Family Medicine 11/21/24 01/02/25 Simin Lanier LPN [address] [facility] 110 [place] [address] 01/02/25 Tri Walsh NP [address] [facility] 110 [place] [address] Nurse Practitioner Neurology 01/14/25 documented as of this encounter
--- OUTSIDE RECORDS SUMMARY | 2025-07-10 12:49 | XMS_ITS | Encounter Summary ---
Author Organization [facility] Address [address] [place] [address] Care Team Providers Care Sleeping Car Conductor Name Role Phone Christina Martinez MD Unavailable Christina Martinez MD Primary Care Provider Shawanda Meza RN Unavailable [phone] Simin Lanier LPN Unavailable Tri Walsh NP Unavailable [phone] Encounter Details Date Type Department Care Team (Late st Contact Info) Description 12/12/2023 Abstract [facility] [place] [facility] 112 [facility] 110 [place] [phone] Christina Martinez MD 112 [facility] 110 [place], [place] [address] Social History Tobacco Use Types Packs/Day Years [...] How often do you attend chur or scientologist services? More than 4 times per year [...] Patient Health Questionnaire-2 Score 0 04/20/2023 [facility] of Occupat ionnj Health - Occupational Stress [...] [facility] [address] [facility] 110 [place] [address] Christina Martinez MD [address] [facility] 110 [place] [address] 09/15/2025 10:00 AM EST Office Visit [facility] [address] [place] [address] Herve Quintana PA [address] [place] [address] documented as of this encounter Visit Diagnoses Not on filedocumented in this encounter Care Teams Sleeping Car Conductor Relationship Specialty Start Date End Date Christina Martinez MD [address] [facility] 110 [place] [address] PCP - Janell GUERRERO 10/15/21 Christina Martinez MD [address] [facility] 110 [place] [address] PCP - General Family Medicine 02/22/23 Shawanda Meza, TIANA [address] [place] [address] Clinical Advocate Family Medicine 11/21/24 01/02/25 Simin Lanier LPN [address] [facility] 110 [place] [address] 01/02/25 Tri Walsh NP [address] [facility] 110 [place] [address] Nurse Practitioner Neurology 01/14/25 documented as of this encounter
--- OUTSIDE RECORDS SUMMARY | 2025-07-10 12:50 | XMS_ITS | Clinical Summary ---
Author Organization [employer] Address [id number] [address] [place] [address] Care Team Providers Care Blend Technician Name Role Phone Christina Martinez MD Primary Care Provider [phone] Allergies Active Allergy Reactions Criticality Noted Date Comments Cephalexin Rash Low 12/21/2016 Medications DULoxetine (CYMBALTA) 60 mg capsule Take 1 capsule (60 mg total) by mouth in the morning. Active traZODone (DESYREL) 50 mg tablet Take 1 tablet (50 mg total) by mouth nightly. Active MULTIVITAMIN ORAL Take 1 tablet by mouth daily. Active busPIRone (BUSPAR) 5 mg tablet Take 1 tablet (5 mg total) by mouth in the morning and 1 tablet (5 mg total) before bedtime. Active albuterol (PROVENTIL HFA;VENTOLIN HFA) 90 mcg/actuation inhalerIndicati ons:Pneumonia due to COVID-19 virus Inhale 2 puffs every 6 (six) hours as needed for wheezing. 18 g 11 1 Active azelastine (ASTELIN) 137 mcg (0.1 %) nasal spray Administer 1 spray into each nostril 2 (two) times a day. Use in each nostril as directed 30 mL 12 1 Active ALPRAZolam (XANAX) 0.5 mg tablet Take 1 tablet (0.5 mg total) by mouth as needed. 4 Active amLODIPine (NORVASC) 5 mg tablet Take 1 tablet (5 mg total) by mouth in the morning. 4 Active atorvastatin (LIPITOR) 40 mg tablet Take 1 tablet (40 mg total) by mouth in the morning. Active divalproex (DEPAKOTE ER) 250 mg 24 hr tablet Take 1 tablet (250 mg total) by mouth nightly. 4 Active doxepin (SINEquan) 10 mg capsule Take 2 capsules (20 mg total) by mouth nightly. 4 Active TRELEGY ELLIPTA 100-62.5-25 mcg blister with device Inhale 1 puff once daily. Active ipratropium-alb uteroL (DUONEB) 0.5 mg-3 mg(2.5 mg base)/3 mL nebulizer Inhale 3 mL by nebulization every 6 (six) hours as needed. Active irbesartan (AVAPRO) 150 mg tablet Take 1 tablet (150 mg total) by mouth in the morning. 4 Active semaglutide (RYBELSUS) 7 mg tablet Take 1 tablet by mouth in the morning. Active dapagliflozin propanediol (FARXIGA) 10 mg tablet Take 1 tablet (10 mg total) by mouth in the morning. Active gabapentin (NEURONTIN) 100 mg capsule Take 1 capsule (100 mg total) by mouth in the morning and 1 capsule (100 mg total) before bedtime. 4 Active Active Problems Problem Noted Date Diagnosed Date Primary osteoarthritis of right knee 11/17/2024 COVID-19 12/24/2020 Pneumonia due to COVID-19 virus 12/19/2020 Disorder of sacrum 09/02/2018 Overview (09/02/2018): Added automatically from request for surgery [id number] Osteoarthritis of left hip 11/01/2017 Overview (11/01/2017): Added automatically from request for surgery [id number] Disc displacement, lumbar 05/10/2017 Spondylosis of lumbar region without myelopathy or radiculopathy 12/21/2016 Lumbar spinal stenosis 12/21/2016 Lumbosacral spondylosis without myelopathy 12/21 Immunizations No known immunizations Family History Medical History Relation Name Comments Heart disease Father Cancer Mother Relation Name Status Comments Father Mother Social History Tobacco Use Types Packs/Day Years Used Date Smoking Tobacco: Former Cigarettes Q uit: 12/13/2018 Smokeless Tobacco: Never Alcohol Use Standard Drinks/Week Comments Not Currently 0 (1 standard drink = 0.6 oz pur e alcohol) [facility] Utilities Answer Date Recorded In the past 12 months has th e electric, gas, oil, or water company threatened to shut off services in your home? No 11/18/2024 Social Connection and Isolation Panel [NHANES] A nswer Date Recorded In a typical week, how many times do you talk on the phone with family, friends, or neighbors? Patient declined 12/24/2020 How often do you get togethe r with friends or relatives? Patient declined 12/24/2020 How often do you attend restorationism or cheondoism serv ices? Patient declined 12/24/2020 Do you belong to any clubs o r organizations such as restorationism groups, unions, fraternal or athletic groups, or school groups? Patient declined 12/24/2020 How often do you attend meet ings of the clubs or organizations you belong to? Patient declined 12/24/2020 Are you , , di vorced, , never , or living with a partner? Patient declined 12/24/2020 Overall Financial Resource Strain (CARDIA) Answe r Date Recorded How hard is it for you to pa y for the very basics like food, housing, medical care, and heating? Not hard at all 12/24/2020 PHQ-2 Answer Date Recorded Total Score 0 12/24/2020 [facility] Occupat ional Health - Occupational Stress Questionnaire Answer Date Recorded Do you feel stress - tense, restless, nervous, or anxious, or unable to sleep at night because your mind is troubled all the time - these days? Not at all 12/24/2020 Exercise Vital Sign Answer Date Recorde d On average, how many days pe r week do you engage in moderate to strenuous exercise (like a brisk walk)? Patient declined On average, how many minutes do you engage in exercise at this level? Patient declined 12/24/2020 PRAPARE - Transportation Answer Date Re corded In the past 12 months, has l ack of transportation kept you from medical appointments or from getting medications? No 01/2025 In the past 12 months, has l ack of transportation kept you from meetings, work, or from getting things needed for daily living? No 11/18/2024 Housing Instability Answer Date Recorde d Are you worried or concerned that in the next two months you may not have stable housing that you own, rent or stay in as a part of a household? No 11/18/2024 Childcare Answer Date Recorded Do problems getting child ca re make it difficult for you to work or study? No 12/24/2020 Employment Answer Date Recorded Do you need help finding a [facility] [employer] [facility] and/or a training program? No 12/24/2020 Hunger Screening Answer Date Recorded Within the past 12 months we worried whether our food would run out before we got money to buy more. Never True 11/18/2024 Within the past 12 months th e food we bought just didn't last and we didn't have money to get more. Never True 11/18/2024 Purpose - Life Answer Date Recorded I have a purpose and direction in my life. Stron gly Agree 12/24/2020 Comments No Sex and Gender Information Value Date Recorded Sex Assigned at Not on file Legal Sex Female 11:22 AM EDT Gender Identity Not on file Sexual Orientation Not on file Last Filed Vital Signs Vital Sign Reading Time Taken Comments Blood Pressure 103/62 11/19/2024 11:50 AM EST Pulse 84 11/19/2024 11:50 AM EST Temperature 36.7 C (98 F) 11/19/2024 11:50 AM EST Respiratory Rate 20 11/19/2024 11:5 0 AM EST Oxygen Saturation 92% 11/19/2024 11: 50 AM EST Inhaled Oxygen Concentration - - Weight 120.9 kg (266 lb 9.6 oz) 11/18/2024 4:31 PM EST Height 157.5 cm (5' 2 ) 11/18/2024 4:31 PM EST Body Mass Index 48.76 11/18/2024 4:31 PM EST Plan of Treatment Health Maintenance Due Date Last Done Comments Diabetic Ophthalmology Exam 1958 Depression Screening 1970 Adult BMI Follow Up Plan 02/17/1976 Diabetic Foot Exam 02/17/1976 Fall Risk Screening 2023 COVID-19 Vaccine (2024-2 6 season) 2025 11/01/2022, 03/14/2022, 10/22/2021, Additional history exists Influenza Vaccine 06/15/2025 07/08/2024, , 08/22/2022, Additional history exists Statin Use: Diabetic 10/23/2025 10/23/2024 Adult BMI Screening 11/18/2025 11/18/2024 Tobacco Screening 11/18/2025 11/18/2024 DTaP,Tdap and Td Vaccines (2 - Td or Tdap) 01/09/2034 01/10/2024 Zoster (Shingles) Vaccine Completed 08/08/2019, Goals Goal Patient Goal Type Associated Problems Recent Progress Patient-Stated? Author Home with [facility] General Yes Amanda Bartlett MSW Note: Evaluation of progress towards goal: In progress: DC to home today with [facility]. Medical Devices Implanted Type Area Vacuum Technician Device Identifier Shelf Expiration Date Model / Serial / Lot Cement Bn Bio 40 Rpl [id number] - Sn/A - [id number] Implanted:Qty: 2 on 11/18/2024 by Jose Platt Jr., DO at [facility] Cement Right: Knee [employer] 08/14/2026 [id number] / N/A / [id number] Component Ptlr 29mm Persona Alply Kn Strl Lf - Sn/A - [id number] Implanted:Qty: 1 on 11/18/2024 by Jose Platt Jr., DO at [facility] Orthopedic Implant Right: Knee [employer] [id number] 08/31/2029 42-5400-000 -29 / N/A / [id number] Component Fem D Kn Rt Lpsflx Gndr Kika? Nxgn Cocr Rpl [id number] - Sn/A - [id number] Implanted:Qty: 1 on 11/18/2024 by Jose Platt Jr., DO at [facility] Orthopedic Implant Right: Knee [employer] [id number] 02/18/2034 00-5764-014 -52 / N/A / [id number] Stem Xtn 30mm 15mm Nxgn Str Kn Rot Hng 75mm Strl Rpl [id number] - Sn/A - [id number] Implanted:Qty: 1 on 11/18/2024 by Jose Platt Jr., DO at [facility] Orthopedic Implant Right: Knee [employer] [id number] 07/28/2034-5988-012 -15 / N/A / [id number] Insert Artc 3-4 C-D 10mm Kn Fx Brng Prlng Nxgn Lpsflx Strl Rpl [id number] - [id number] Implanted:Qty: 1 on 11/18/2024 by Jose Platt Jr., DO at [facility] Orthopedic Implant Right: Knee [employer] 07/24/2029-5962-030 - [id number] Plate Tib 72n00rr Nxgn Kn Cmnt Mdlr Stm Prect 4 Tiv Pmma Rpl [id number] + [id number] - Sn/A - [id number] Implanted:Qty: 1 on 11/18/2024 by Jose Platt Jr., DO at [facility] Plate Right: Knee [employer] [id number] 06/28/2034-5980-037 -02 / N/A / [id number] Explanted Type Area Vacuum Technician Device Identifier Shelf Expiration Date Model / Serial / Lot Screw Gd 48mm Qd-Spr Hex Hd Mis Strl - Sn/A - [id number] Explanted:Qty: 2 on 11/18/2024 by Jose Platt Jr., DO at [facility] Screw Right: Knee [employer] [id number] 09/09/2034-5983-04 0-48 / N/A / [id number] Screw Bn 35mm 6.5mm St Hip Actb Trlg Strl Rpl [id number] 68921+32 - Sn/A - [id number] Explanted:Qty: 1 on 11/18/2024 by Jose Platt Jr., DO at [facility] Screw Right: Knee [employer] [id number] 09/28/2033-35 / N/A / [id number] Screw Bn 35mm 6.5mm St Hip Actb Trlg Strl [facility] [id number] 75781+32 - Sn/A - [id number] Explanted:Qty: 1 on 11/18/2024 by Jose Platt Jr., DO at [facility] Screw Right: Knee [employer] [id number] 09/27/2033-35 / N/A / [id number] Insurance [employer] MEDICARE Advance Directives * Full Code (Latest Code Status on File) Date Activated Date Inactivated Comments 11/17/2024 8:42 PM 11/17/2024 8:42 PM * Full Code Date Activated Date Inactivated Comments 12/24/2020 10:14 PM 12/30/2020 2:54 PM * Full Code Date Activated Date Inactivated Comments 12/20/2020 8:51 AM 12/24/2020 8:55 PM Care Teams Blend Technician Relationship Specialty Start Date End Date [place] [address] [place] [address] PCP - General 04/10/17
--- OUTSIDE RECORDS SUMMARY | 2025-07-10 12:50 | XMS_ITS | Encounter Summary ---
Author Organization [facility] Address [address] [place] [address] Care Team Providers Care Cell Tender Name Role Phone Christina Martinez MD Unavailable Christina Martinez MD Primary Care Provider [phone] Simin Lanier LPN Unavailable rTi Walsh NP Unavailable [phone] Encounter Details Date Type Department Care Team (Late st Contact Info) Description 02/13/2025 [facility] [address] [facility] [address] [place] [address] Liliana Cho, UNIVERSITY TEACHER [address] [facility] [address] [place] [address] Basic metabolic panel Social History Tobacco Use Types Packs/Day Years [...] How often do you attend chur or anabaptism services? 1 to 4 times per year [...] Recorded Patient Health Questionnaire-2 Score 0 02/12/2025 [facility] Occupat ional Health - [...] on file documented as of this encounter Miscellaneous Notes * Telephone Encounter - AFSHAN ORR - 02/13/2025 12:22 PM EDT LM for pt to CB. * Telephone Encounter - AFSHAN ORR - 02/13/2025 12:22 PM EDT ----- Message from Liliana Cho sent at 02/13/2025 9:39 AM EDT ----- Please call to notify the pt that her labs are all wnl. Continue the current plan as discussed at her visit and follow up if continued or worsening symptoms. ----- Message ----- From: Shey Zavala Lab Results In Sent: 02/13/2025 6:34 AM EDT To: Liliana Cho NP documented in this encounter Plan of Treatment Upcoming Encounters Date Type Department Care Team (Late st Contact Info) Description 08/11/2025 1:30 PM EDT Office Visit [facility] [address] [facility] [address] [place] [address] Christina Martinez MD [address] [facility] [address] [place] [address] 09/15/2025 10:00 AM EST Office Visit [facility] [address] [place] [address] Herve Quintana PA [address] [place] [address] documented as of this encounter Visit Diagnoses Not on filedocumented in this encounter Additional Health Concerns Assessment Noted Time PHQ-9 Depression Total Score: 9 01/10/20 24 10:00 AM EDT documented as of this encounter Care Teams Cell Tender Relationship Specialty Start Date End Date Christina Martinez MD [address] [facility] [address] [place] [address] PCP - Janell GUERRERO 10/15/21 Christina Martinez MD [address] [facility] [address] [place] [address] PCP - General Family Medicine 02/22/23 Simin Lanier LPN [address] [facility] [address] [place] [address] 01/02/25 Tri Walsh NP [address] [facility] [address] [place] [address] Nurse Practitioner Neurology 01/14/25 documented as of this encounter
--- OUTSIDE RECORDS SUMMARY | 2025-07-10 12:50 | XMS_ITS | Encounter Summary ---
Author Organization [facility] Address [address] [place] [address] Care Team Providers Care Tailor Women'S Garment Alteration Name Role Phone Christina Martinez MD Unavailable Christina Martinez MD Primary Care Provider [phone] Simin Lanier LPN Unavailable Tri Walsh NP Unavailable [phone] Encounter Details Date Type Department Care Team (Late st Contact Info) Description 02/13/2025 Abstract [facility] [place] [facility] 112 [facility] [address] [place] [phone] Christina Martinez MD 112 [facility] [address] [place] [address] Social History Tobacco Use Types Packs/Day Years [...] do you attend chur or sikh services? 1 to 4 times per year [...] Recorded Patient Health Questionnaire-2 Score 0 02/12/2025 [facility] of Occupat ional Health - Occupational Stress [...] PM EDT Office Visit [facility] [address] [facility] [address] [place] [address] Christina Martinez MD [address] [facility] [address] [place] [address] 09/15/2025 10:00 AM EST Office Visit [facility] [address] [place] [address] Herve Quintana PA [address] [place] [address] documented as of this encounter Visit Diagnoses Not on filedocumented in this encounter Additional Health Concerns Assessment Noted Time PHQ-9 Depression Total Score: 9 01/10/20 24 10:00 AM EDT documented as of this encounter Care Teams Tailor Women'S Garment Alteration Relationship Specialty Start Date End Date Christina Martinez MD [address] [facility] [address] [place] [address] PCP - Janell GUERRERO 10/15/21 Christina Martinez MD [address] [facility] [address] [place] [address] PCP - General Family Medicine 02/22/23 Simin Lanier LPN [address] [facility] [address] [place] [address] 01/02/25 Tri Walsh NP [address] [facility] [address] [place] [address] Nurse Practitioner Neurology 01/14/25 documented as of this encounter
--- OUTSIDE RECORDS SUMMARY | 2025-07-10 12:50 | XMS_ITS ---
Author Name DESTIN WALKER Address [address] [place] [address] [address] [place] [address] Phone Organization [employer] Address [address] [place] [address] [address] [place] [address] Phone Care Team Providers Care Living Manager Name Role Phone WALKERSELVIN DESTIN Unavailable [phone] FÁTIMA BURTON Unavailable [phone] ALLERGIES, ADVERSE REACTIONS AND ALERTS Allergy Name Allergy Date Allergy Status Allergy Severity Allergy Reaction UNKNOWN DRUG ALLERGIES MAY E XIST PROBLEMS Problem None PROCEDURES Procedure Description Date Notes NO PROCEDURES PERFORMED ASSESSMENTS Assessment None PLAN OF TREATMENT Assessment Planned Activity LOINC Planned Luis Carlos e None CONSULTATION NOTE Note Author Date None HISTORY AND PHYSICAL NOTE Note Author Date None PROGRESS NOTE Note Author Date None DISCHARGE SUMMARY Note Author Date None CHIEF COMPLAINT AND REASON FOR VISIT FUNCTIONAL STATUS Functional or Cognitive Find ing None MENTAL STATUS Cognitive Finding None ENCOUNTERS Encounter Type Provider Diagnoses Start Date Location Disc harged to None SOCIAL HISTORY Social Status Observation Unknown if ever smoked Sex: Female CARE TEAM INFORMATION Living Manager Provider ID Role Location Phone FÁTIMA MICHEAL [phone] [address] [place] [phone] INSURANCE PROVIDERS Payer Name Policy type / Coverage type Covered constitution party ID Policy Juan [employer] [id number] SELF
--- OUTSIDE RECORDS SUMMARY | 2025-07-10 12:50 | XMS_ITS | Encounter Summary ---
Author Organization [facility] Address [address] [place] [address] Care Team Providers Care Automatic Developer Name Role Phone Christina Martinez MD Unavailable Christina Martinez MD Primary Care Provider [phone] Simin Lanier LPN Unavailable Tri Walsh NP Unavailable [phone] Encounter Details Date Type Department Care Team (Late st Contact Info) Description 07/09/2025 Abstract [facility] [place] [facility] 112 [facility] [address] [place] [address] Christina Martinez MD 112 [facility] [address] [place] [address] Social History Tobacco Use Types Packs/Day Years [...] How often do you attend chur or samaritan services? 1 to 4 times per year 07/16/2024 Do you belong to any clubs o r organizations such as yazidi groups, unions, fraternal or athletic groups, or [...] Recorded Patient Health Questionnaire-2 Score 0 05/11/2025 [facility] of Occupat ional Health - Occupational Stress [...] PM EDT Office Visit [facility] [address] [facility] [address] [place] [address] Christina Martinez MD [address] [facility] 110 [place] [address] 09/15/2025 10:00 AM EST Office Visit [facility] [address] [place] [address] Herve Quintana PA [address] [place] [address] documented as of this encounter Visit Diagnoses Not on filedocumented in this encounter Additional Health Concerns Assessment Noted Time PHQ-9 Depression Total Score: 9 01/10/20 24 10:00 AM EDT documented as of this encounter Care Teams Automatic Developer Relationship Specialty Start Date End Date Christina Martinez MD [address] [facility] [address] [place] [address] PCP - Janell GUERRERO 10/15/21 Christina Martinez MD [address] [facility] [address] [place] [address] PCP - General Family Medicine 02/22/23 Simin Lanier LPN [address] [facility] 110 [place] [address] 01/02/25 Tri Walsh NP [address] [facility] [address] [place] [address] Nurse Practitioner Neurology 01/14/25 documented as of this encounter
--- OUTSIDE RECORDS SUMMARY | 2025-07-10 12:50 | XMS_ITS | Encounter Summary ---
Author Organization [facility] Address [address] [place] [address] Care Team Providers Care Portrait Painter Name Role Phone Christina Martinez MD Unavailable Christina Martinez MD Primary Care Provider [phone] Simin Lanier LPN Unavailable Tri Walsh NP Unavailable [phone] Encounter Details Date Type Department Care Team (Late st Contact Info) Description 02/24/2025 Abstract [facility] [place] [facility] 112 [facility] [address] [place] [phone] Christina Martinez MD 112 [facility] [address] [place] [address] Social History Tobacco Use Types Packs/Day Years [...] How often do you attend chur or jewish services? 1 to 4 times per year [...] Recorded Patient Health Questionnaire-2 Score 0 02/12/2025 [facility] [place] of Occupat ional Health - Occupational Stress [...] PM EDT Office Visit [facility] [address] [facility] [address] [place] [address] Christina Martinez MD [address] [facility] [address] [place] [address] 09/15/2025 10:00 AM EST Office Visit [facility] [address] [place] [address] Herve Quintana PA [address] [place] [address] documented as of this encounter Visit Diagnoses Not on filedocumented in this encounter Additional Health Concerns Assessment Noted Time PHQ-9 Depression Total Score: 9 01/10/20 24 10:00 AM EDT documented as of this encounter Care Teams Portrait Painter Relationship Specialty Start Date End Date Christina Martinez MD [address] [facility] 110 [place] [address] PCP - Janell GUERRERO 10/15/21 Christina Martinez MD [address] [facility] [address] [place] [address] PCP - General Family Medicine 02/22/23 Simin Lanier LPN [address] [facility] 110 [place] [address] 01/02/25 Tri Walsh NP [address] [facility] [address] [place] [address] Nurse Practitioner Neurology 01/14/25 documented as of this encounter
== END 2025-07-10 12:46 | disposition home or self-care (01) ==
LOC: MAMMO 12:45
PROVIDERS: PCP Family Medicine; Visit Provider Family Medicine
DX: Z12.31 Encounter for screening mammogram for malignant neoplasm of breast (principal); Z80.6 Family history of leukemia
CPT/HCPCS: 77063; 77067